=== PATIENT | male | born 1975 | race Asian ===

== ENCOUNTER 2020-09-02 18:24 | Inpatient (IN) | payer BC ==
[~2020-09-02] VITALS: Ht 170.2 cm; Wt 65.8 kg
--- NOTE | 2020-09-02 21:30 | NUR ---
GENERAL SCIENCE TEACHER NOTES PATIENT ARRIVED IN THE UNIT AT 2109 FROM [facility] VIA GURNEY. PATIENT ALERT AND ORIENTED X 4. NOTED WITH SOB WITH O2SAT AT 77 % ON 5 L, INCREASED IT TO 15L VIA HF NC FROM [facility], HUMIDIFIER APPLIED. O2 SAT WENT UP TP 91 % PATIENT REFUSED NON REBREATHER MASK. STATES "I WILL BE FINE, LET ME SETTLE DOWN" PT REFUSES ANXIETY, DENIES ANY PAIN. RIGHT HAND SALINE LOCK G20, FLUSHED ASEPTICALLY. NO SIGNS OF INFECTION. SKIN ASSESSMENT DONE. SKIN INTACT, NO SKIN BREAKDOWN NOTED. KEPT HOB ELEVATED. ON TELE SR HR79. VS STABLE. NO FEVER, NO COUGHING. WAITING FOR MD TO GIVE ADMITTING ORDERS. SIDE RAILS UP X 2. CALL LIGHT WITHIN REACH. BED LOCKED IN LOWEST POSITION. WILL CONTINUE TO MONITOR CLOSELY.
--- NOTE | 2020-09-02 22:00 | NUR ---
MUTTON PUNCHER DOCTOR JUAN INFORMED REGARDING NEED OF ADMITTING ORDERS. MRSA SWAB SPECIMEN COLLECTED AND SEND TO LAB.
[2020-09-02] MEDS ORDERED: VALS1TAB6 PO (23:11)
[2020-09-02] MEDS ORDERED: THIA100T88 PO (23:11)
[2020-09-02] MEDS ORDERED: ENOX40DI SQ (23:11)
[2020-09-02] MEDS ORDERED: ZINC220T4 PO (23:11)
[2020-09-02] MEDS ORDERED: MELA3TAB41 PO (23:11)
[2020-09-02] MEDS ORDERED: REMD100V IV (23:11)
[2020-09-02] MEDS ORDERED: DEXA4TAB PO (23:11)
[2020-09-02] MEDS ORDERED: CHOL200026 PO (23:11)
[2020-09-02] MEDS ORDERED: ASCO100058 PO (23:11)
[2020-09-02] MEDS ORDERED: HYDROCODONE/APAP 5/325MG TABLET PO PRN (23:30)
[2020-09-02] MEDS ORDERED: MAG HYDROX/AL HYDROX/SIMETH 30 ML UDC PO PRN (23:30)
[2020-09-02] MEDS ORDERED: Z GUARD REMEDY 2 OZ OINT TP PRN (23:30)
[2020-09-02] MEDS ORDERED: ZOLPIDEM TARTRATE 5 MG TABLET PO PRN (23:30)
[2020-09-02] MEDS ORDERED: MAGNESIUM HYDROXIDE 30 ML UDC PO PRN (23:30)
[2020-09-02] MEDS ORDERED: ONDANSETRON HCL/PF 4 MG/2 ML VIAL IVP PRN (23:30)
--- NOTE | 2020-09-02 23:45 | NUR ---
FRAUD MANAGER NOTES PER PT, NASAL CANNULA CAME OFF ACCIDENTALLY. O2 SAT DROP DOWN TO 70S. NO RESP DISTRESS NOTED. RE APPLIED HF NC AT 15L. O2SAT WENT UP TO 90-91 %
[2020-09-03] VITALS (16 sets, daily range): BP systolic 96–129; BP diastolic 61–93
[2020-09-03 00:01] LABS: C-REACTIVE PROTEIN 5.9 mg/dL (0.0-0.9)
--- NOTE | 2020-09-03 00:51 | NUR ---
INSPECTION MACHINE TENDER NOTE PATIENT O2 SAT AT 94-95 % ON HFNC 15L.
--- NOTE | 2020-09-03 02:21 | NUR ---
ICEBOX MAN NOTE PT BECOMES ANXIOUS, DR MARTINEZ INFORMED, RECEIVED NEW ORDERED. ORDER NOTED AND CARRIED OUT. ATIVAN 0.5 MG PO GIVEN.
[2020-09-03] MEDS ORDERED: LORAZEPAM 0.5 MG TABLET PO PRN (02:30)
--- NOTE | 2020-09-03 03:21 | NUR ---
SECURITY STRATEGIST NOTE PT FALL ASLEEP, ANXIETY SUBSIDED. CONTINUE TO MONITOR HIM.
[2020-09-03] MEDS ORDERED: ALBUTEROL SULFATE INH 18 GM HFA.AER.AD IH PRN ×2 (03:30)
[2020-09-03] MEDS ORDERED: ALBUTEROL SULFATE 8 GM HFA.AER.AD ONE (05:10)
[2020-09-03 06:47] LABS: BASOPHILS % (AUTO) 0.1 % (0.0-2.0); HEMATOCRIT 49 % (39-51); HEMOGLOBIN 16.2 g/dL (13.5-17.5); LYMPHOCYTES % (AUTO) 7.1 % (20.0-44.0); MEAN CORPUSCULAR HGB CONC 33 g/dl (31.0-36.0); MEAN CORPUSCULAR VOLUME 93 fL (80-96); MONOCYTES # (AUTO) 1.1 /CMM (0.1-1.30); MONOCYTES % (AUTO) 8.2 % (2.0-12.0); NEUTROPHILS # (AUTO) 11.3 /CMM (1.8-8.9); NEUTROPHILS % (AUTO) 84.6 % (43.0-81.0); PLATELET COUNT (AUTO) 260 /CMM (150-450); RED BLOOD CELL COUNT(AUTO) 5.24 MIL/uL (4.5-6.0); WHITE BLOOD COUNT (AUTO) 13.4 K/uL (4.3-11.0)
--- NOTE | 2020-09-03 06:50 | NUR ---
PATIENT TRANSPORT OFFICER CLOSING NOTE PATIENT SATURATING IN 82-84% ON HFNC 15LPM. PT AGREED TO HAVE NON REBREATHER, APPLIED AT 15LPM. SATING AT 90 % AT THIS TIME. PT HAVING ANXIETY ON AND OFF, REASSURED PT. LEFT MSG TO DR MARTINEZ. WAITING FOR CALL BACK. KEPT IN A CALM AND COMFORTABLE ENVIRONMENT. ON FREQUENT VISUAL CHECK, ATTENDED TO NEEDS.
[2020-09-03 07:08] LABS: CALCIUM, SERUM 9.1 mg/dL (8.5-10.1); CARBON DIOXIDE 30 mmol/L (21-32); CHLORIDE 101 mmol/L (98-107); GLUCOSE 123 mg/dL (74-106); MAGNESIUM 2.8 mg/dL (1.8-2.4); PHOSPHORUS 3.2 mg/dL (2.5-4.9); POTASSIUM 3.4 mmol/L (3.5-5.1); SODIUM SERUM 142 mmol/L (136-145); UREA NITROGEN, BLOOD 15 mg/dL (7-18)
[2020-09-03 07:20] LABS: D-DIMER > 35.20 mg/L(FEU (0.17-0.50)
[2020-09-03] MEDS: LORAZEPAM INJ 2 MG/ML VIAL IV PRN ×2 (07:26→17:56)
--- NOTE | 2020-09-03 07:26 | NUR ---
CERTIFIED PEDIATRIC NURSE PRACTITIONER NOTE PATIENT REMOVED THE NONREBREATHER, PER PT ITS UNCOMFORTABLE. WAS PUT ON HFNC AGAIN ON 15LPM. EXPLAINED THAT NONREBREATHER WILL HELP HIS O2 TO GO UP. PT STILL INSIST WITH THE NC. O2 SAT AT 85 %. KEPT HOB ELEVATED. PT IS HAVING SEVERE ANXIETY. MD MADE AWARE, ORDERED ATIVAN 1MG IVP Q6H PRN NOTED AND CARRIED OUT. WILL ENDORSE TO NEXT SHIFT NURSE FOR COMFORT. ALL SAFETY MEASURES IMPLEMENTED PER PROTOCOL. CALL LIGHT WITHIN REACH BED LOCKED, IN LOWEST POSITION. WILL ENDORSE TO NEXT SHIFT NURSE FOR COMFORT.
--- NOTE | 2020-09-03 07:35 | NUR ---
ms rn received patient on bed, awake,alert,oriented x4,on nasal cannula 15 liters saturating 81-83%, refused non rebreather mask per night baker, will continue to monitor patient.
[2020-09-03 08:21] LABS: ALANINE AMINOTRANSFERASE 213 U/L (12-78); ALBUMIN 2.7 g/dL (3.4-5.0); ALKALINE PHOSPHATASE 140 U/L (46-116); ASPARTATE AMINOTRANSFERASE 95 U/L (15-37); BILIRUBIN,DIRECT 0.2 mg/dL (0.0-0.2); BILIRUBIN,TOTAL 0.6 mg/dL (0.2-1.0); TOTAL PROTEIN, SERUM 7.4 g/dL (6.4-8.2)
--- NOTE | 2020-09-03 08:30 | NUR ---
ms rn refused breakfast, patient took all his morning meds, all needs attended.
[2020-09-03] MEDS ORDERED: ENOXAPARIN SODIUM 40 MG/0.4 ML DISP.SYRIN SQ SCH (09:00)
[2020-09-03] MEDS ORDERED: REMDESIVIR (CHARGED) 200 MG, *LOADING DOSE 1 EA in IV NS 0.9% 210 ML IV ONE (09:00)
[2020-09-03] MEDS: DEXAMETHASONE SOD PHOSPHATE 10 MG/ML VIAL IV SCH (09:16)
[2020-09-03] MEDS: CHOLECALCIFEROL 1,000 UNIT TABLET (VIT D3) PO SCH (09:16)
[2020-09-03] MEDS: ZINC SULFATE 220 MG CAPSULE PO SCH (09:17)
[2020-09-03] MEDS: ASCORBIC ACID 500 MG TABLET PO SCH (09:17)
[2020-09-03] MEDS: THIAMINE HCL 100 MG TABLET PO SCH (09:17)
--- NOTE | 2020-09-03 09:30 | NUR ---
ms rn patient is anxious, saturation going down to 60%, hard time breathing, repositioned to right side, w/ saturation of 88%, waiting to be transferred to icu.
[2020-09-03] MEDS ORDERED: POTASSIUM CHLORIDE 20 MEQ TAB.PRT.SR PO ONE (10:00)
--- NOTE | 2020-09-03 10:05 | NUR ---
rn patient transferred to icu, report given to Cipriano saunders.
--- NOTE | 2020-09-03 10:10 | NUR ---
ICU/RN: RECEIVED PT FROM DOMI. PT ANXIOUS, DESATURATING, INCREASED WORK OF BREATHING NOTED. PLACED ON HI-FLOW 40LITERS AND 100% FIO2. PT ALERT, AWAKE, FOLLOWS COMMANDS. SINUS TACH ON TELE. URINAL AT BEDSIDE, SKIN INTACT. ALL NEEDS WILL BE ATTENDED TO, SAFETY MEASURES TAKEN, BED IN LOW POSITION, SIDE RAILS UP, CALL LIGHT WITHIN REACH. WILL CONTINUE CARE.
[2020-09-03 10:13] LABS: CHOLESTEROL 145 mg/dL (<200); CREATINE KINASE, TOTAL 292 U/L (39-308); FERRITIN 4785 ng/mL (8-388); HDL CHOLESTEROL 29 mg/dL (40-60); LDL 89 mg/dL (0-99); THYROID STIMULATING HORMONE 0.173 uIU/mL (0.358-3.74); TRIGLYCERIDES 169 mg/dL (30-150)
--- NOTE | 2020-09-03 12:00 | NUR ---
ICU/RN: RIGHT UPPER ARM PICC PLACED. PLACEMENT VERIFIED. NO S/S OF BLEEDING OR INFECTION NOTED. WILL CONTINUE TO MONITOR AND ASSESS.
[2020-09-03] MEDS: REMDESIVIR (CHARGED) 100 MG in IV NS 0.9% 230 ML IV SCH (12:35)
[2020-09-03 13:07] LABS: ABG BASE EXCESS 2.5 mmol/L; ABG OXYGEN SATURATION 96.4 % (92.0-98.5); ABG PCO2 30.7 mmHg (35.0-45.0); ABG PH 7.521 (7.350-7.450); AaDO2 604.3 mmHg; COHb 0.5 % (0.5-1.5); MetHb 0.3 % (0.0-1.5); O2Hb 95.6 % (94.0-97.0); SITE, ABG Right Radial
--- NOTE | 2020-09-03 16:30 | NUR ---
ICU/RN: CALLED BLOOD BANK TO INQUIRE ABOUT CONVALESCENT PLASMA. PER BLOOD BANK THEY ARE STILL WAITING FOR THE DELIVERY FROM BLOOD BANK. WILL FOLLOW UP. BLOOD TRANSFUSION CONSENT IN CHART.
--- NOTE | 2020-09-03 19:27 | NUR ---
ICU/RN ENDING NOTES,AM REPORT ENDORSED TO NIGHT NURSE FOR COMFORT. PT CONTINUES ON HI-FLOW AND 15LITERS NBR MASK, TOLERATING OK. SOB AND INCREASED WORK OF BREATHING NOTED. SINUS TACH ON TELE. PT NOTED TO PULL OFF MASK AT TIMES, REMINDED HIM THE IMPORTANCE OF KEEPING THE MASK ON. CONVALESCENT PLASMA PENDING, CALLED BLOOD BANK, NOT READY YET. ALL NEEDS ATTENDED TO, SAFETY MEASURES TAKEN, BED IN LOW POSITION, SIDE RAILS UP, CALL LIGHT WITHIN REACH. WILL CONTINUE CARE.
--- NOTE | 2020-09-03 21:10 | NUR ---
icu/communications department chair pt got out of bed, urinated on flood, large volume. was confused when tried to reorientation. this pt.
--- NOTE | 2020-09-03 21:45 | NUR ---
icu/dish up person pt took off all his oxygen sats fell to 70's with good wave form. replaced everything sats came back up to mid 80's. will monitor this pt.
[2020-09-03] MEDS: ENOXAPARIN SODIUM 40 MG/0.4 ML DISP.SYRIN SQ SCH (21:52)
[2020-09-03] MEDS ORDERED: CEFTRIAXONE 1 G VIAL IV SCH (22:30)
--- NOTE | 2020-09-03 23:00 | NUR ---
icu/central office installer Pt took of oxygen, sats fell rapidly to low 60's with a good wave form. replaced everything, sats slowly came back to only 80's. continue to monitor this pt.
[2020-09-03] MEDS ORDERED: AZITHROMYCIN 500 MG VIAL ONE (23:46)
[2020-09-04] VITALS (25 sets, daily range): BP systolic 84–142; BP diastolic 43–90
--- NOTE | 2020-09-04 | NUR ---
ICU/MAGNETIC TAPE TYPEWRITER OPERATOR PT WAS GIVEN ROCEPHIN 1GM IVP FOR ELEVATED WBC. THIS WAS ADMINISTERED BY CHARGE NURSE RN. THIS WAS ORDERED BY DMITRY BREWER
[2020-09-04] MEDS: AZITHROMYCIN 500 MG in IV D5W 250 ML IV SCH ×2 (00:23→21:48)
--- NOTE | 2020-09-04 00:30 | NUR ---
ICU/CRATE OPENER PT WAS GIVEN ZITHROMAX 500MG IVP FOR ELEVATED WBC. THIS WAS ADMINISTERED BY CHARGE NURSE RN. THIS WAS ORDERED BY DMITRY BREWER
[2020-09-04] MEDS: LORAZEPAM INJ 2 MG/ML VIAL IV PRN ×3 (00:55→22:05)
--- NOTE | 2020-09-04 02:00 | NUR ---
ICU/SCANNER OPERATOR 0045- PT COMPLAINED OF HAVING A PANIC ATTACK, NOTIFIED CHARGE NURSE WHO THEN GAVE ATIVAN I MG IVP. WILL CONTINUE TO MONITOR THIS PT'S ANXIETY. PT TOOK OFF HIS MASK AND HIGH FLOW, SATS FELL TO THE LOW 60'S, THIS WAS PLACED BACK ON, THEN PT WAS REPOSTIONED TO THE RIGHT SIDE. SATS ARE VERY SLOWLY COMING BACK UP TO HIGH 80'S.
[2020-09-04 04:36] LABS: BASOPHILS % (AUTO) 0.1 % (0.0-2.0); EOSINOPHILS % (AUTO) 0.1 % (0.0-6.0); HEMATOCRIT 40 % (39-51); HEMOGLOBIN 13.2 g/dL (13.5-17.5); LYMPHOCYTES # (AUTO) 1.1 /CMM (0.8-4.8); LYMPHOCYTES % (AUTO) 10.2 % (20.0-44.0); MEAN CORPUSCULAR HGB CONC 33 g/dl (31.0-36.0); MEAN CORPUSCULAR VOLUME 92 fL (80-96); MONOCYTES # (AUTO) 0.9 /CMM (0.1-1.30); MONOCYTES % (AUTO) 8.3 % (2.0-12.0); NEUTROPHILS # (AUTO) 9.1 /CMM (1.8-8.9); NEUTROPHILS % (AUTO) 81.3 % (43.0-81.0); PLATELET COUNT (AUTO) 210 /CMM (150-450); RED BLOOD CELL COUNT(AUTO) 4.33 MIL/uL (4.5-6.0); WHITE BLOOD COUNT (AUTO) 11.2 K/uL (4.3-11.0)
[2020-09-04 04:43] LABS: ALBUMIN 2.2 g/dL (3.4-5.0); BILIRUBIN,DIRECT 0.4 mg/dL (0.0-0.2); BILIRUBIN,TOTAL 0.8 mg/dL (0.2-1.0); CALCIUM, SERUM 7.8 mg/dL (8.5-10.1); MAGNESIUM 2.3 mg/dL (1.8-2.4); PHOSPHORUS 3.6 mg/dL (2.5-4.9); POTASSIUM 3.3 mmol/L (3.5-5.1)
--- NOTE | 2020-09-04 06:30 | NUR ---
ICU/VICE PRESIDENT [facility] 0500-PT STARTED TO HAVE A COUGHING FIT, NON-STOP, PT WAS VERY RED AND FLUSH. PT HAS TEMP 103.1 AX, COOLING MEASURES IN PLACE WITH ICE BAGS. ALSO GOT ORDER FOR BLOOD CULTURE X2 15 MINUTES APART, ALONG WITH PROCAL AND LACTIC. TYLENOL 650MG GIVEN WITH SIP OF WATER.
[2020-09-04] MEDS: ACETAMINOPHEN 325 MG TABLET PO PRN ×2 (06:49→21:11)
--- NOTE | 2020-09-04 07:38 | NUR ---
ICU/PUBLIC HEALTH WORKER PT REMAINS SLIGHTLY CONFUSED, PULLING OFF MASK WITH SATURATION FALLS RAPIDLY. DAY NURSE MADE AWARE.
[2020-09-04] MEDS: ASCORBIC ACID 500 MG TABLET PO SCH (08:10)
[2020-09-04] MEDS: THIAMINE HCL 100 MG TABLET PO SCH (08:10)
[2020-09-04] MEDS: CHOLECALCIFEROL 1,000 UNIT TABLET (VIT D3) PO SCH (08:10)
[2020-09-04] MEDS: ZINC SULFATE 220 MG CAPSULE PO SCH (08:11)
[2020-09-04] MEDS: DEXAMETHASONE SOD PHOSPHATE 10 MG/ML VIAL IV SCH (08:12)
[2020-09-04] MEDS: ENOXAPARIN SODIUM 40 MG/0.4 ML DISP.SYRIN SQ SCH ×2 (08:12→20:36)
[2020-09-04] MEDS: POTASSIUM CL. PREMIX PERIPHER. 50 ML IV SCH ×2 (11:13→12:28)
[2020-09-04 12:16] LABS: ABG BASE EXCESS 2.3 mmol/L; ABG OXYGEN SATURATION 91.2 % (92.0-98.5); ABG PCO2 32.6 mmHg (35.0-45.0); AaDO2 620.4 mmHg; COHb 0.8 % (0.5-1.5); MetHb 0.3 % (0.0-1.5); O2Hb 90.2 % (94.0-97.0); SITE, ABG Right Radial; VENT MODE, BG HFNC 40L 100% +NRB
[2020-09-04] MEDS: REMDESIVIR (CHARGED) 100 MG in IV NS 0.9% 230 ML IV SCH (12:28)
[2020-09-04 13:22] LABS: FERRITIN 2022 ng/mL (8-388)
--- NOTE | 2020-09-04 15:20 | NUR ---
THROUGHOUT DAY, PATIENT REMAINS CONFUSED AND CONTINUES TO REMOVE MASK. 1:1 SITTER FOR CONSTANT MONITORING. PATIENT TRIES TO GET OUT OF BED. ON HIGH-FLOW AND NON-REBREATHER SATING IN THE 90S NOW, BUT QUICK DESATURATION IF HE REMOVES HIS MASK. DR FRIEDMAN DISCUSSED POSSIBLE ELECTIVE INTUBATION TO TRANSFER PATIENT TO [facility]. AWAITING CLINICAL DECISION. PER DR FRIEDMAN, PATIENT TO REMAIN NPO, BUT OK TO TAKE SMALL SIPS OF WATER IF PATIENT GETS THIRSTY. WILL CONTINUE TO MONITOR PATIENT.
--- NOTE | 2020-09-04 16:20 | NUR ---
SPOKE WITH LAB, CONVALESCENT PLASMA HAS BEEN ORDERED FROM [facility], TIME OF ARRIVAL UNKNOWN D/T A HIGH DEMAND IN SUPPLY.
--- NOTE | 2020-09-04 16:39 | NUR ---
PER DR FRIEDMAN, ELECTIVE INTUBATION WOULD NOT BE IN THE PATIENT'S BEST INTEREST D/T PATIENT'S SATURATION IN THE HIGH 80S AND LOW 90S AT THIS TIME. WILL INFORM PATIENT AND CONTINUE TO MONITOR.
--- NOTE | 2020-09-04 17:42 | NUR ---
PATIENT REFUSING TO WEAR DVT PUMPS
--- NOTE | 2020-09-04 18:54 | NUR ---
PATIENT CONTINUES TO BE CONFUSED AND ATTEMPTING TO REMOVE OXYGEN. STILL ON NON-REBREATHER AND HI-FLOW, SATING IN THE HIGH 80S, LOW 90S. SINUS TACHY IN THE 110S NOTED ON BEDSIDE MONITOR. SAFETY MEASURES IMPLEMENTED, BED IN LOWEST POSITION, LOCKED, SIDE RAILS UP, CALL LIGHT WITHIN REACH. WILL ENDORSE TO ONCOMING SHIFT RN FOR CONTINUITY OF CARE.
[2020-09-04] MEDS ORDERED: CEFTRIAXONE 1 G in IV D5W 50 ML IV SCH (22:00)
--- NOTE | 2020-09-04 22:00 | NUR ---
SEEN BY DMITRY ACEVEDO BAG MAKER ONCALL, PT COMPLAINT OF NOT SLEEPING, DMITRY GREER TO GIVE THE ATIVAN PRN, WILL CONT TO MONITOR THE PT
[2020-09-05] VITALS (57 sets, daily range): BP systolic 59–167; BP diastolic 42–106
--- NOTE | 2020-09-05 00:52 | NUR ---
PT STILL LITTLE CONFUSED THERES STILL EPISODE OF REMOVING HIS NRM SITTER ON BED SIDE SPO2 90% BUT UPON REMOVING THE NRM IT GOES TO LOW 80'S WILL KEEP ON MONITORING THE PT
[2020-09-05] MEDS ORDERED: LORAZEPAM INJ 2 MG/ML VIAL IV ONE (03:00)
--- NOTE | 2020-09-05 03:00 | NUR ---
pt is very anxious and asking for ativan, but his ativan is due on 404, informed DMITRY ACEVEDO NP personal banking advisor with order to give 1mg ativan iv x1 now noted and carried out Addendum: 09/05/20 at 0431 by FUAD RIVAS RN HIS SPO2 IS GETTING DOWN TO 78 DUE TO HE KEEP REMOVING THE NRM, KEEP REMINDING THE PT TO NOT REMOVED SITTER AT BED SIDE WILL CONT TO MONITOR
[2020-09-05] MEDS: ACETAMINOPHEN 325 MG TABLET PO PRN (03:33)
--- NOTE | 2020-09-05 03:45 | NUR ---
PT IS COUGHING AT THIS MOMENT ASK MARY ACEVEDO CLIENT SOLUTIONS MANAGER INFORMED WITH ORDERS MADE AND CARRIED OUT WILL CONT TO MONITOR THE PT
[2020-09-05] MEDS ORDERED: GUAIFENESIN/CODEINE 10 ML UDC ONE (03:48)
[2020-09-05] MEDS: GUAIFENESIN/CODEINE 10 ML UDC PO PRN (03:50)
--- NOTE | 2020-09-05 04:26 | NUR ---
CONVALESCENT PLASMA WAS READY BUT PT TEMP @ 0345 IS 102.4 TYLENOL WAS GIVEN AND HIS TEMP AT THIS MOMENT IS 99.5, ASK ADVISE FROM MARY ACEVEDO NP AND SHE SAYS JUST WAIT TO LOWER DOWN THE TEMP FIRST, LAB MADE AWARE TO HOLD THE PLASMA FOR A WHILE UNTIL TEMP OF THE PT GOES DOWN, WILL CONT TO MONITOR THE PT
[2020-09-05 04:46] LABS: BASOPHILS % (AUTO) 0.2 % (0.0-2.0); EOSINOPHILS % (AUTO) 0.2 % (0.0-6.0); HEMATOCRIT 39 % (39-51); HEMOGLOBIN 12.9 g/dL (13.5-17.5); LYMPHOCYTES # (AUTO) 1.3 /CMM (0.8-4.8); LYMPHOCYTES % (AUTO) 7.8 % (20.0-44.0); MEAN CORPUSCULAR HGB CONC 33 g/dl (31.0-36.0); MEAN CORPUSCULAR VOLUME 94 fL (80-96); MONOCYTES # (AUTO) 1.1 /CMM (0.1-1.30); MONOCYTES % (AUTO) 6.7 % (2.0-12.0); NEUTROPHILS % (AUTO) 85.1 % (43.0-81.0); PLATELET COUNT (AUTO) 198 /CMM (150-450); RED BLOOD CELL COUNT(AUTO) 4.21 MIL/uL (4.5-6.0); WHITE BLOOD COUNT (AUTO) 16.4 K/uL (4.3-11.0)
[2020-09-05 04:54] LABS: BILIRUBIN,DIRECT 0.5 mg/dL (0.0-0.2); BILIRUBIN,TOTAL 0.9 mg/dL (0.2-1.0); CALCIUM, SERUM 7.4 mg/dL (8.5-10.1); MAGNESIUM 2.2 mg/dL (1.8-2.4); PHOSPHORUS 3.3 mg/dL (2.5-4.9); POTASSIUM 3.3 mmol/L (3.5-5.1); TOTAL PROTEIN, SERUM 5.9 g/dL (6.4-8.2)
[2020-09-05 05:35] LABS: C-REACTIVE PROTEIN 20.8 mg/dL (0.0-0.9)
--- NOTE | 2020-09-05 06:19 | NUR ---
PT LATEST TEMP IS 99.5 PER DMITRY ACEVEDO DAYLIGHT DRILLER ONCALL WAIT UNTIL HIS TEMPERATURE NORMALIZED BEFORE TO TRANSFUSED THE CONVALESCENT PLASMA, COOLING MEASURE ADMINISTERED TO THE PT WILL CONT TO MONITOR
--- NOTE | 2020-09-05 06:56 | NUR ---
PT IS ASKING FOR TYLENOL, I TOLD HIM THAT THE NEXT DOSE IS @ 0930 AND IF HE WANTS I CAN GIVE HIM THE NORCO, BUT PT IS STILL INSISTING FOR TYLENOL, INFORMED SEARCH ENGINE OPTIMIZATION STRATEGIST DMITRY ACEVEDO WITH ORDER TO GIVE 1 TIME DOSE OF TYLENOL 650 MG PO NOTED AND CARRIED OUT
[2020-09-05] MEDS ORDERED: ACETAMINOPHEN 325 MG TABLET PO ONE ×2 (07:00→20:00)
--- NOTE | 2020-09-05 07:15 | NUR ---
PT LATEST TEMP IS 99.2 SPO2 86% VIA NON REABREATHER AND HIGH FLOW STILL PT IS CONFUSED AND KEEP REMOVING HIS NRM WHICH MAKE HIS SPO2 DROP TO LOW 80'S KEEP ORIENTING AND REMINDING PT TO NOT REMOVED THE NRM, SITTER AT BED SIDE WILL CONT TO MONITOR
[2020-09-05] MEDS: ENOXAPARIN SODIUM 40 MG/0.4 ML DISP.SYRIN SQ SCH ×2 (08:15→21:13)
[2020-09-05] MEDS: THIAMINE HCL 100 MG TABLET PO SCH (08:16)
[2020-09-05] MEDS: ASCORBIC ACID 500 MG TABLET PO SCH (08:16)
[2020-09-05] MEDS: DEXAMETHASONE SOD PHOSPHATE 10 MG/ML VIAL IV SCH (08:16)
[2020-09-05] MEDS: CHOLECALCIFEROL 1,000 UNIT TABLET (VIT D3) PO SCH (08:16)
[2020-09-05] MEDS: ZINC SULFATE 220 MG CAPSULE PO SCH (08:16)
--- NOTE | 2020-09-05 10:01 | NUR ---
PATIENT IN BED, STILL CONFUSED AND FORGETFUL. CONVALESCENT PLASMA TRANSFUSING AT THIS TIME. PATIENT HAS NO COMPLAINTS, NO SIGNS OF REACTION NOTED. WILL CONTINUE TO MONITOR PATIENT.
[2020-09-05] MEDS: LORAZEPAM INJ 2 MG/ML VIAL IV PRN (10:32)
[2020-09-05] MEDS: POTASSIUM CL. PREMIX PERIPHER. 50 ML IV SCH ×2 (10:34→11:38)
[2020-09-05 10:51] LABS: ABG BASE EXCESS 3.5 mmol/L; ABG OXYGEN SATURATION 85.6 % (92.0-98.5); ABG PCO2 33.8 mmHg (35.0-45.0); ABG PH 7.508 (7.350-7.450); ABG PO2 47.8 mmHg (75.0-100.0); AaDO2 631.4 mmHg; COHb 0.7 % (0.5-1.5); MetHb 0.3 % (0.0-1.5); O2Hb 84.7 % (94.0-97.0); VENT MODE, BG HFNC 40 L+NRB
--- NOTE | 2020-09-05 11:21 | NUR ---
CONVALESCENT PLASMA TRANSFUSED, NO SIGNS OF TRANSFUSIONS REACTIONS NOTED AT THIS TIME.
[2020-09-05] MEDS: PROPOFOL 100 ML IV PRN ×6 (12:45→23:01)
[2020-09-05] MEDS ORDERED: MORPHINE SULFATE INJ 10 MG/ML DISP.SYRIN IV STA (13:04)
[2020-09-05] MEDS: NOREPINEPHRINE 8 MG in IV NS 0.9% 242 ML IV PRN (13:59)
[2020-09-05] MEDS: REMDESIVIR (CHARGED) 100 MG in IV NS 0.9% 230 ML IV SCH (14:09)
[2020-09-05] MEDS: FENTANYL CITRAT IV 2,500 MCG in IV NS 0.9% 200 ML IV PRN (14:33)
[2020-09-05 15:27] LABS: ABG BASE EXCESS -1.6 mmol/L; ABG OXYGEN SATURATION 80.1 % (92.0-98.5); ABG PCO2 42.1 mmHg (35.0-45.0); ABG PH 7.368 (7.350-7.450); ABG PO2 46.8 mmHg (75.0-100.0); AaDO2 624.1 mmHg; COHb 0.8 % (0.5-1.5); MetHb 0.2 % (0.0-1.5); O2Hb 79.3 % (94.0-97.0); PEEP,BG 12 cm H2O; SITE, ABG Right Radial; VT, ABG 450 mL
--- NOTE | 2020-09-05 15:45 | NUR ---
PATIENT IS CURRENTLY INTUBATED, RT FREQUENTLY ROUNDING ON PATIENT AND ADJUSTING SETTINGS. PATIENT IS CURRENTLY SATING AT 98% WITH FIO2 100% AND PEEP OF 16. PATIENT IS CURRENTLY ON LEVOPHED, FENTANYL AND DIPRIVAN. PER DR FRIEDMAN, WILL INSERT ARREGUIN. WILL CONTINUE TO MONITOR PATIENT.
--- NOTE | 2020-09-05 16:11 | NUR ---
PT ORALLY INTUBATED WITH 7.5 ET-TUBE SECURED AT 23CM. SMALL PALE BLOOD TINGED. B/S EQUAL. ALARMS SET AND AUDIBLE AMBUBAG AT HEAD OF BED. SETTINGS ORDERED TOLERATING. ZERO DISTRESS NOTED AT THIS TIME. Addendum: 09/05/20 at 1617 by GEOVANNI MARLOW RT Amended: Links added.
--- NOTE | 2020-09-05 16:54 | NUR ---
PER DORINA ESCALERA (PERSON TO NOTIFY), #1 CONTACT IS IRVING MOLINA (COUSIN) [phone]
--- NOTE | 2020-09-05 18:15 | NUR ---
INFORMED LAB TO USE AM BLOOD FOR TRIGLYCERIDES
--- NOTE | 2020-09-05 18:16 | NUR ---
STOOL COLLECTED AND PICKED UP FROM LAB
[2020-09-05 18:40] LABS: OCCULT BLOOD STOOL POSITIVE (NEGATIVE)
--- NOTE | 2020-09-05 18:52 | NUR ---
RECEIVED A CALL FROM WILLIE FRYE FROM [employer]. STATED IF AUTHORIZATION IS NEEDED FOR THE PROCEDURE AT [facility], TO CONTACT HER DIRECT NUMBER FOR IMMEDIATE AUTHORIZATION . FORWARDED MESSAGE TO DR MINOR AND DR FRIEDMAN, WILL ENDORSE TO ONCOMING SHIFT RN TO INFORM CASE MANAGEMENT/ ELECTRICAL MACHINE BUILDER IN THE MORNING.
--- NOTE | 2020-09-05 18:57 | NUR ---
DR MINOR ALSO AWARE OF GRAM POSITIVE COCCI IN BLOOD
--- NOTE | 2020-09-05 18:59 | NUR ---
FENTANYL BROUGHT IN BY PHARMACY AND PLACED IN LOCK BOX, WILL ENDORSE TO ONCOMING SHIFT RN TO USE THAT BAG FIRST.
[2020-09-05] MEDS ORDERED: TOCILIZUMAB 400 MG in IV NS 0.9% 80 ML IV ONE (20:00)
[2020-09-05] MEDS ORDERED: diphenhydrAMINE HCL 50 MG/ML VIAL IV ONE (20:00)
--- NOTE | 2020-09-05 20:00 | NUR ---
Received report from outgoing RN.Patient assessment done see flow sheet.Dx: COVID Pneumonia. Patient orally intubated on full vent support sand sedated on Diprivan gtt max at 100 mcg,Fentanyl gtt at 2 mcg and Levophed gtt for BP support and will titrate accordingly to keep SPB > 90.VSS. SR per tele monitoring.FC to gravity drainage.All IV's infusing via SERINA PICC LINE and site intact. Turned and repositioned.No acute distress noted.
--- NOTE | 2020-09-05 21:49 | NUR ---
RT NOTE PATIENT ORALLY INTUBATED WITH SIZE 7.5CM ETT 23CM AT THE LIP. ETT IS PATENT AND SECURED. NO SIGNS OF RESPIRATORY DISTRESS AT THIS TIME. PT SUCTIONED FOR SMALL, PALE, BLOOD TINGED SECRETIONS. PATIENT IS TOLERATING CURRENT MECHANICAL VENT SETTINGS. ALARMS ARE SET AND AUDIBLE. AMBU BAG IS AT PATIENT BEDSIDE. MECHANICAL VENT IS PLUGGED INTO RED OUTLET. WILL CONTINUE TO MONITOR. Addendum: 09/06/20 at 0521 by ADAM BARNES RT Amended: Links added.
[2020-09-05] MEDS: AZITHROMYCIN 500 MG in IV D5W 250 ML IV SCH (22:23)
[2020-09-05] MEDS: VANCOMYCIN 1 GM VIAL ONE ×2 (22:23→23:35)
[2020-09-05] MEDS ORDERED: VANCOMYCIN 1.5 GM in IV D5W 500ml IV ONE (23:00)
[2020-09-05] MEDS ORDERED: CEFEPIME 1 GM VIAL ONE ×3 (23:30→23:50)
--- NOTE | 2020-09-05 23:30 | NUR ---
Patient started on Norcuron gtt and will titrate per protocol of TOF.
[2020-09-05] MEDS: VECURONIUM 50 MG in IV NS 0.9% 50 ML IV PRN (23:33)
[2020-09-05] MEDS: CEFEPIME 2 GM in IV D5W 100 ML IV SCH (23:41)
[2020-09-06] VITALS (97 sets, daily range): BP systolic 71–151; BP diastolic 36–99
[2020-09-06] MEDS: PROPOFOL 100 ML IV PRN ×6 (01:15→22:40)
--- NOTE | 2020-09-06 01:20 | NUR ---
Received orders from regarding Norcuron GTT and carried out.Patient closely monitored Q 30 min checking TOF and titration of Diprivan gtt and Levophed gtt.No acute distress noted.
--- NOTE | 2020-09-06 01:35 | NUR ---
Received call from patient Aunt Luiza ,Spokesperson.Updated of patient status. And will come in AM to fern picker patient belongings.
[2020-09-06] MEDS ORDERED: diphenhydrAMINE HCL 50 MG/ML VIAL ONE (02:03)
[2020-09-06] MEDS: ACETAMINOPHEN 325 MG TABLET PO PRN ×2 (02:04→02:07)
--- NOTE | 2020-09-06 02:30 | NUR ---
VerIfied with regarding Actemra.Per pharmacy not to administer until the result of cryptococcus and TB Gold Plus and others are in which is still pending.Per to give now dont wait for result..Premedications given as ordered.
--- NOTE | 2020-09-06 02:33 | NUR ---
Received call from regarding adjustment of TOF leads and carried out.
--- NOTE | 2020-09-06 04:00 | NUR ---
Continue to monitor patient.Bed bath rendered and complete linens changed.Turned and repositioned.
[2020-09-06] MEDS: CEFEPIME 2 GM in IV D5W 100 ML IV SCH ×3 (05:21→21:00)
[2020-09-06 05:40] LABS: BASOPHILS % (AUTO) 0.1 % (0.0-2.0); EOSINOPHILS % (AUTO) 0.1 % (0.0-6.0); HEMATOCRIT 36 % (39-51); HEMOGLOBIN 11.5 g/dL (13.5-17.5); LYMPHOCYTES # (AUTO) 0.7 /CMM (0.8-4.8); LYMPHOCYTES % (AUTO) 4.1 % (20.0-44.0); MEAN CORPUSCULAR HGB CONC 32 g/dl (31.0-36.0); MEAN CORPUSCULAR VOLUME 95 fL (80-96); MONOCYTES # (AUTO) 1.1 /CMM (0.1-1.30); MONOCYTES % (AUTO) 6.5 % (2.0-12.0); NEUTROPHILS # (AUTO) 15.2 /CMM (1.8-8.9); NEUTROPHILS % (AUTO) 89.2 % (43.0-81.0); PLATELET COUNT (AUTO) 194 /CMM (150-450); RED BLOOD CELL COUNT(AUTO) 3.74 MIL/uL (4.5-6.0)
[2020-09-06 05:52] LABS: ABG BASE EXCESS 2.2 mmol/L; ABG OXYGEN SATURATION 99.6 % (92.0-98.5); ABG PH 7.431 (7.350-7.450); ABG PO2 289.8 mmHg (75.0-100.0); AaDO2 382.2 mmHg; COHb 0.3 % (0.5-1.5); MetHb 0.1 % (0.0-1.5); O2Hb 99.2 % (94.0-97.0); SITE, ABG Right Radial; VENT MODE, BG AC 28 450 100% +16
[2020-09-06 05:53] LABS: CALCIUM, SERUM 7.3 mg/dL (8.5-10.1); CREATININE 1.2 mg/dL (0.6-1.3); MAGNESIUM 2.9 mg/dL (1.8-2.4); POTASSIUM 3.6 mmol/L (3.5-5.1)
--- NOTE | 2020-09-06 06:00 | NUR ---
ABG'S resulted.pH=7.4,pCO2 41.0,HCO3 26.7 Vent setting FIO2 titrated down by RT Corazon at 60%. Will continue to monitor.Remains on critical condition.Awaiting transfer to [facility] for ECMO.All IV'S infusing well.All needs met.Will endorse to day shift RN for continuity of care.
[2020-09-06] MEDS: FENTANYL CITRAT IV 2,500 MCG in IV NS 0.9% 200 ML IV PRN ×2 (06:07→12:45)
[2020-09-06 06:51] LABS: C-REACTIVE PROTEIN 58.5 mg/dL (0.0-0.9)
[2020-09-06] MEDS: VECURONIUM 50 MG in IV NS 0.9% 50 ML IV PRN (07:13)
--- NOTE | 2020-09-06 07:15 | NUR ---
EP TECH NOTES RECEIVED PATIENT SEDATED , PARALYZED , NO ACUTE DISTRESS AT THIS TIME , SPO2 OF 97% VIA MECHANICAL VENT WITH SETTINGS OF AC 28 TV 450 FIO2 60% AND PEEP OF 16 , ETT 7.5/ , SR 75 ON BEDSIDE MONITOR , OGT IN PLACE CLAMPED , FC DRAINING VIA GRAVITY WITH CLEAR YELLOW URINE , SERINA PICC LINE WITH NS @ TKO , LEVOPHED 0.01MCG/KG/MIN , DIPRIVAN @ 45MCG/KG/MIN , FENTANYL @ 2MCG/KG/MIN , NORCURON @ 0.8MCG/KG/MIN INFUSING WELL , ALL NEEDS ATTENDED , WILL CONTINUE TO MONITOR ,.
--- NOTE | 2020-09-06 08:30 | NUR ---
CO FOUNDER AND CTO NOTES SEEN AND EVALUATED BY DR FRIEDMAN , DISCUSSED LABS , CHEST XRAY , AND CURRENT VENT SETTINGS WITH SPO2 OF 97% , AFEBRILE , ON LEVOPHED @ 0.02MCG/KG/MIN , FENTANYL @2MCG/KG/MIN , DIPRIVAN @ 45MCG/KG/MIN , NORCURON @0.9MCG/KG/MIN , MD AWARE , ORDERED TO TITRATE THE PEEP EVERY TWO HOURS TO KEEP SPO2 ABOVE 90% TARGET PEEP OF 10 , TITRATE FIO2 TO 50% , ORDER CARRIED OUT
[2020-09-06] MEDS ORDERED: VANCOMYCIN 1 GM in IV D5W 250 ML IV SCH (09:00)
[2020-09-06] MEDS: CHOLECALCIFEROL 1,000 UNIT TABLET (VIT D3) PO SCH (09:13)
[2020-09-06] MEDS: THIAMINE HCL 100 MG TABLET PO SCH (09:13)
[2020-09-06] MEDS: ASCORBIC ACID 500 MG TABLET PO SCH (09:13)
[2020-09-06] MEDS: DEXAMETHASONE SOD PHOSPHATE 10 MG/ML VIAL IV SCH (09:13)
[2020-09-06] MEDS: ZINC SULFATE 220 MG CAPSULE PO SCH (09:13)
[2020-09-06] MEDS: ENOXAPARIN SODIUM 40 MG/0.4 ML DISP.SYRIN SQ SCH ×2 (09:13→21:01)
[2020-09-06] MEDS: VANCOMYCIN 1 GM in IV D5W 250 ML IV SCH ×2 (09:14→17:24)
--- NOTE | 2020-09-06 11:09 | NUR ---
APPLICATION DEVELOPMENT DIRECTOR NOTES ETT ADJUSTED ORDERED , VENT CHANGES TO PEEP OF 12 AND FIO2 OF 50% , PUSH IN 2CM , , ETT OF 7.5/25 , SPO2 92-94% , WILL CONTINUE TO MONITOR .
[2020-09-06] MEDS: NOREPINEPHRINE 8 MG in IV NS 0.9% 242 ML IV PRN (12:53)
[2020-09-06] MEDS ORDERED: VECURONIUM 10 MG VIAL IV ONE (16:10)
[2020-09-06] MEDS ORDERED: PROPOFOL 200 MG/20 ML VIAL IV ONE (16:10)
[2020-09-06] MEDS ORDERED: SUCCINYLCHOLINE CHLORIDE 20 MG/ML VIAL IV ONE (16:10)
--- NOTE | 2020-09-06 17:31 | NUR ---
SCHOOL TRAFFIC GUARD NOTES SEEN AND EVALUATED BY DR MARTHA MINOR , DISCUSSED CURRENT VENT SETTINGS WITH SPO2 OF 95% ,SEDATED WITH FENTANYL @2MCG/KG/MIN , DIPRIVAN @ 25MCG/KG/MIN , ON LEVOPHED @ 0.03MCG/KG/MIN . PT HAD AN EPISODE OF BRADYCARDIA LOWEST IS 40-50BMP UPON REPOSITIONING , NORCURON OFF @ 1000AM , AFEBRILE , WITH GOOD URINE OUTPUT , MD AWARE . ORDERED STAT ABG , RT NOTIFIED
--- NOTE | 2020-09-06 17:33 | NUR ---
SPORTS LAWYER NOTES ALL BELONGINGS CHECK AND SENT HOME WITH IRVING (AUNT) , ACCOUNTED , NEXT OF KIN SIGNED AND TOOK HOME THE BELONGINGS
--- NOTE | 2020-09-06 18:40 | NUR ---
EVP STRATEGY NOTES VERIFIED WITH DR THOMAS IF DIET OF NPO CAN BE CHANGE TO NPO EXCEPT MEDS , PER MD START NGT FEEDING OF JEVITY @30ML/HR TITRATE TOLERATED MAX OF 50ML.HR . ORDER CARRIED OUT
--- NOTE | 2020-09-06 19:02 | NUR ---
COMPUTER PROGRAMMING PROFESSOR NOTES PATIENT STABLE AT THIS TIME SEDATED , NO ACUTE DISTRESS AT THIS TIME , SPO2 OF 96% VIA MECHANICAL VENT WITH SETTINGS OF AC 28 TV 450 FIO2 50% AND PEEP OF 12 , ETT 7.5/25 , SR 65 ON BEDSIDE MONITOR , OGT IN PLACE CLAMPED , FC DRAINING VIA GRAVITY WITH CLEAR YELLOW URINE , SERINA PICC LINE WITH NS @ TKO , LEVOPHED 0.01MCG/KG/MIN , DIPRIVAN @ 25MCG/KG/MIN , FENTANYL @ 2MCG/KG/MIN , INFUSING WELL , ALL NEEDS ATTENDED , REPORT GIVEN TO BRENDAN FOR CONTINUITY OF CARE
--- NOTE | 2020-09-06 19:59 | NUR ---
RT NOTES PT RECEIVED ORALLY INTUBATED WITH 7.5 ETT SECURED 25CM AT THE LIP LINE ON [facility] VENT ON SETTINGS AC MODE, RATE 28, VT 450, FIO2 50%, PEEP +12. NO RESP DISTRESS NOTED AT THIS TIME. WILL TITRATE PEEP TO +10 PER MD ORDERS. ABG TO BE DONE IN AN HOUR. FRAMING CONSULTANT DONE. PT SUCTIONED. ALARMS SET AND AUDIBLE. AMBUBAG AT BEDSIDE. VENT PLUGGED INTO RED OUTLET. WILL CONT TO MONITOR CLOSELY. Addendum: 09/06/20 at 2039 by RUFUS MCBRIDE RT Amended: Links added.
--- NOTE | 2020-09-06 20:00 | NUR ---
Received patient non verbal orally intubated on full vent support.Sedated on Diprivan gtt, Fentanyl gtt.VSS.SR with Levophed gtt infusing for BP support and will titrate accordingly to keep SBP>90.All IV's infusing via R upper arm PICC LINE and site intact.OGT clamped and placement verified.Will start Tube feeding awaiting feeding pump.Maintain HOB elevated. FC to gravity drainage.Turned and repositioned.No acute distress noted.
[2020-09-06 21:04] LABS: ABG BASE EXCESS 3.7 mmol/L; ABG OXYGEN SATURATION 94.6 % (92.0-98.5); ABG PCO2 36.3 mmHg (35.0-45.0); ABG PO2 67.9 mmHg (75.0-100.0); AaDO2 247.8 mmHg; COHb 0.4 % (0.5-1.5); MetHb 0.3 % (0.0-1.5); O2Hb 93.9 % (94.0-97.0); SITE, ABG Left Brachial
[2020-09-06] MEDS: JEVITY 1.2 CAL 1,000 ML BOTTLE GT PRN (21:08)
--- NOTE | 2020-09-06 21:30 | NUR ---
Patient ABG's resulted pH=7.4,pCO2=36.3,pO2=67.9,hco3v 27.0 called to with orders and carried out. RT increased FIO2 60%, lower down RR TO 26.Vent settings well tolerated.
--- NOTE | 2020-09-06 21:36 | NUR ---
settings change per Dr. Omer: rate 26 FIO2 60% Addendum: 09/06/20 at 2344 by RUFUS MCBRIDE RT Amended: Links added.
[2020-09-06] MEDS: AZITHROMYCIN 500 MG in IV D5W 250 ML IV SCH (22:36)
[2020-09-07] VITALS (85 sets, daily range): BP systolic 83–134; BP diastolic 25–99
--- NOTE | 2020-09-07 | NUR ---
Patient responding to voice open eyes when name called.Turned and repositioned.Oral care done. No distress noted.Tolerating OGT feeding.HOB remains elevated.Continue to monitor.
[2020-09-07] MEDS: VANCOMYCIN 1 GM in IV D5W 250 ML IV SCH ×3 (01:01→22:11)
--- NOTE | 2020-09-07 02:00 | NUR ---
Bed bath rendered for comfort.More responsive to voice and tactile stimuli.Explained procedure to be done.Follows simple commands when asked to open mouth for mouth care.Asked if he feels comfortable after bath and he nods his head.Turned and repositioned.Continue monitoring.
[2020-09-07] MEDS: FENTANYL CITRAT IV 2,500 MCG in IV NS 0.9% 200 ML IV PRN ×3 (03:09→19:12)
[2020-09-07 04:37] LABS: BASOPHILS % (AUTO) 0.1 % (0.0-2.0); HEMATOCRIT 33 % (39-51); HEMOGLOBIN 10.9 g/dL (13.5-17.5); LYMPHOCYTES # (AUTO) 0.6 /CMM (0.8-4.8); MEAN CORPUSCULAR HGB CONC 33 g/dl (31.0-36.0); MEAN CORPUSCULAR VOLUME 92 fL (80-96); MONOCYTES # (AUTO) 0.9 /CMM (0.1-1.30); MONOCYTES % (AUTO) 7.5 % (2.0-12.0); NEUTROPHILS % (AUTO) 87.4 % (43.0-81.0); PLATELET COUNT (AUTO) 256 /CMM (150-450); RED BLOOD CELL COUNT(AUTO) 3.54 MIL/uL (4.5-6.0); WHITE BLOOD COUNT (AUTO) 12.6 K/uL (4.3-11.0)
[2020-09-07] MEDS: CEFEPIME 2 GM in IV D5W 100 ML IV SCH ×3 (04:38→20:57)
[2020-09-07 05:03] LABS: CALCIUM, SERUM 7.2 mg/dL (8.5-10.1); CREATININE 1.3 mg/dL (0.6-1.3); MAGNESIUM 2.8 mg/dL (1.8-2.4); POTASSIUM 3.4 mmol/L (3.5-5.1)
[2020-09-07 05:13] LABS: C-REACTIVE PROTEIN 12.6 mg/dL (0.0-0.9)
[2020-09-07 05:14] LABS: ABG BASE EXCESS 2.2 mmol/L; ABG OXYGEN SATURATION 95.7 % (92.0-98.5); ABG PCO2 35.9 mmHg (35.0-45.0); ABG PH 7.472 (7.350-7.450); ABG PO2 76.8 mmHg (75.0-100.0); AaDO2 311.5 mmHg; COHb 0.1 % (0.5-1.5); MetHb 0.3 % (0.0-1.5); O2Hb 95.3 % (94.0-97.0); SITE, ABG Left Radial
[2020-09-07] MEDS: PROPOFOL 100 ML IV PRN (05:34)
--- NOTE | 2020-09-07 06:16 | NUR ---
Patient resting in no acute distress.All due medications administered.Cont Levophed gtt Fentanyl gtt and Diprivan gtt.Turned and repositioned.All needs met.Kept comfortable. Will endorse to day shift for COMFORT.
--- NOTE | 2020-09-07 07:15 | NUR ---
BUTTON DECORATING MACHINE OPERATOR NOTES PATIENT STABLE AT THIS TIME SEDATED , NO ACUTE DISTRESS AT THIS TIME , SPO2 OF 96-97% VIA MECHANICAL VENT WITH SETTINGS OF AC 26 TV 450 FIO2 60% AND PEEP OF 10 , ETT 7.5/25 , SB55 ON BEDSIDE MONITOR , OGT WITH JEVITY @ 30ML/HR TOLERATING WELL WITH NO RESIDUALS INCREASE RATE TO 4OML MAX DOSE IS 50ML TOLERATED , FC DRAINING VIA GRAVITY WITH CLEAR YELLOW URINE , SERINA PICC LINE WITH NS @ TKO , LEVOPHED 0.01MCG/KG/MIN , DIPRIVAN @ 35MCG/KG/MIN , FENTANYL @ 2MCG/KG/MIN , INFUSING WELL , ALL NEEDS ATTENDED , WILL CONTINUE TO MONITOR
--- NOTE | 2020-09-07 09:00 | NUR ---
LABORER CUTTING TOOL NOTES SEEN AND EVALUATED BY DR FRIEDMAN, DISCUSSED LABS , CHEST XRAY AND ABG , TOLERATING CURRENT VENT SETTINGS WITH SPO2 OF 95-97% WITH NO SIGNS OF DISTRESS , SEDATED WITH DIPRIVAN @35MCG/KG/MIN , ON LEVOPHED @ 0.01 - 0.02MCG/KG/MIN , PT WAS AWAKE LAST NIGHT ABLE TO FOLLOW COMMANDS PER NIGHT NURSE , AFEBRILE , MD AWARE .
[2020-09-07] MEDS: ZINC SULFATE 220 MG CAPSULE PO SCH (09:52)
[2020-09-07] MEDS: DEXAMETHASONE SOD PHOSPHATE 10 MG/ML VIAL IV SCH (09:52)
[2020-09-07] MEDS: THIAMINE HCL 100 MG TABLET PO SCH (09:52)
[2020-09-07] MEDS: ASCORBIC ACID 500 MG TABLET PO SCH (09:52)
[2020-09-07] MEDS: CHOLECALCIFEROL 1,000 UNIT TABLET (VIT D3) PO SCH (09:52)
[2020-09-07] MEDS: NOREPINEPHRINE 8 MG in IV NS 0.9% 242 ML IV PRN (09:53)
[2020-09-07] MEDS ORDERED: POTASSIUM CL. PREMIX PERIPHER. 50 ML IV SCH (10:30)
[2020-09-07] MEDS ORDERED: POTASSIUM CHLORIDE 20 MEQ POWDER PACKET NG ONE (10:30)
[2020-09-07] MEDS: ENOXAPARIN SODIUM 40 MG/0.4 ML DISP.SYRIN SQ SCH ×2 (10:49→20:58)
[2020-09-07] MEDS ORDERED: LORAZEPAM INJ 2 MG/ML VIAL IV ONE (11:00)
--- NOTE | 2020-09-07 11:40 | NUR ---
YARD SPOTTER NOTES NOTIFIED DR FRIEDMAN REGARDING PT TRIGLYCERIDES , PER MD ERI BURGER , PUT FENTANYL TO MAX DOSE , START VERSED @7MG/HR , ASKED IF WE CAN GIVE ATIVAN PRIOR TO TRANSITION , PER MD GIVEN ATIVAN 2MG X1 IVP , ORDERS CARRIED OUT
[2020-09-07] MEDS: MIDAZOLAM HCL 100 MG in IV NS 0.9% 80 ML IV PRN ×2 (11:59→23:10)
--- NOTE | 2020-09-07 19:29 | NUR ---
VISUAL BASIC PROGRAMMER NOTES PATIENT STABLE AT THIS TIME SEDATED , NO ACUTE DISTRESS AT THIS TIME , SPO2 OF 96-97% VIA MECHANICAL VENT WITH SETTINGS OF AC 26 TV 450 FIO2 50% AND PEEP OF 10 , ETT 7.5/25 , SR 65 ON BEDSIDE MONITOR , OGT WITH JEVITY @ 50ML/HR TOLERATING WELL WITH NO RESIDUALS , FC DRAINING VIA GRAVITY WITH CLEAR YELLOW URINE , SERINA PICC LINE WITH NS @ TKO , FENTANYL @ 3MCG/KG/MIN , VERSED @75MG/HR , INFUSING WELL , ALL NEEDS ATTENDED , REPORT GIVEN TO BAKARI FOR CONTINUITY OF CARE
--- NOTE | 2020-09-07 22:17 | NUR ---
ICU/TENSION WORKER VANCO TROUGH WAS 12, VANCO IVP GIVEN BY CHARGE NURSE.
[2020-09-07] MEDS: AZITHROMYCIN 500 MG in IV D5W 250 ML IV SCH (23:17)
[2020-09-08] VITALS (80 sets, daily range): BP systolic 83–126; BP diastolic 37–86
[2020-09-08] MEDS: CEFEPIME 2 GM in IV D5W 100 ML IV SCH ×3 (04:20→20:12)
[2020-09-08 05:09] LABS: BASOPHILS % (AUTO) 0.2 % (0.0-2.0); EOSINOPHILS % (AUTO) 0.1 % (0.0-6.0); HEMATOCRIT 34 % (39-51); LYMPHOCYTES # (AUTO) 0.8 /CMM (0.8-4.8); LYMPHOCYTES % (AUTO) 8.1 % (20.0-44.0); MEAN CORPUSCULAR HGB CONC 33 g/dl (31.0-36.0); MEAN CORPUSCULAR VOLUME 94 fL (80-96); MONOCYTES # (AUTO) 1.2 /CMM (0.1-1.30); MONOCYTES % (AUTO) 11.3 % (2.0-12.0); NEUTROPHILS # (AUTO) 8.4 /CMM (1.8-8.9); NEUTROPHILS % (AUTO) 80.3 % (43.0-81.0); PLATELET COUNT (AUTO) 233 /CMM (150-450); RED BLOOD CELL COUNT(AUTO) 3.59 MIL/uL (4.5-6.0); WHITE BLOOD COUNT (AUTO) 10.4 K/uL (4.3-11.0)
[2020-09-08 05:27] LABS: CALCIUM, SERUM 7.4 mg/dL (8.5-10.1); CREATININE 1.1 mg/dL (0.6-1.3); PHOSPHORUS 3.5 mg/dL (2.5-4.9); POTASSIUM 4.1 mmol/L (3.5-5.1)
[2020-09-08] MEDS: FENTANYL CITRAT IV 2,500 MCG in IV NS 0.9% 200 ML IV PRN ×2 (06:37→17:06)
[2020-09-08] MEDS: LORAZEPAM INJ 2 MG/ML VIAL IVP PRN ×3 (07:36→14:10)
--- NOTE | 2020-09-08 07:36 | NUR ---
rn notes patient awake trying to remove tubing, administered ativan 1 mg/ml iv push. p-121, bp 99/58. will monitoring.
--- NOTE | 2020-09-08 08:53 | NUR ---
agricultural engineering technician notes administered ativan 1 mg /ml iv push for anxiety, trying to remove tubing. v/s wnl
[2020-09-08] MEDS: ASCORBIC ACID 500 MG TABLET PO SCH (09:07)
[2020-09-08] MEDS: THIAMINE HCL 100 MG TABLET PO SCH (09:07)
[2020-09-08] MEDS: DEXAMETHASONE SOD PHOSPHATE 10 MG/ML VIAL IV SCH (09:07)
[2020-09-08] MEDS: CHOLECALCIFEROL 1,000 UNIT TABLET (VIT D3) PO SCH (09:07)
[2020-09-08] MEDS: ZINC SULFATE 220 MG CAPSULE PO SCH (09:07)
[2020-09-08] MEDS: ENOXAPARIN SODIUM 40 MG/0.4 ML DISP.SYRIN SQ SCH ×2 (09:10→20:14)
[2020-09-08] MEDS: MIDAZOLAM HCL 100 MG in IV NS 0.9% 80 ML IV PRN ×2 (09:39→23:43)
[2020-09-08] MEDS: JEVITY 1.2 CAL 1,000 ML BOTTLE GT PRN (14:09)
--- NOTE | 2020-09-08 14:09 | NUR ---
rn notes administered ativan for agitation 1 mg/ml iv push prn .
[2020-09-08] MEDS: PROPOFOL 100 ML IV PRN ×2 (15:47→18:03)
[2020-09-08] MEDS: VANCOMYCIN 1 GM in IV D5W 250 ML IV SCH (16:23)
--- NOTE | 2020-09-08 18:30 | NUR ---
rn notes patient stable sedated, pm care dome, infusing Diprivan 65 mcg, , fentanyl 3 mcg, versed 7 mcg at this time, patient has no acute respiratory distress, griggs draining yellow output, assist turn and reposition q 2hr, OGT intact running feeding on 50 cc/hr intact, keep hob elevated for aspiration precaution. endorsed oncoming nurse follow plan of care.
[2020-09-09] VITALS (94 sets, daily range): BP systolic 62–121; BP diastolic 39–86
[2020-09-09] MEDS: PROPOFOL 100 ML IV PRN (00:34)
--- NOTE | 2020-09-09 03:30 | NUR ---
FORM GRADER OPERATOR NOTES PATIENT VERY SEDATED, DIPRIVAN DRIP TITRATED OFF PER PROTOCOL.
[2020-09-09 04:58] LABS: CALCIUM, SERUM 7.5 mg/dL (8.5-10.1); CREATININE 0.9 mg/dL (0.6-1.3); POTASSIUM 4.5 mmol/L (3.5-5.1)
[2020-09-09] MEDS ORDERED: NOREPINEPHRINE 4 MG/4 ML AMPUL IV ONE (05:03)
[2020-09-09] MEDS: CEFEPIME 2 GM in IV D5W 100 ML IV SCH ×3 (05:03→20:30)
[2020-09-09] MEDS: NOREPINEPHRINE 8 MG in IV NS 0.9% 242 ML IV PRN ×2 (05:18→15:04)
--- NOTE | 2020-09-09 05:18 | NUR ---
UNDERWEAR CUTTER NOTES LEVOPHED DRIP RESTARTED @ 0518 FOR PERSISTENT HYPOTENSION
[2020-09-09 06:03] LABS: ABG BASE EXCESS 0.6 mmol/L; ABG OXYGEN SATURATION 82.1 % (92.0-98.5); ABG PCO2 38.2 mmHg (35.0-45.0); ABG PO2 46.2 mmHg (75.0-100.0); AaDO2 231.2 mmHg; COHb 0.6 % (0.5-1.5); MetHb 0.3 % (0.0-1.5); O2Hb 81.4 % (94.0-97.0); PEEP,BG 5 cm H2O; SITE, ABG Right Radial; VENT MODE, BG AC 26 450 45% +5; VT, ABG 450 mL
[2020-09-09] MEDS: FENTANYL CITRAT IV 2,500 MCG in IV NS 0.9% 200 ML IV PRN ×2 (06:17→11:03)
--- NOTE | 2020-09-09 07:10 | NUR ---
RN INITIAL NOTES RECEIVED PT INTUBATED, ON VENT. HOB ELEVATED. OG TUBE IN PLACE. TOLERATING TUBE FEEDING WELL. SERINA PICC IN PLACE. PT ON LEVOPHED, FENTANYL AND VERSED DRIP. WILL TITRATE ACCORDINGLY. ARREGUIN IN PLACE. NO HEMATURIA NOTED. BLE ELEVATED. WILL CLOSELY MONITOR
--- NOTE | 2020-09-09 07:53 | NUR ---
PT. RECEIVED ON VENT SUPPORT VIA ET TUBE WITH PARAMETERS BELOW: AC 26 VT 450ML FIO2 45% PEEP +5 RN AWARE ON ABOVE SETTINGS. Addendum: 09/09/20 at 0755 by LALO CASTILLO RT Amended: Links added.
[2020-09-09 08:41] LABS: ABG OXYGEN SATURATION 89.2 % (92.0-98.5); ABG PCO2 37.1 mmHg (35.0-45.0); ABG PH 7.446 (7.350-7.450); ABG PO2 55.1 mmHg (75.0-100.0); AaDO2 223.6 mmHg; COHb 0.5 % (0.5-1.5); MetHb 0.3 % (0.0-1.5); O2Hb 88.5 % (94.0-97.0); PEEP,BG 5 cm H2O; SITE, ABG Right Radial; VT, ABG 450 mL
--- NOTE | 2020-09-09 08:48 | NUR ---
vent changes below per dr. paredes: peep +8 Addendum: 09/09/20 at 0849 by LALO CASTILLO RT Amended: Links added.
[2020-09-09] MEDS: CHOLECALCIFEROL 1,000 UNIT TABLET (VIT D3) PO SCH (09:03)
[2020-09-09] MEDS: DEXAMETHASONE SOD PHOSPHATE 10 MG/ML VIAL IV SCH (09:03)
[2020-09-09] MEDS: ASCORBIC ACID 500 MG TABLET PO SCH (09:03)
[2020-09-09] MEDS: ZINC SULFATE 220 MG CAPSULE PO SCH (09:03)
[2020-09-09] MEDS: THIAMINE HCL 100 MG TABLET PO SCH (09:03)
[2020-09-09] MEDS: ENOXAPARIN SODIUM 40 MG/0.4 ML DISP.SYRIN SQ SCH ×2 (09:35→20:31)
[2020-09-09] MEDS: MIDAZOLAM HCL 100 MG in IV NS 0.9% 80 ML IV PRN (11:02)
[2020-09-09] MEDS: JEVITY 1.2 CAL 1,000 ML BOTTLE GT PRN (11:56)
--- NOTE | 2020-09-09 18:34 | NUR ---
RN CLOSING NOTES NO SIGNIFICANT CHANGE NOTED. VENT SETTINGS ADJUSTED. REMAINS ON LEVOPHED, VERSED AND FENTANYL DRIP. TITRATED ACCORDINGLY. TOLERATING TUBE FEEDING WELL. KEPT CLEAN AND DRY. REPOSITIONING WHEN ABLE DUE TO ISOLATION. WILL ENDORSE FOR CONTINUITY OF CARE.
[2020-09-09] MEDS: LORAZEPAM INJ 2 MG/ML VIAL IVP PRN (18:59)
[2020-09-09] MEDS: ACETAMINOPHEN 325 MG TABLET PO PRN (19:17)
--- NOTE | 2020-09-09 19:17 | NUR ---
FURNACE BUILDER NOTES PATIENT CURRENTLY ON LEVOPHED DRIP FOR BP SUPPORT, HR UP TO 140s-150s. MARTHA MINOR NOTIFIED, WITH ORDER TO CHANGE PRESSOR SUPPORT TO NEOSYNEPHRINE DRIP. ATIVAN IV ADMINISTERED BY DAY NURSE, WILL TITRATE PRESSOR ACCORDINGLY AND SWITCH TO NEOSYNEPHRINE WHEN MED DELIVERED FROM PHARMACY
[2020-09-09] MEDS: PHENYLEPHRINE 50 MG in IV NS 0.9% 245 ML IV PRN ×2 (19:46→23:49)
--- NOTE | 2020-09-09 20:00 | NUR ---
NON DESTRUCTIVE TESTING SCIENTIST NOTES TEMP 101.3. TYLENOL ADMINISTERED
--- NOTE | 2020-09-09 20:11 | NUR ---
RT NOTE PT INTUBATED WITH 7.5 @ 25 CM LEFT LIP LINE. MOVED ET TUBE TO MID LIP. CUFF INFLATED. AMBU BAG @ HOB. VENT PLUGGED TO RED OUTLET. ALARMS ON AND AUDIBLE. SX DONE, SMALL THICK HEARD SECRETIONS NOTED. PT RECEIVING ADEQUATE VOLUMES. NO DISTRESS NOTED AT THIS TIME. PT NOTED WITH HIGH HR, RN WIN AWARE. WILL CONTINUE TO MONITOR CLOSELY. Addendum: 09/09/20 at 2013 by HILARY MCCULLOUGH RT Amended: Links added.
--- NOTE | 2020-09-09 21:40 | NUR ---
LINSEED OIL PRESS TENDER NOTES PATIENT NOTED WITH LARGE BM, BLACK, TARRY, FOUL SMELLING. NESOSYNEPHRINE DRIP TITRATED TO MAX RATE, SBP STILL IN THE 70s. DR MARTHA MINOR NOTIFIED, WITH NEW ORDERS: GIVE 1 LITER BOLUS; STAT CXR; STAT CBC; SEND STOOL OB. ORDERS READ BACK FOR CLARIFICATION, WILL CARRY OUT NEW ORDERS AND MONITOR CLOSELY
[2020-09-09] MEDS ORDERED: IV NS 0.9% 1,000 ML IV ONE ×2 (22:00→23:00)
[2020-09-09 22:30] LABS: BASOPHILS # (AUTO) 0.2 /CMM (0.0-0.2); BASOPHILS % (AUTO) 0.4 % (0.0-2.0); EOSINOPHILS % (AUTO) 1.1 % (0.0-6.0); HEMATOCRIT 22 % (39-51); LYMPHOCYTES # (AUTO) 7.1 /CMM (0.8-4.8); LYMPHOCYTES % (AUTO) 18.8 % (20.0-44.0); MEAN CORPUSCULAR HGB CONC 31 g/dl (31.0-36.0); MEAN CORPUSCULAR VOLUME 97 fL (80-96); MONOCYTES # (AUTO) 4.5 /CMM (0.1-1.30); MONOCYTES % (AUTO) 11.8 % (2.0-12.0); NEUTROPHILS # (AUTO) 25.7 /CMM (1.8-8.9); NEUTROPHILS % (AUTO) 67.9 % (43.0-81.0); PLATELET COUNT (AUTO) 343 /CMM (150-450); RED BLOOD CELL COUNT(AUTO) 2.22 MIL/uL (4.5-6.0)
[2020-09-09 22:36] LABS: HEMOGLOBIN 6.7 g/dL (13.5-17.5); WHITE BLOOD COUNT (AUTO) 37.9 K/uL (4.3-11.0)
--- NOTE | 2020-09-09 22:50 | NUR ---
SHEETER HELPER NOTES RECEIVED CALL FROM LAB REGARDING CRITICAL RESULTS, H/H 6.7/, WBC 37.9. DR MARTHA MINOR NOTIFIED REGARDING LAB RESULTS, WITH NEW ORDER TO TRANSFUSE 4 UNITS PRBC, AND 2 UNITS FFP. ADDITIONAL ORDER OBTAINED FOR PEPCID IV 20MG BID, FIRST DOSE NOW. ALL ORDERS READ BACK FOR CLARIFICATION. WILL CARRY OUT NEW ORDERS
[2020-09-09 23:12] LABS: BAND % (MANUAL) 20 % (0.0-5.0); LYMPHOCYTES % (MANUAL) 8 % (16-48); MONOCYTES % (MANUAL) 15 % (0-11.0); NEUTROPHILS % (MANUAL) 57 (42-76)
[2020-09-09] MEDS: FAMOTIDINE/PF INJ 20 MG/2 ML VIAL IV SCH (23:17)
[2020-09-09 23:22] LABS: OCCULT BLOOD STOOL POSITIVE (NEGATIVE)
[2020-09-10] VITALS (122 sets, daily range): BP systolic 53–180; BP diastolic 29–112
[2020-09-10] MEDS: MIDAZOLAM HCL 100 MG in IV NS 0.9% 80 ML IV PRN ×3 (00:27→23:41)
[2020-09-10] MEDS: FENTANYL CITRAT IV 2,500 MCG in IV NS 0.9% 200 ML IV PRN ×3 (00:28→23:42)
[2020-09-10] MEDS: PHENYLEPHRINE 50 MG in IV NS 0.9% 245 ML IV PRN ×4 (03:33→22:58)
[2020-09-10] MEDS: ACETAMINOPHEN 325 MG TABLET PO PRN ×2 (04:11→20:30)
[2020-09-10] MEDS: CEFEPIME 2 GM in IV D5W 100 ML IV SCH ×3 (05:26→20:01)
[2020-09-10 05:34] LABS: ABG BASE EXCESS -0.1 mmol/L; ABG OXYGEN SATURATION 85.3 % (92.0-98.5); ABG PCO2 45.7 mmHg (35.0-45.0); ABG PH 7.363 (7.350-7.450); ABG PO2 51.5 mmHg (75.0-100.0); AaDO2 217.4 mmHg; MetHb 0.1 % (0.0-1.5); O2Hb 84.4 % (94.0-97.0); PEEP,BG 8 cm H2O; SITE, ABG Right Radial; VENT MODE, BG AC 26 450 45% +8; VT, ABG 450 mL
--- NOTE | 2020-09-10 08:00 | NUR ---
RN NOTES RECEIVED PATIENT GETTING SECOND BLOOD TRANSFUSION AT THIS TIME BECAUSE OF H/H LOW , CURRENTLY ON NORSYNEPHRINE AT 1.4MCG DRIP FOR BP SUPPORT, HR UP TO 99, VERSED 7 MCG, AND FENTANYL 2MG, WILL TITRATE PRESSOR ACCORDINGLY PROTOCOL, STOP OGT FEEDING BECAUSE OF GI BLEEDING, RECTAL TUBE SHOWS DARK STOOL, ARREGUIN DRAINING YELLOW OUTPUT, KEEP HOB ELEVATED, ASSIST TURN AND REPOSITION Q2 HR. WILL FOLLOW UP.
--- NOTE | 2020-09-10 08:49 | NUR ---
vent changes below per dr. paredes: fio2 50% peep +10 rn notified on vent changes Addendum: 09/10/20 at 0850 by LALO CASTILLO RT Amended: Links added.
--- NOTE | 2020-09-10 08:53 | NUR ---
rn notes second blood transfusion finished at this time. patient stable no acute respiratory distress, v/s taken bp 139/93, r-26, p-70, t-88.2. per md recheck h/h in one hr. order taken and carried out.
[2020-09-10] MEDS: FAMOTIDINE/PF INJ 20 MG/2 ML VIAL IV SCH (09:41)
[2020-09-10] MEDS: DEXAMETHASONE SOD PHOSPHATE 10 MG/ML VIAL IV SCH (09:41)
[2020-09-10] MEDS: ZINC SULFATE 220 MG CAPSULE PO SCH (09:41)
[2020-09-10] MEDS: CHOLECALCIFEROL 1,000 UNIT TABLET (VIT D3) PO SCH (09:41)
[2020-09-10] MEDS: THIAMINE HCL 100 MG TABLET PO SCH (09:42)
[2020-09-10] MEDS: ASCORBIC ACID 500 MG TABLET PO SCH (09:42)
[2020-09-10 10:51] LABS: HEMOGLOBIN 8.8 g/dL (13.5-17.5)
--- NOTE | 2020-09-10 11:28 | NUR ---
RN NOTES CALLED COUSIN NAME MALIHA PHONE # [phone] AND GET TO VERBAL CONSENT FOR EGD, CO SIGN WITH CO-WORKER CHRISTIANO.
[2020-09-10 11:51] LABS: CALCIUM, SERUM 7.5 mg/dL (8.5-10.1); CREATININE 1.4 mg/dL (0.6-1.3); POTASSIUM 4.6 mmol/L (3.5-5.1)
--- NOTE | 2020-09-10 12:00 | NUR ---
RN NOTES NOTIFIED H/H RESULT .05/[address] FRIEDMAN AND GET TO ORDER NO TRANSFUSION AT THIS TIME, REPIT H/H AFTER 4 HR. ORDER TAKEN AND CARRIED OUT.
--- NOTE | 2020-09-10 13:12 | NUR ---
RN NOTES PATIENT GETTING EGD AT BEDSIDE PER Dr JUNG AT THIS TIME.
[2020-09-10] MEDS ORDERED: EPINEPHRINE (1:10,000) SYRINGE 1 MG/10 ML DISP.SYRIN ONE (13:29)
--- NOTE | 2020-09-10 13:36 | NUR ---
RN NOTES PER GI DR GR EDG [id number] HAS 3laege deep ulcers with stigmata or recent bleeding that is old. hold anticoagulant therapy for 24 to 36 hr and then restart heparin drip the hypercoagulable state associated with covid, and Protonix 80 mg daily.
[2020-09-10] MEDS ORDERED: VANCOMYCIN 1 GM in IV D5W 250ml IV SCH (14:00)
[2020-09-10] MEDS: PANTOPRAZOLE 40 MG VIAL IV SCH ×2 (14:27→20:01)
[2020-09-10 16:25] LABS: HEMOGLOBIN 8.1 g/dL (13.5-17.5)
--- NOTE | 2020-09-10 17:21 | NUR ---
rn notes patient very sensitive with norsynephrine BP jumping up, and down, rate is now 1.3 mcg. will monitoring.
--- NOTE | 2020-09-10 18:41 | NUR ---
RN NOTES PM CARE DONE,SUCTION, DAILY CARE DONE, OGT INTACT, PATIENT TOLERATING EET SEATING WELL, PATIENT ON NORSYNEPHRINE 1.3 MCG, FENTANYL 2 MCG, AND VERSED 7 MG RIGHT PICC LINE, GET TO ORDER FROM Dr FRIEDMAN AFTER INFORMING H/H 8.10/07. PATIENT NEED ONE MORE UNIT OF RBC TRANSFUSION. WILL ENDORSED ONCOMING NURSE FOLLOW PLAN OF CARE.
--- NOTE | 2020-09-10 19:30 | NUR ---
VEHICLE OPERATOR TECHNICIAN NOTES RECEIVED PATIENT IN BED, SEDATED ON FENTANYL AND VERSED DRIP, ORALLY INTUBATED ON MECHANICAL VENTILATION. TELE MONITOR READS SINUS RHYTHM HR 80s. RECTAL TUBE DRAINING DARK LIQUID STOOL/BLOOD, PENDING 1 UNIT OF PRBC TRANSFUSION, WILL COORDINATE WITH LAB ONCE BLOOD IS READY. SERINA PICC PATENT AND INTACT, RUNNING FENTANYL DRIP @ 2MCG/KG/HR OR 15.9 ML/HR AND VERSED DRIP @ 7MG/HR. ARREGUIN CATHETER DRAINING CLOUDY YELLOW URINE VIA GRAVITY. WILL MONITOR CLOSELY AND OBSERVE ISOLATION PRECAUTIONS FOR COVID-19
--- NOTE | 2020-09-10 20:55 | NUR ---
RT pt received on mechanical vent with current settings. orally intubated, ett size 7.5, 25@lip. ett secure. vent plugged in to red outlet. ambu bag at [facility]. small, thick secretions suctioned via ett. alarms on and audible. no sob, no resp distress. will continue to monitor.
[2020-09-11] VITALS (68 sets, daily range): BP systolic 94–143; BP diastolic 57–102
--- NOTE | 2020-09-11 00:03 | NUR ---
WOOD MECHANIST NOTES BLOOD TRANSFUSION PRBC X1 COMPLETED, NO SIGN AND SYMPTOM OF BLOOD TRANSFUSION REACTION NOTED, NOW ABLE TO TITRATE DOWN NEOSYNEPHRINE DRIP
[2020-09-11 04:59] LABS: BASOPHILS # (AUTO) 0.1 /CMM (0.0-0.2); BASOPHILS % (AUTO) 0.3 % (0.0-2.0); EOSINOPHILS % (AUTO) 0.3 % (0.0-6.0); HEMATOCRIT 30 % (39-51); HEMOGLOBIN 9.8 g/dL (13.5-17.5); LYMPHOCYTES # (AUTO) 2.5 /CMM (0.8-4.8); LYMPHOCYTES % (AUTO) 10.2 % (20.0-44.0); MEAN CORPUSCULAR HGB CONC 33 g/dl (31.0-36.0); MEAN CORPUSCULAR VOLUME 91 fL (80-96); MONOCYTES # (AUTO) 2.6 /CMM (0.1-1.30); MONOCYTES % (AUTO) 10.7 % (2.0-12.0); NEUTROPHILS # (AUTO) 19.3 /CMM (1.8-8.9); NEUTROPHILS % (AUTO) 78.5 % (43.0-81.0); PLATELET COUNT (AUTO) 201 /CMM (150-450); RED BLOOD CELL COUNT(AUTO) 3.28 MIL/uL (4.5-6.0); WHITE BLOOD COUNT (AUTO) 24.5 K/uL (4.3-11.0)
[2020-09-11 05:06] LABS: ABG BASE EXCESS 0.2 mmol/L; ABG OXYGEN SATURATION 95.9 % (92.0-98.5); ABG PH 7.451 (7.350-7.450); ABG PO2 79.3 mmHg (75.0-100.0); AaDO2 237.8 mmHg; COHb 0.6 % (0.5-1.5); MetHb 0.1 % (0.0-1.5); O2Hb 95.2 % (94.0-97.0); SITE, ABG Right Radial; VENT MODE, BG AC 26 450 50% +10
[2020-09-11 05:15] LABS: CALCIUM, SERUM 7.7 mg/dL (8.5-10.1); CREATININE 1.3 mg/dL (0.6-1.3); MAGNESIUM 2.6 mg/dL (1.8-2.4); PHOSPHORUS 2.9 mg/dL (2.5-4.9); POTASSIUM 4.9 mmol/L (3.5-5.1)
[2020-09-11] MEDS: CEFEPIME 2 GM in IV D5W 100 ML IV SCH ×3 (05:40→21:40)
--- NOTE | 2020-09-11 06:00 | NUR ---
SUPERVISOR WRAPPING ROOM CLOSING NOTES PATIENT TOLERATED BLOOD TRANSFUSION PRBC X1 WELL. NO ADVERSE TRANSFUSION REACTION NOTED. AFTER PRBC TRANSFUSION, NEOSYNEPHRINE DRIP TITRATED DOWN TO 0.5MCG/KG/MIN. WILL ENDORSE THE PATIENT TO THE AM SHIFT NURSE FOR COMFORT
--- NOTE | 2020-09-11 07:15 | NUR ---
RN INITIAL NOTES RECEIVED PT INTUBATED, ON VENT. HOB ELEVATED. OG TUBE IN PLACE, CLAMPED. SERINA PICC IN PLACE. PT ON SILKE, FENTANYL AND VERSED DRIP. WILL TITRATE ACCORDINGLY. ARREGUIN AND FLEXISEAL IN PLACE. BLE ELEVATED. WILL CLOSELY MONITOR
[2020-09-11] MEDS: ASCORBIC ACID 500 MG TABLET PO SCH (08:22)
[2020-09-11] MEDS: THIAMINE HCL 100 MG TABLET PO SCH (08:22)
[2020-09-11] MEDS: PANTOPRAZOLE 40 MG VIAL IV SCH ×2 (08:22→21:41)
[2020-09-11] MEDS: DEXAMETHASONE SOD PHOSPHATE 10 MG/ML VIAL IV SCH (08:22)
[2020-09-11] MEDS: ZINC SULFATE 220 MG CAPSULE PO SCH (08:23)
[2020-09-11] MEDS: CHOLECALCIFEROL 1,000 UNIT TABLET (VIT D3) PO SCH (08:23)
[2020-09-11] MEDS: MIDAZOLAM HCL 100 MG in IV NS 0.9% 80 ML IV PRN ×2 (09:26→23:52)
[2020-09-11] MEDS: FENTANYL CITRAT IV 2,500 MCG in IV NS 0.9% 200 ML IV PRN ×2 (09:26→21:09)
[2020-09-11] MEDS: HEPARIN INFUSION/D5W 500 ML IV PRN (18:32)
--- NOTE | 2020-09-11 18:43 | NUR ---
RN CLOSING NOTES NO SIGNIIFICANT CHANGE NOTED. PT REMAINS INTUBATED, ON VENT. NO RESPIRATORY DISTRESS NOTED. KEPT COMFORTABLE. PT REMAINS ON FENTANYL AND VERSED DRIP. SILKE OFF AT 0900. STARTED ON HEPARIN DRIP PER GILBERT MINOR. PROTOCOL FOLLOWED. ARREGUIN IN PLACE. KEPT CLEAN AND DRY. REPOSITIONING WHEN ABLE DUE TO ISOLATION. WILL ENDORSE FOR CONTINUITY OF CARE
--- NOTE | 2020-09-11 20:25 | NUR ---
PT REC'D ORALLY INTUBATED VIA ETT 7.5 SECURED @ 25 CM [facility] WITH THE SETTINGS OF AC 26, 450,50%,PEEP 8. NO RESPIRATORY DISTRESS NOTED AT THIS TIME. ALARMS ARE SET AND AUDIBLE. VENT PLUGGED INTO RED OUTLET. AMBU BAG@ BEDSIDE. WILL CONTINUE TO MONITOR T/O THE SHIFT.
--- NOTE | 2020-09-11 22:00 | NUR ---
SYSTEM ARCHITECT.. RECEIVED THE PT REST ON THE BED. ORALLY INTUBATED. SEDATED WITH FENTANYL AND VERSED. ETT 7.5,LIP 25,AC 26,TV 450,FIO2 50%,PEEP 8. SAT 97%. NO ACUTE DISTRESS NOTED. REGIONAL AIRLINE PILOT SHOWING NSR.IV RT UPPER ARM PICC LINE FENTANYL 2MCG/KG/MIN,VERSED. 7MG,HEPARIN 1450U/H. FC PATENT. OGT CLAMPED. HOB ELEVATED. ORESTES SOFT WRIST RESTRAINT CHECKED AND RELEASED. NO INJURY OR REDNESS NOTED, ORESTES UPPER AND LOWER EXTREMITY SWELLING +2. AFEBRILE. RECTAL TUBE INTACT, WILL CONTINUE TO MONITOR VITALS.
[2020-09-12] VITALS (39 sets, daily range): BP systolic 95–120; BP diastolic 55–83
[2020-09-12 05:29] LABS: BASOPHILS % (AUTO) 0.3 % (0.0-2.0); EOSINOPHILS % (AUTO) 0.1 % (0.0-6.0); HEMATOCRIT 27 % (39-51); HEMOGLOBIN 8.9 g/dL (13.5-17.5); LYMPHOCYTES % (AUTO) 12.8 % (20.0-44.0); MEAN CORPUSCULAR HGB CONC 34 g/dl (31.0-36.0); MEAN CORPUSCULAR VOLUME 91 fL (80-96); MONOCYTES # (AUTO) 1.5 /CMM (0.1-1.30); MONOCYTES % (AUTO) 9.2 % (2.0-12.0); NEUTROPHILS # (AUTO) 12.3 /CMM (1.8-8.9); NEUTROPHILS % (AUTO) 77.6 % (43.0-81.0); PLATELET COUNT (AUTO) 149 /CMM (150-450); RED BLOOD CELL COUNT(AUTO) 2.92 MIL/uL (4.5-6.0); WHITE BLOOD COUNT (AUTO) 15.8 K/uL (4.3-11.0)
[2020-09-12 05:43] LABS: CALCIUM, SERUM 7.5 mg/dL (8.5-10.1); CREATININE 1.1 mg/dL (0.6-1.3); MAGNESIUM 2.5 mg/dL (1.8-2.4); PHOSPHORUS 3.2 mg/dL (2.5-4.9); POTASSIUM 4.5 mmol/L (3.5-5.1)
--- NOTE | 2020-09-12 05:44 | NUR ---
TERMITE CONTROL TECHNICIAN, AM CARE GIVEN. REMAINING SAME VENT SETTING TOLERATED WELL. SAT 98%. NO ACUTE DISTRESS NOTED. AFEBRILE. ORESTES SOFT WRIST RESTRAINT CHECKED AND RELEASED. NO INJURY OR REDNESS NOTED. FC PATENT. URINE DRAINING. OGT CLAMPED. TURN AND REPOSITION Q2H. WILL CONTINUE TO MONITOR VITALS.
[2020-09-12 05:51] LABS: ABG BASE EXCESS 0.5 mmol/L; ABG OXYGEN SATURATION 96.9 % (92.0-98.5); ABG PCO2 29.2 mmHg (35.0-45.0); ABG PH 7.513 (7.350-7.450); ABG PO2 89.8 mmHg (75.0-100.0); AaDO2 233.9 mmHg; COHb 0.5 % (0.5-1.5); MetHb 0.3 % (0.0-1.5); O2Hb 96.1 % (94.0-97.0); PEEP,BG 8 cm H2O; SITE, ABG Right Radial; VT, ABG 450 mL
[2020-09-12] MEDS: CEFEPIME 2 GM in IV D5W 100 ML IV SCH ×3 (05:57→22:35)
[2020-09-12] MEDS: THIAMINE HCL 100 MG TABLET PO SCH (08:09)
[2020-09-12] MEDS: ASCORBIC ACID 500 MG TABLET PO SCH (08:09)
[2020-09-12] MEDS: ZINC SULFATE 220 MG CAPSULE PO SCH (08:10)
[2020-09-12] MEDS: CHOLECALCIFEROL 1,000 UNIT TABLET (VIT D3) PO SCH (08:10)
[2020-09-12] MEDS: PANTOPRAZOLE 40 MG VIAL IV SCH ×2 (09:16→22:36)
[2020-09-12] MEDS: DEXAMETHASONE SOD PHOSPHATE 10 MG/ML VIAL IV SCH (09:17)
[2020-09-12] MEDS: HEPARIN INFUSION/D5W 500 ML IV PRN (09:32)
[2020-09-12] MEDS: MIDAZOLAM HCL 100 MG in IV NS 0.9% 80 ML IV PRN ×2 (10:03→22:43)
[2020-09-12] MEDS: FENTANYL CITRAT IV 2,500 MCG in IV NS 0.9% 200 ML IV PRN ×2 (10:04→22:40)
[2020-09-12] MEDS: JEVITY 1.2 CAL 1,000 ML BOTTLE GT PRN (16:35)
--- NOTE | 2020-09-12 18:48 | NUR ---
RN CLOSING NOTES NO SIGNIIFICANT CHANGE NOTED. PT REMAINS INTUBATED, ON VENT. NO RESPIRATORY DISTRESS NOTED. KEPT COMFORTABLE. PT REMAINS ON FENTANYL AND VERSED DRIP. REMAINS ON HEPARIN DRIP. NO ACTIVE SIGNS OF BLEEDING NOTED. ARREGUIN IN PLACE. KEPT CLEAN AND DRY. REPOSITIONING WHEN ABLE DUE TO ISOLATION. WILL ENDORSE FOR CONTINUITY OF CARE
--- NOTE | 2020-09-12 20:00 | NUR ---
PROGRAMMER. INITIAL ASSESSMENT. RECEIVED THE PT REST ON THE BED. ORALLY INTUBATED. SEDATED WITH VERSED.AND FENTANYL, HEPARIN DRIP RUNNING PER PROTOCOL.FC PATENT. ORESTES SOFT WRIST RESTRAINT CHECKED AND RELEASED, NO INJURY OR REDNESS NOTED. WILL CONTINUE TO MONITOR.
--- NOTE | 2020-09-12 21:26 | NUR ---
RT NOTE PT RECEIVED INTUBATED ON MECHANICAL VENTILATION. CUFF INFLATED. SX DONE, MODERATE THICK BLOODY RED SECRETIONS NOTED. RN DAMARIS AWARE. VENT PLUGGED TO RED OUTLET. ALARMS ON AND AUDIBLE. NO RESPIRATORY DISTRESS NOTED. WILL CONTINUE TO MONITOR CLOSELY. Addendum: 09/12/20 at 2132 by HILARY MCCULLOUGH RT Amended: Links added.
[2020-09-13] VITALS (68 sets, daily range): BP systolic 79–135; BP diastolic 28–96
[2020-09-13] MEDS: HEPARIN INFUSION/D5W 500 ML IV PRN (00:03)
[2020-09-13] MEDS: CEFEPIME 2 GM in IV D5W 100 ML IV SCH ×2 (04:35→12:15)
[2020-09-13 04:37] LABS: BASOPHILS % (AUTO) 0.2 % (0.0-2.0); EOSINOPHILS % (AUTO) 0.2 % (0.0-6.0); HEMATOCRIT 27 % (39-51); MEAN CORPUSCULAR HGB CONC 33 g/dl (31.0-36.0); MEAN CORPUSCULAR VOLUME 93 fL (80-96); MONOCYTES # (AUTO) 1.4 /CMM (0.1-1.30); MONOCYTES % (AUTO) 9.9 % (2.0-12.0); NEUTROPHILS # (AUTO) 10.8 /CMM (1.8-8.9); NEUTROPHILS % (AUTO) 75.7 % (43.0-81.0); PLATELET COUNT (AUTO) 174 /CMM (150-450); RED BLOOD CELL COUNT(AUTO) 2.93 MIL/uL (4.5-6.0); WHITE BLOOD COUNT (AUTO) 14.2 K/uL (4.3-11.0)
[2020-09-13 04:48] LABS: CALCIUM, SERUM 7.4 mg/dL (8.5-10.1); CREATININE 1.1 mg/dL (0.6-1.3); MAGNESIUM 2.4 mg/dL (1.8-2.4); POTASSIUM 4.1 mmol/L (3.5-5.1)
--- NOTE | 2020-09-13 04:59 | NUR ---
director of agriculture. am care, oral care, bed will c bath given. linen changed, remaining same vents setting tolerated well. yamil soft wrist restraint checked and released. no injury or redness noted. ogt feeding tolerated well. fc patent. urine draining. flexa seal intact. will continue to monitor vitals
--- NOTE | 2020-09-13 06:45 | NUR ---
aviculturist. ptt 113.3, heparin drip hold for 1 hour. following protocol
[2020-09-13] MEDS: THIAMINE HCL 100 MG TABLET PO SCH (09:14)
[2020-09-13] MEDS: ZINC SULFATE 220 MG CAPSULE PO SCH (09:14)
[2020-09-13] MEDS: ASCORBIC ACID 500 MG TABLET PO SCH (09:14)
[2020-09-13] MEDS: PANTOPRAZOLE 40 MG VIAL IV SCH ×2 (09:14→21:03)
[2020-09-13] MEDS: CHOLECALCIFEROL 1,000 UNIT TABLET (VIT D3) PO SCH (09:14)
[2020-09-13] MEDS: PROPOFOL 100 ML IV PRN (09:27)
[2020-09-13] MEDS: FENTANYL CITRAT IV 2,500 MCG in IV NS 0.9% 200 ML IV PRN ×2 (10:36→21:07)
[2020-09-13] MEDS: MIDAZOLAM HCL 100 MG in IV NS 0.9% 80 ML IV PRN ×2 (10:41→21:05)
[2020-09-13] MEDS: JEVITY 1.2 CAL 1,000 ML BOTTLE GT PRN (17:42)
[2020-09-13] MEDS ORDERED: AMOXICILLIN TRIHYDRATE 500 MG CAPSULE NG SCH (21:00)
[2020-09-13] MEDS: CLARITHROMYCIN 500 MG TABLET GT SCH (22:15)
[2020-09-13] MEDS ORDERED: AMOX /CLAV 250 MG/5 ML BOTTLE ONE (22:15)
[2020-09-13] MEDS: METRONIDAZOLE 500 MG TABLET GT SCH (22:15)
--- NOTE | 2020-09-13 22:41 | NUR ---
MAIL FORWARDING SYSTEM MARKUP CLERK BIAXIN AND AMOXICILLIN NON ADMIN AT THIS TIME THEY ARE NOR AVAILABLE PER Kishan ALLAN OKELYSIA TO START IN AM.
[2020-09-14] VITALS (67 sets, daily range): BP systolic 80–152; BP diastolic 45–99
[2020-09-14] MEDS: PROPOFOL 100 ML IV PRN (02:07)
[2020-09-14] MEDS: HEPARIN INFUSION/D5W 500 ML IV PRN ×2 (02:21→22:32)
--- NOTE | 2020-09-14 04:00 | NUR ---
ADMINISTRATIVE CLERK FIO2 INCREASED TO 50% PT WAS DESTURATING POST SUCTIONING; REMOVED BLOODY MUCUS PLUG. PT NOTED BREATHING FAST. INCREASED PROPOFOL TPP 10 MCG/KG/MIN. CONTINUE TO MONITOR.
[2020-09-14 05:33] LABS: BASOPHILS # (AUTO) 0.1 /CMM (0.0-0.2); BASOPHILS % (AUTO) 0.4 % (0.0-2.0); EOSINOPHILS % (AUTO) 1.4 % (0.0-6.0); HEMATOCRIT 32 % (39-51); HEMOGLOBIN 10.6 g/dL (13.5-17.5); LYMPHOCYTES # (AUTO) 3.5 /CMM (0.8-4.8); LYMPHOCYTES % (AUTO) 23.5 % (20.0-44.0); MEAN CORPUSCULAR HGB CONC 33 g/dl (31.0-36.0); MEAN CORPUSCULAR VOLUME 95 fL (80-96); MONOCYTES # (AUTO) 1.4 /CMM (0.1-1.30); MONOCYTES % (AUTO) 9.6 % (2.0-12.0); NEUTROPHILS # (AUTO) 9.8 /CMM (1.8-8.9); NEUTROPHILS % (AUTO) 65.1 % (43.0-81.0); PLATELET COUNT (AUTO) 193 /CMM (150-450)
[2020-09-14 05:49] LABS: CALCIUM, SERUM 7.8 mg/dL (8.5-10.1); CREATININE 1.2 mg/dL (0.6-1.3); MAGNESIUM 2.3 mg/dL (1.8-2.4); PHOSPHORUS 4.4 mg/dL (2.5-4.9); POTASSIUM 4.5 mmol/L (3.5-5.1)
--- NOTE | 2020-09-14 06:00 | NUR ---
PARAMEDIC INSTRUCTOR PT NOTED TO BE VERY SEDATED W/ LOW BP PROPOFOL TIRATED DOWN PER PROTOCOL. CONTINUE TO MONITOR.
--- NOTE | 2020-09-14 06:30 | NUR ---
HOUSEKEEPING AID PT NOTED TO BE VERY SEDATED W/ LOW BP PROPOFOL TIRATED OFF PER PROTOCOL. CONTINUE TO MONITOR.
--- NOTE | 2020-09-14 07:00 | NUR ---
RN NOTES RECEIVED PT ON BED, INTUBATED, SEDATED , CURRENT VENT SETTING WELL, ON TELE ST HR IN 100'S , ET TUBE CARE AND SUCTIONING DONE, PT IS ON FENTANYL AND VERSED AND DIPRIVAN FOR SEDATION AT THIS TIME, ARREGUIN DRAINING TO GRAVITY, R UPPER ARM PICC LINE SITE CLEAN ,DRY AND INTACT, SR UP x3, CALL LIGHT WITHIN EASY REACH , CONTINUE TO MONITOR .
[2020-09-14] MEDS: FENTANYL CITRAT IV 2,500 MCG in IV NS 0.9% 200 ML IV PRN ×2 (08:33→18:53)
[2020-09-14] MEDS: AMOXICILLIN TRIHYDRATE 250 MG CAPSULE NG SCH ×2 (08:38→21:09)
[2020-09-14] MEDS: ASCORBIC ACID 500 MG TABLET PO SCH (08:38)
[2020-09-14] MEDS: THIAMINE HCL 100 MG TABLET PO SCH (08:39)
[2020-09-14] MEDS: CLARITHROMYCIN 500 MG TABLET GT SCH ×2 (08:39→21:09)
[2020-09-14] MEDS: CHOLECALCIFEROL 1,000 UNIT TABLET (VIT D3) PO SCH (08:39)
[2020-09-14] MEDS: METRONIDAZOLE 500 MG TABLET GT SCH ×2 (08:39→21:09)
[2020-09-14] MEDS: ZINC SULFATE 220 MG CAPSULE PO SCH (08:39)
[2020-09-14] MEDS: PANTOPRAZOLE 40 MG VIAL IV SCH ×2 (08:39→21:08)
[2020-09-14] MEDS: MIDAZOLAM HCL 100 MG in IV NS 0.9% 80 ML IV PRN (12:12)
[2020-09-14] MEDS: NOREPINEPHRINE 8 MG in IV NS 0.9% 242 ML IV PRN (14:28)
[2020-09-14] MEDS: JEVITY 1.2 CAL 1,000 ML BOTTLE GT PRN (16:06)
--- NOTE | 2020-09-14 20:00 | NUR ---
Received patient intubated to mechanical vent on full vent support.Vent settings well tolerated.Sedated on Diprivan gtt at 10 mcg,Fentanyl gtt at 3 mcg and Versed gtt at 6 mg/hr.Patient also on Heparin gtt at 1150 units/hr.VSS.SR. Patient on Levophed gtt for BP support and will titrate accordingly to keep SBP >90.All iv's infusing via SERINA PICC LINE. Site intact.OGT feeding in progress.Placement verified by auscultation and aspiration patent and no residual noted. Maintained HOB elevated.FC to gravity drainage.Turned and repositioned.Patient open eyes to verbal and tactile stimuli.No acute distress noted.Continue monitoring.
[2020-09-15] VITALS (78 sets, daily range): BP systolic 83–157; BP diastolic 43–110
--- NOTE | 2020-09-15 02:00 | NUR ---
Patient VS remains stable.SR/ST low 100's.Bed bath rendered.Kept dry and body lotion applied. Turned and repositioned.Patient responding to verbal and tactile stimuli and follows simple commands.Nods head when asked if he is comfortable.Continue to monitor.
[2020-09-15] MEDS: PROPOFOL 100 ML IV PRN (03:57)
[2020-09-15] MEDS: MIDAZOLAM HCL 100 MG in IV NS 0.9% 80 ML IV PRN (04:06)
[2020-09-15 04:55] LABS: BASOPHILS # (AUTO) 0.1 /CMM (0.0-0.2); BASOPHILS % (AUTO) 0.6 % (0.0-2.0); EOSINOPHILS % (AUTO) 2.3 % (0.0-6.0); HEMATOCRIT 29 % (39-51); HEMOGLOBIN 9.5 g/dL (13.5-17.5); LYMPHOCYTES # (AUTO) 2.5 /CMM (0.8-4.8); LYMPHOCYTES % (AUTO) 20.6 % (20.0-44.0); MEAN CORPUSCULAR HGB CONC 33 g/dl (31.0-36.0); MEAN CORPUSCULAR VOLUME 95 fL (80-96); MONOCYTES # (AUTO) 1.1 /CMM (0.1-1.30); MONOCYTES % (AUTO) 9.4 % (2.0-12.0); NEUTROPHILS % (AUTO) 67.1 % (43.0-81.0); PLATELET COUNT (AUTO) 176 /CMM (150-450); RED BLOOD CELL COUNT(AUTO) 3.04 MIL/uL (4.5-6.0); WHITE BLOOD COUNT (AUTO) 11.9 K/uL (4.3-11.0)
[2020-09-15] MEDS: FENTANYL CITRAT IV 2,500 MCG in IV NS 0.9% 200 ML IV PRN (05:07)
[2020-09-15 05:16] LABS: CALCIUM, SERUM 7.5 mg/dL (8.5-10.1); CREATININE 1.1 mg/dL (0.6-1.3); MAGNESIUM 2.2 mg/dL (1.8-2.4); PHOSPHORUS 4.6 mg/dL (2.5-4.9)
--- NOTE | 2020-09-15 07:22 | NUR ---
Patient resting all iv's infusing well.Tolerating vent settings.Tolerating OGT feeding.VSS.SR. Moderate urine output.No BM noted but passing out gas.Turned and repositioned.Report given to day shift RN for COMFORT.No distress noted.
--- NOTE | 2020-09-15 07:45 | NUR ---
CONTACTED LAB TO DRAW STAT APTT LEVELS, NO ONE RESPONDING X3 PHONE CALLS. WILL TRY AGAIN SHORTLY.
[2020-09-15] MEDS: AMOXICILLIN TRIHYDRATE 250 MG CAPSULE NG SCH ×2 (08:00→21:00)
[2020-09-15] MEDS: ZINC SULFATE 220 MG CAPSULE PO SCH (08:00)
[2020-09-15] MEDS: CLARITHROMYCIN 500 MG TABLET GT SCH ×2 (08:00→21:00)
[2020-09-15] MEDS: PANTOPRAZOLE 40 MG VIAL IV SCH ×2 (08:00→21:39)
[2020-09-15] MEDS: CHOLECALCIFEROL 1,000 UNIT TABLET (VIT D3) PO SCH (08:00)
[2020-09-15] MEDS: THIAMINE HCL 100 MG TABLET PO SCH (08:01)
[2020-09-15] MEDS: ASCORBIC ACID 500 MG TABLET PO SCH (08:01)
[2020-09-15] MEDS: METRONIDAZOLE 500 MG TABLET GT SCH ×2 (08:01→21:00)
[2020-09-15] MEDS: ACETAMINOPHEN 325 MG TABLET PO PRN (08:11)
--- NOTE | 2020-09-15 08:42 | NUR ---
on weaning trial per dr. paredes: simv 4 ps 15 45% fio2 peep +5 Addendum: 09/15/20 at 0849 by LALO CASTILLO RT Amended: Links added.
[2020-09-15] MEDS ORDERED: DC PROPOFOL WHEN EXTUBATED XX PRN (09:00)
--- NOTE | 2020-09-15 09:55 | NUR ---
PTT 47.7, NO CHANGE IN HEPARIN DRIP DOSING PER PROTOCOL
--- NOTE | 2020-09-15 09:56 | NUR ---
CURRENTLY ON SIMV MODE, SATING AT 98%, WILL CONTINUE TO MONITOR PATIENT.
[2020-09-15 10:24] LABS: ABG BASE EXCESS 2.3 mmol/L; ABG PCO2 45.8 mmHg (35.0-45.0); ABG PH 7.397 (7.350-7.450); ABG PO2 84.1 mmHg (75.0-100.0); AaDO2 184.7 mmHg; COHb 0.5 % (0.5-1.5); MetHb 0.2 % (0.0-1.5); O2Hb 95.3 % (94.0-97.0); PEEP,BG 5 cm H2O; SITE, ABG Right Radial; VT, ABG 450 mL
[2020-09-15] MEDS: LORAZEPAM INJ 2 MG/ML VIAL IV PRN ×2 (11:37→18:45)
--- NOTE | 2020-09-15 12:45 | NUR ---
pt is awake and follow commands @ 1245 pt extubated as order and placed into high flow nasal cannula @ 100% fio2 and 40 liter flow. spo2 98% Addendum: 09/15/20 at 1302 by LALO CASTILLO RT Amended: Links added.
[2020-09-15] MEDS: MORPHINE SULFATE INJ 2 MG/ML DISP.SYRIN IV PRN (15:06)
[2020-09-15] MEDS ORDERED: ACETAMINOPHEN 650 MG/SUPP.RECT RC PRN (17:00)
[2020-09-15] MEDS: HEPARIN INFUSION/D5W 500 ML IV PRN (19:37)
--- NOTE | 2020-09-15 19:55 | NUR ---
GAVE REPORT TO RN FOR CONTINUITY OF CARE AND TO CONTACT PM GEOPHYSICAL COMPUTER MD TO RELAY EKG AND POSSIBLE MED REC FOR HIS HEART RATE
[2020-09-15] MEDS: LEVOFLOXACIN 500 MG /D5W 100ML 500 MG in PREMIX 1 EA IV SCH (20:44)
--- NOTE | 2020-09-15 21:40 | NUR ---
NO NGT ACCESS TO ADMIN NGT ORDERED MEDICATIONS. WILL MAKE MD OR BUTTONHOLE MARKER AWARE.
--- NOTE | 2020-09-15 23:03 | NUR ---
ENDORSED TO WIN RN FOR CONTINUATION OF CARE.
--- NOTE | 2020-09-15 23:05 | NUR ---
RADIO STATION ENGINEER NOTES RESUMED CARE. REPOSITIONED FOR COMFORT. PATIENT ALERT X1 TO SELF, BUT REMAINS CONFUSED. ATTEMPTED TO REORIENT PATIENT TO REALITY, EFFORTS INEFFECTIVE. DNP EMILIANA AWARE THAT PATIENT IS UNABLE TO TAKE ANY MEDS PO DUE TO ALTERED MENTAL STATUS, HIGH ASPIRATION RISK
[2020-09-16] VITALS (33 sets, daily range): BP systolic 85–153; BP diastolic 20–113
[2020-09-16] MEDS: LORAZEPAM INJ 2 MG/ML VIAL IVP PRN ×2 (03:00→05:37)
--- NOTE | 2020-09-16 03:00 | NUR ---
PUMP SERVICER NOTES REORIENTATION EFFORTS UNSUCCESSFUL, PATIENT REMAINS CONFUSED AND BECOMING AGITATED. ATIVAN 1 MG IV PUSH ADMINISTERED ORDERED
[2020-09-16] MEDS: MORPHINE SULFATE INJ 2 MG/ML DISP.SYRIN IV PRN ×2 (04:07→19:43)
[2020-09-16 05:00] LABS: BASOPHILS % (AUTO) 0.3 % (0.0-2.0); EOSINOPHILS % (AUTO) 3.2 % (0.0-6.0); HEMATOCRIT 28 % (39-51); HEMOGLOBIN 9.2 g/dL (13.5-17.5); LYMPHOCYTES # (AUTO) 1.8 /CMM (0.8-4.8); LYMPHOCYTES % (AUTO) 19.3 % (20.0-44.0); MEAN CORPUSCULAR HGB CONC 33 g/dl (31.0-36.0); MEAN CORPUSCULAR VOLUME 94 fL (80-96); MONOCYTES % (AUTO) 10.4 % (2.0-12.0); NEUTROPHILS # (AUTO) 6.3 /CMM (1.8-8.9); NEUTROPHILS % (AUTO) 66.8 % (43.0-81.0); PLATELET COUNT (AUTO) 178 /CMM (150-450); RED BLOOD CELL COUNT(AUTO) 2.93 MIL/uL (4.5-6.0); WHITE BLOOD COUNT (AUTO) 9.4 K/uL (4.3-11.0)
[2020-09-16 05:36] LABS: CALCIUM, SERUM 8.2 mg/dL (8.5-10.1); PHOSPHORUS 4.1 mg/dL (2.5-4.9)
--- NOTE | 2020-09-16 05:40 | NUR ---
EMPLOYEE BENEFITS INSURANCE AGENT NOTES PATIENT STILL RESTLESS/AGITATED. ATIVAN 1MG IV PUSH ADMINISTERED ORDERED
--- NOTE | 2020-09-16 06:30 | NUR ---
EQUIPMENT ASSOCIATE NOTES PATIENT CALM AT THIS TIME, LAYING IN BED WATCHING TV. WILL ENDORSE THE PATIENT TO THE AM SHIFT NURSE FOR COMFORT
[2020-09-16 08:11] LABS: ABG BASE EXCESS 4.2 mmol/L; ABG OXYGEN SATURATION 97.8 % (92.0-98.5); ABG PCO2 33.8 mmHg (35.0-45.0); ABG PH 7.522 (7.350-7.450); ABG PO2 100.9 mmHg (75.0-100.0); AaDO2 361.9 mmHg; COHb 0.2 % (0.5-1.5); MetHb 0.1 % (0.0-1.5); O2Hb 97.5 % (94.0-97.0); SITE, ABG Right Radial; VENT MODE, BG HFNC 60L 70%
[2020-09-16] MEDS: METRONIDAZOLE 500 MG TABLET GT SCH (09:04)
[2020-09-16] MEDS: CLARITHROMYCIN 500 MG TABLET GT SCH (09:04)
[2020-09-16] MEDS: CHOLECALCIFEROL 1,000 UNIT TABLET (VIT D3) PO SCH (09:04)
[2020-09-16] MEDS: AMOXICILLIN TRIHYDRATE 250 MG CAPSULE NG SCH (09:04)
[2020-09-16] MEDS: THIAMINE HCL 100 MG TABLET PO SCH (09:04)
[2020-09-16] MEDS: PANTOPRAZOLE 40 MG VIAL IV SCH ×2 (09:05→21:36)
[2020-09-16] MEDS: ZINC SULFATE 220 MG CAPSULE PO SCH (09:05)
[2020-09-16] MEDS: ASCORBIC ACID 500 MG TABLET PO SCH (09:05)
--- NOTE | 2020-09-16 09:20 | NUR ---
RT FIO2 TITRATED TO 50% Addendum: 09/16/20 at 1518 by TANA MATTA RT Amended: Links added.
--- NOTE | 2020-09-16 09:29 | NUR ---
PATIENT CURRENTLY ON HIGH FLOW, REMAINS CONFUSED. SPEECH THERAPIST WITH PATIENT AT THIS TIME FOR EVAL OF R/F ASPIRATION POST INTUBATION.
[2020-09-16] MEDS ORDERED: OLANZAPINE 10 MG VIAL IM ONE (10:30)
--- NOTE | 2020-09-16 13:41 | NUR ---
PATIENT WAS VERY CONFUSED AND RESTLESS ALL DAY. DESPITE THE RESTRAINTS, PATIENT WAS ABLE TO REMOVE TUBING AND MEDICAL EQUIPMENT. PER DR FRIEDMAN, ATIVAN WAS DC. ORDERS WERE PLACED FOR ZYPREXA X1, AND PSYCH CONSULT ORDERED. DR MAHARAJ VIRTUALLY VISITED PATIENT AND WILL BE PLACING NEW ORDERS AND A FOLLOW UP TOMORROW. WILL CONTINUE TO MONITOR PATIENT.
--- NOTE | 2020-09-16 16:19 | NUR ---
PTT >170, PER LAB, BLOOD DRAWN FOR LAB VIA PICC LINE WHERE HEPARIN IS BEING INFUSED. PLACED NEW STAT ORDER FOR PTT TO BE DRAWN FROM OTHER ARM FOR MORE ACCURATE RESULTS. Addendum: 09/16/20 at 1938 by OPHELIA BURKETT RN NEW PTT 44.0, HEPARIN DRIP INCREASED BY 150 UNITS/HR AND BOLUS OF 3300UNITS
[2020-09-16] MEDS: DIVALPROEX SODIUM 125 MG CAP.SPRINK PO SCH (16:25)
[2020-09-16] MEDS: HEPARIN INFUSION/D5W 500 ML IV PRN (18:53)
[2020-09-16] MEDS ORDERED: HEPARIN SODIUM, PORCINE 5000 UNITS/1 ML VIAL IV ONE (19:00)
[2020-09-16] MEDS: LEVOFLOXACIN 500 MG /D5W 100ML 500 MG in PREMIX 1 EA IV SCH (19:38)
--- NOTE | 2020-09-16 19:38 | NUR ---
PATIENT CONTINUES TO BE CONFUSED, PULLING TUBINGS, REMOVING HIGH FLOW, ATTEMPTING TO PULL OUT PICC LINE. PATIENT ALSO REMAINS TACHYCARDIC PER BEDSIDE MONITOR.
--- NOTE | 2020-09-16 20:00 | NUR ---
RIGHT OF WAY MANAGER INITIAL SHIFT NOTES RECEIVED PATIENT IN BED, AWAKE, ALERT X1 TO SELF, CONFUSED, AGITATED. PATIENT WITH BILATERAL SOFT WRIST RESTRAINTS AND 1:1 SITTER TO MAINTAIN SAFETY, PATIENT CONSTANTLY PULLING AT LINES/TUBES. REORIENTATION EFFORTS INEFFECTIVE. ON HFNC @ 40LPM, 50% FIO2, TOELRATING WELL, NO RESPIRATORY DISTRESS NOTED. ARREGUIN CATHETER PATENT AND INTACT, ST ON BEDSIDE TELEMONITOR. WILL MONITOR CLOSELY
[2020-09-16] MEDS ORDERED: OLANZAPINE 5 MG TABLET ONE (21:32)
[2020-09-16] MEDS: OLANZAPINE ZYDIS 5 MG TAB.RAPDIS PO SCH (21:35)
[2020-09-16] MEDS: CLARITHROMYCIN 500 MG TABLET PO SCH (21:36)
[2020-09-16] MEDS: METRONIDAZOLE 500 MG TABLET PO SCH (21:37)
[2020-09-16] MEDS: AMOXICILLIN TRIHYDRATE 250 MG CAPSULE PO SCH (21:37)
[2020-09-16] MEDS: ACETAMINOPHEN 325 MG TABLET PO PRN (21:45)
[2020-09-17] VITALS (35 sets, daily range): BP systolic 102–167; BP diastolic 50–106
[2020-09-17] MEDS: MORPHINE SULFATE INJ 2 MG/ML DISP.SYRIN IV PRN ×3 (01:04→17:09)
--- NOTE | 2020-09-17 03:00 | NUR ---
GAUGE MAKER NOTES REPEATED PTT RESULT 161.3 SECONDS. RESULT RELAYED TO EMILIANA MITCHELL DNP, WITH NEW ORDER TO HOLD HEPARIN DRIP FOR 2 HOURS, THEN DECREASE DRIP BY 250 UNITS/HR. NEW RATE @ 0500 = 1200 UNITS/HR. WILL CARRY OUT NEW ORDERS AND MONITOR CLOSELY
[2020-09-17 04:45] LABS: BASOPHILS % (AUTO) 0.2 % (0.0-2.0); EOSINOPHILS % (AUTO) 3.5 % (0.0-6.0); HEMATOCRIT 26 % (39-51); HEMOGLOBIN 8.4 g/dL (13.5-17.5); LYMPHOCYTES # (AUTO) 1.3 /CMM (0.8-4.8); LYMPHOCYTES % (AUTO) 18.5 % (20.0-44.0); MEAN CORPUSCULAR HGB CONC 33 g/dl (31.0-36.0); MEAN CORPUSCULAR VOLUME 94 fL (80-96); MONOCYTES # (AUTO) 0.9 /CMM (0.1-1.30); MONOCYTES % (AUTO) 12.5 % (2.0-12.0); NEUTROPHILS # (AUTO) 4.5 /CMM (1.8-8.9); NEUTROPHILS % (AUTO) 65.3 % (43.0-81.0); PLATELET COUNT (AUTO) 174 /CMM (150-450); RED BLOOD CELL COUNT(AUTO) 2.75 MIL/uL (4.5-6.0); WHITE BLOOD COUNT (AUTO) 6.9 K/uL (4.3-11.0)
[2020-09-17 05:05] LABS: CALCIUM, SERUM 8.7 mg/dL (8.5-10.1); CREATININE 1.1 mg/dL (0.6-1.3); MAGNESIUM 1.7 mg/dL (1.8-2.4); PHOSPHORUS 4.8 mg/dL (2.5-4.9); POTASSIUM 3.7 mmol/L (3.5-5.1)
[2020-09-17 05:49] LABS: ABG BASE EXCESS 1.7 mmol/L; ABG OXYGEN SATURATION 98.4 % (92.0-98.5); ABG PCO2 33.6 mmHg (35.0-45.0); ABG PH 7.488 (7.350-7.450); ABG PO2 109.4 mmHg (75.0-100.0); AaDO2 209.3 mmHg; COHb 1.3 % (0.5-1.5); MetHb 0.3 % (0.0-1.5); O2Hb 96.8 % (94.0-97.0); SITE, ABG Right Radial; VENT MODE, BG HFNC 40L 50%
--- NOTE | 2020-09-17 07:15 | NUR ---
RN INITIAL NOTES RECEIVED PT AWAKE, A/OX1 WITH PERIODS OF CONFUSION. ON HIGH FLOW 02. HOB ELEVATED. NO SOB NOTED. PT ON HEPARIN DRIP. PTT AT 0900. ARREGUIN IN PLACE. NO HEMATURIA NOTED. NO SIGNS OF ACTIVE BLEEDING NOTED. 1:1 SITTER. WILL CLOSELY MONITOR
[2020-09-17] MEDS: PANTOPRAZOLE 40 MG VIAL IV SCH ×2 (08:18→21:13)
[2020-09-17] MEDS: DIVALPROEX SODIUM 125 MG CAP.SPRINK PO SCH ×3 (08:19→16:45)
[2020-09-17] MEDS: ASCORBIC ACID 500 MG TABLET PO SCH (08:19)
[2020-09-17] MEDS: AMOXICILLIN TRIHYDRATE 250 MG CAPSULE PO SCH ×2 (08:19→21:14)
[2020-09-17] MEDS: METRONIDAZOLE 500 MG TABLET PO SCH (08:19)
[2020-09-17] MEDS: CLARITHROMYCIN 500 MG TABLET PO SCH ×2 (08:19→21:14)
[2020-09-17] MEDS: CHOLECALCIFEROL 1,000 UNIT TABLET (VIT D3) PO SCH (08:19)
[2020-09-17] MEDS: ZINC SULFATE 220 MG CAPSULE PO SCH (08:19)
[2020-09-17] MEDS: THIAMINE HCL 100 MG TABLET PO SCH (08:19)
[2020-09-17] MEDS: OLANZAPINE ZYDIS 5 MG TAB.RAPDIS PO SCH ×3 (08:20→21:15)
[2020-09-17] MEDS: ACETAMINOPHEN 325 MG TABLET PO PRN (09:07)
[2020-09-17] MEDS ORDERED: HEPARIN SODIUM, PORCINE 5000 UNITS/1 ML VIAL IV ONE (11:30)
[2020-09-17] MEDS: Magnesium 1GM/D5W 100ML PREMIX 100 ML IV SCH ×2 (12:02→13:04)
[2020-09-17] MEDS: HEPARIN INFUSION/D5W 500 ML IV PRN (13:05)
--- NOTE | 2020-09-17 18:27 | NUR ---
RN CLOSING NOTES NO SIGNIFICANT CHANGE NOTED. REMAINS ON HIGH FLOW 02. HOB ELEVATED. HEPARIN DRIP ADJUSTED. NO SIGNS OF ACTIVE BLEEDING NOTED. KEPT COMFORTABLE. WILL ENDORSE FOR CONTINUITY OF CARE.
[2020-09-17] MEDS: LEVOFLOXACIN 500 MG /D5W 100ML 500 MG in PREMIX 1 EA IV SCH (19:08)
--- NOTE | 2020-09-17 21:02 | NUR ---
LPN RN NOTES PTT 76.3 SECONDS. PER SCALE, DECREASE DRIP BY 2 UNITS///KG/HR (150UNITS). DRIP DECREASED ORDERED TO 1200 UNITS/HR. NEXT PTT SCHEDULED FOR 0300. WILL MONITOR
[2020-09-18] VITALS (25 sets, daily range): BP systolic 100–161; BP diastolic 58–113
[2020-09-18] MEDS: MORPHINE SULFATE INJ 2 MG/ML DISP.SYRIN IV PRN (01:20)
[2020-09-18] MEDS ORDERED: OLANZAPINE 10 MG VIAL IM ONE (02:00)
--- NOTE | 2020-09-18 02:00 | NUR ---
DIRECTOR PUBLIC POLICY NOTES PATIENT WIDE WAKE, RESTLESS, AGITATED, CONFUSED. REDIRECTION INEFFECTIVE, REPOSITONING FOR COMFORT INEFFECTIVE. PATIENT'S HR REMAINS ELEVATED IN THE 140s. PATIENT EVALUATED BY ALFRED BO AERIAL PHOTOGRAPHER, WITH NEW ORDER FOR ZYPREXA 5MG IM. WILL CARRY OUT NEW ORDER
[2020-09-18 03:25] LABS: BASOPHILS % (AUTO) 0.3 % (0.0-2.0); EOSINOPHILS % (AUTO) 2.6 % (0.0-6.0); HEMATOCRIT 27 % (39-51); HEMOGLOBIN 8.8 g/dL (13.5-17.5); LYMPHOCYTES % (AUTO) 12.9 % (20.0-44.0); MEAN CORPUSCULAR HGB CONC 33 g/dl (31.0-36.0); MEAN CORPUSCULAR VOLUME 94 fL (80-96); MONOCYTES % (AUTO) 13.4 % (2.0-12.0); NEUTROPHILS # (AUTO) 5.2 /CMM (1.8-8.9); NEUTROPHILS % (AUTO) 70.8 % (43.0-81.0); PLATELET COUNT (AUTO) 201 /CMM (150-450); RED BLOOD CELL COUNT(AUTO) 2.88 MIL/uL (4.5-6.0); WHITE BLOOD COUNT (AUTO) 7.4 K/uL (4.3-11.0)
[2020-09-18 03:38] LABS: CALCIUM, SERUM 8.7 mg/dL (8.5-10.1); CREATININE 1.3 mg/dL (0.6-1.3); MAGNESIUM 1.9 mg/dL (1.8-2.4); PHOSPHORUS 5.3 mg/dL (2.5-4.9); POTASSIUM 3.6 mmol/L (3.5-5.1)
--- NOTE | 2020-09-18 04:00 | NUR ---
FOOD TRUCK CATERER NOTES PATIENT REMAINS WIDE AWAKE S/P ZYPREXA IM, BUT HR NOTED TO DROP TO 130s (FROM 150s). PATIENT MORE CALM, BUT STILL DELUSIONAL WITH PERIODS OF AGITATION. Addendum: 09/18/20 at 0751 by SREEKANTH ATKINSON RN ALFRED BO DNP NOTIFIED THAT PATIENT REMAINS WITH PERIODS OF AGITATION. PER ALFRED, CONTINUE MONITORING. 1:1 SITTER AT BEDSIDE. SAFETY MAINTAINED
[2020-09-18 06:35] LABS: ABG BASE EXCESS 0.2 mmol/L; ABG OXYGEN SATURATION 97.8 % (92.0-98.5); ABG PCO2 27.3 mmHg (35.0-45.0); ABG PO2 99.3 mmHg (75.0-100.0); AaDO2 154.5 mmHg; COHb 0.5 % (0.5-1.5); MetHb 0.3 % (0.0-1.5); SITE, ABG Right Radial; VENT MODE, BG HFNC 30LPM 40%
--- NOTE | 2020-09-18 07:19 | NUR ---
pt flow increased to 40 due to equipment adjustment Addendum: 09/18/20 at 0719 by JASMIN HINOJOSA RT Amended: Links added.
--- NOTE | 2020-09-18 08:07 | NUR ---
pt is awakw and follow commands placed into nasal cannula with spo2 97- 99% RN NOTIFIED Addendum: 09/18/20 at 0807 by LALO CASTILLO RT Amended: Links added.
[2020-09-18] MEDS: HEPARIN INFUSION/D5W 500 ML IV PRN (08:27)
[2020-09-18] MEDS ORDERED: FENTANYL TD PATCH (12 MCG/HR) 12 MCG/HR PATCH.TD72 TD SCH (09:30)
[2020-09-18] MEDS ORDERED: NALOXONE HCL 0.4 MG/ML AMPUL IV PRN (09:30)
[2020-09-18] MEDS: DIVALPROEX SODIUM 125 MG CAP.SPRINK PO SCH ×3 (09:44→18:32)
[2020-09-18] MEDS: ZINC SULFATE 220 MG CAPSULE PO SCH (09:44)
[2020-09-18] MEDS: AMOXICILLIN TRIHYDRATE 250 MG CAPSULE PO SCH ×2 (09:45→21:14)
[2020-09-18] MEDS: ASCORBIC ACID 500 MG TABLET PO SCH (09:46)
[2020-09-18] MEDS: PANTOPRAZOLE 40 MG VIAL IV SCH ×2 (09:46→21:13)
[2020-09-18] MEDS: THIAMINE HCL 100 MG TABLET PO SCH (09:46)
[2020-09-18] MEDS: CHOLECALCIFEROL 1,000 UNIT TABLET (VIT D3) PO SCH (09:46)
[2020-09-18] MEDS: OLANZAPINE ZYDIS 5 MG TAB.RAPDIS PO SCH ×2 (09:47→21:15)
[2020-09-18] MEDS ORDERED: CLONIDINE HCL 0.1MG/24H PTWK 1 EA PATCH TD SCH (12:00)
[2020-09-18] MEDS: CLARITHROMYCIN 500 MG TABLET PO SCH ×2 (13:13→21:13)
[2020-09-18] MEDS: LORAZEPAM INJ 2 MG/ML VIAL IV PRN ×2 (14:36→23:18)
[2020-09-18] MEDS ORDERED: HEPARIN INFUSION/D5W 500 ML IV PRN (17:00)
--- NOTE | 2020-09-18 20:00 | NUR ---
rn picu. received the pt rest on the bed. awake, alert, confused. oxygen 4l via nasal cannula. sat 94%, laboratory monitor showing s tach 160. iv rt upper arm picc line heparin 1200u/h. yamil soft wrist restraint checked and released no injury or redness noted. will continue to monitor vitals.
[2020-09-18] MEDS ORDERED: chlorproMAZINE HCL 25 MG TABLET PO STA (20:15)
--- NOTE | 2020-09-18 22:00 | NUR ---
supervisor agricultural education, black tarry stool x1. will continue to monitor
[2020-09-19] VITALS (76 sets, daily range): BP systolic 73–135; BP diastolic 48–106
[2020-09-19] MEDS: ACETAMINOPHEN 325 MG TABLET PO PRN (02:56)
--- NOTE | 2020-09-19 03:35 | NUR ---
COUNSELLORS. HEART RATE WENT UP 177. CALLED ALFRED AT BED SIDE. EKG DONE, MG, CBC,PHOS DONE STAT. H&H 5.9/18. 2 UNITS PRBC ORDERED.
[2020-09-19 03:39] LABS: ABG OXYGEN SATURATION 99.5 % (92.0-98.5); ABG PCO2 23.9 mmHg (35.0-45.0); ABG PH 7.544 (7.350-7.450); ABG PO2 246.7 mmHg (75.0-100.0); AaDO2 442.4 mmHg; COHb 1.1 % (0.5-1.5); MetHb 0.3 % (0.0-1.5); O2Hb 98.1 % (94.0-97.0); SITE, ABG Left Radial; VENT MODE, BG 15LPM NRB
[2020-09-19 03:47] LABS: BASOPHILS # (AUTO) 0.1 /CMM (0.0-0.2); BASOPHILS % (AUTO) 0.8 % (0.0-2.0); EOSINOPHILS % (AUTO) 0.1 % (0.0-6.0); LYMPHOCYTES # (AUTO) 1.5 /CMM (0.8-4.8); LYMPHOCYTES % (AUTO) 11.7 % (20.0-44.0); MEAN CORPUSCULAR HGB CONC 32 g/dl (31.0-36.0); MEAN CORPUSCULAR VOLUME 97 fL (80-96); MONOCYTES # (AUTO) 1.1 /CMM (0.1-1.30); MONOCYTES % (AUTO) 8.8 % (2.0-12.0); NEUTROPHILS # (AUTO) 10.2 /CMM (1.8-8.9); NEUTROPHILS % (AUTO) 78.6 % (43.0-81.0); PLATELET COUNT (AUTO) 261 /CMM (150-450); WHITE BLOOD COUNT (AUTO) 12.9 K/uL (4.3-11.0)
[2020-09-19 03:54] LABS: RED BLOOD CELL COUNT(AUTO) 1.88 MIL/uL (4.5-6.0)
[2020-09-19 03:56] LABS: CALCIUM, SERUM 8.4 mg/dL (8.5-10.1); CREATININE 1.8 mg/dL (0.6-1.3); PHOSPHORUS 5.9 mg/dL (2.5-4.9); POTASSIUM 4.7 mmol/L (3.5-5.1)
[2020-09-19 03:59] LABS: HEMATOCRIT 18 % (39-51); HEMOGLOBIN 5.9 g/dL (13.5-17.5)
--- NOTE | 2020-09-19 03:59 | NUR ---
HARP REPAIRER. HEART RATE 177. VERY LETHARGIC, AGONAL BREATHING. BLOOD PRESSURE 85/45. NS 500ML BOLUS GIVEN, LOPRESSOR 2.5 MG IV ONCE GIVEN. HEART RATE WENT DOWN 130. WILL CONTINUE TO MONITOR.
[2020-09-19] MEDS ORDERED: METOPROLOL TARTRATE INJ 5 MG/5 ML AMPUL IVP ONE (04:00)
[2020-09-19] MEDS ORDERED: IV NS 0.9% 500 ML IV ONE (04:00)
[2020-09-19] MEDS: PHENYLEPHRINE 50 MG in IV NS 0.9% 245 ML IV PRN ×2 (05:25→05:30)
--- NOTE | 2020-09-19 06:00 | NUR ---
VULCANIZING PRESS OPERATOR. AM CARE GIVEN. OXYGEN NON REBREATHER ON SAT 98%. STEAMFITTER APPRENTICE SHOWING S TACH 140. ONE UNIT PRBC GIVEN. PT IS STILL VERY LETHARGIC.
[2020-09-19 06:42] LABS: LYMPHOCYTES % (MANUAL) 10 % (16-48); METAMYELOCYTES % 3 % (0-0); MONOCYTES % (MANUAL) 3 % (0-11.0); MYELOCYTES % 1 % (0-0); NEUTROPHILS % (MANUAL) 82 (42-76); REACTIVE LYMPHOCYTES 1 % (0-0)
[2020-09-19] MEDS: OLANZAPINE ZYDIS 5 MG TAB.RAPDIS PO SCH (08:58)
[2020-09-19] MEDS: CHOLECALCIFEROL 1,000 UNIT TABLET (VIT D3) PO SCH (08:58)
[2020-09-19] MEDS: ASCORBIC ACID 500 MG TABLET PO SCH (08:58)
[2020-09-19] MEDS: PANTOPRAZOLE 40 MG VIAL IV SCH (08:58)
[2020-09-19] MEDS: THIAMINE HCL 100 MG TABLET PO SCH (08:58)
[2020-09-19] MEDS: DIVALPROEX SODIUM 125 MG CAP.SPRINK PO SCH (08:58)
[2020-09-19] MEDS: ZINC SULFATE 220 MG CAPSULE PO SCH (08:58)
[2020-09-19] MEDS ORDERED: MISOPROSTOL 100 MCG TABLET PO SCH (09:00)
[2020-09-19] MEDS: CLARITHROMYCIN 500 MG TABLET PO SCH ×2 (09:09→22:15)
[2020-09-19] MEDS: AMOXICILLIN TRIHYDRATE 250 MG CAPSULE PO SCH (09:10)
[2020-09-19] MEDS ORDERED: CLARITHROMYCIN 500 MG TABLET GT SCH (09:47)
[2020-09-19] MEDS ORDERED: THIAMINE HCL 100 MG TABLET GT SCH (09:48)
[2020-09-19] MEDS ORDERED: MAG HYDROX/AL HYDROX/SIMETH 30 ML UDC GT PRN (10:06)
[2020-09-19] MEDS ORDERED: DIVALPROEX SODIUM 125 MG CAP.SPRINK GT SCH (10:07)
[2020-09-19] MEDS ORDERED: MISOPROSTOL 100 MCG TABLET GT SCH (10:07)
[2020-09-19] MEDS ORDERED: AMOXICILLIN TRIHYDRATE 250 MG CAPSULE GT SCH (10:07)
[2020-09-19] MEDS ORDERED: MAGNESIUM HYDROXIDE 30 ML UDC GT PRN (10:10)
[2020-09-19] MEDS ORDERED: DIVALPROEX SODIUM 125 MG CAP.SPRINK PO SCH (10:29)
[2020-09-19] MEDS ORDERED: ACETAMINOPHEN 650 MG/20.3 ML UDC GT PRN (10:30)
[2020-09-19] MEDS ORDERED: MAGNESIUM HYDROXIDE 30 ML UDC PO PRN (10:30)
[2020-09-19] MEDS ORDERED: MAG HYDROX/AL HYDROX/SIMETH 30 ML UDC PO PRN (10:30)
[2020-09-19 12:21] LABS: BASOPHILS % (AUTO) 0.2 % (0.0-2.0); EOSINOPHILS % (AUTO) 0.2 % (0.0-6.0); HEMATOCRIT 30 % (39-51); LYMPHOCYTES # (AUTO) 1.8 /CMM (0.8-4.8); LYMPHOCYTES % (AUTO) 11.4 % (20.0-44.0); MEAN CORPUSCULAR HGB CONC 33 g/dl (31.0-36.0); MEAN CORPUSCULAR VOLUME 93 fL (80-96); MONOCYTES # (AUTO) 2.4 /CMM (0.1-1.30); MONOCYTES % (AUTO) 14.9 % (2.0-12.0); NEUTROPHILS # (AUTO) 11.8 /CMM (1.8-8.9); NEUTROPHILS % (AUTO) 73.3 % (43.0-81.0); PLATELET COUNT (AUTO) 252 /CMM (150-450); RED BLOOD CELL COUNT(AUTO) 3.26 MIL/uL (4.5-6.0); WHITE BLOOD COUNT (AUTO) 16.1 K/uL (4.3-11.0)
[2020-09-19] MEDS: PANTOPRAZOLE 40 MG in IV NS 0.9% 100 ML IV SCH ×3 (12:35→21:23)
[2020-09-19] MEDS: MISOPROSTOL 100 MCG TABLET PO SCH ×3 (13:00→22:15)
[2020-09-19] MEDS ORDERED: IV NS 0.9% 1,000 ML IV ONE (13:00)
--- NOTE | 2020-09-19 13:00 | NUR ---
RN NOTES DR DOMINGUEZ NOTIFED REGARDING HR 160'S , NEW ORDER RECEIVED , CONTINUE TO MONITOR .
[2020-09-19 13:55] LABS: IRON, SERUM 200 ug/dl (50-175); TOTAL IRON BINDING CAPACITY 210 ug/dl (250-450)
[2020-09-19] MEDS: VALPROATE 125 MG in IV D5W 100 ML IV SCH ×2 (15:20→21:22)
[2020-09-19] MEDS: AMPICILLIN SODIUM INJ 1 GM in IV NS 50 ML IV SCH ×2 (17:02→23:21)
[2020-09-19] MEDS: IV NS 0.9% 1,000 ML IV PRN (18:06)
[2020-09-19 18:11] LABS: HEMOGLOBIN 8.9 g/dL (13.5-17.5)
--- NOTE | 2020-09-19 18:17 | NUR ---
RN NOTES PT IS MORE ALERT , ORIENTED, AND TALKATIVE, O 3L O2 N/C , O2 SAT HIGH 90'S , NS AT 100CC/HR , PROTONIX GTT AT 20CC/HR RUNNING , SR UP x3, CALL LIGHT WITHIN EASY REACH, WILL ENDOSE TO CREPE BOX TENDER NURSE FOR CONTINUITY OF CARE.
--- NOTE | 2020-09-19 20:14 | NUR ---
neonatal icu coordinator. initial assessment. received the pt rest on the bed. awake, alert. confused. oxygen 4l via nasal cannula. sat 97%, no acute distress noted mailing clerk showing s tach. rate is 140. afebrile. iv rt upper arm picc line. cvp connected to picc line. protonix 20 ml/h, ivf ns 100 ml/h. hob elevated, will continue to monitor vitals.
[2020-09-19] MEDS: OLANZAPINE ZYDIS 5 MG TAB.RAPDIS SL SCH (22:15)
[2020-09-20] VITALS (43 sets, daily range): BP systolic 86–137; BP diastolic 23–100
[2020-09-20 00:09] LABS: HEMOGLOBIN 7.9 g/dL (13.5-17.5)
[2020-09-20] MEDS: PANTOPRAZOLE 40 MG in IV NS 0.9% 100 ML IV SCH ×4 (03:25→18:41)
--- NOTE | 2020-09-20 04:57 | NUR ---
3:30 WAS INFORMED BY NURSE CERVANTES AND DAMARIS RN IN ICU THAT PATIENT WAS TO UNSTABLE TO PERFORM CX XRAY AT THIS TIME, WE WILL BE CALLED WHEN PATIENT IS STABLE AND READY FOR EXAM....END OF NOTE GREG ELENA RT R CT ELIANA HOPKINS RT R
--- NOTE | 2020-09-20 05:40 | NUR ---
agriculture instructor. am care, given. linen changed. remaining same oxygen tolerated well. sat 99%. no acute distress noted. equipment monitor phototypesetting showing s tach. gt clamped, afebrile. pt slept well after 0100. protonox 20ml/h. ivf ns 100ml/h. hob elevated. turn and reposition q2h. will continue to monitor vitals.
--- NOTE | 2020-09-20 05:43 | NUR ---
sustainable agriculture faculty. pt is npo. for egd today. .will continue to monitor vitals.
[2020-09-20] MEDS: AMPICILLIN SODIUM INJ 1 GM in IV NS 50 ML IV SCH ×3 (06:15→17:59)
[2020-09-20] MEDS: VALPROATE 125 MG in IV D5W 100 ML IV SCH ×3 (06:19→21:05)
[2020-09-20 08:31] LABS: BASOPHILS % (AUTO) 0.3 % (0.0-2.0); EOSINOPHILS % (AUTO) 0.5 % (0.0-6.0); HEMATOCRIT 23 % (39-51); HEMOGLOBIN 7.4 g/dL (13.5-17.5); LYMPHOCYTES % (AUTO) 13.9 % (20.0-44.0); MEAN CORPUSCULAR HGB CONC 33 g/dl (31.0-36.0); MEAN CORPUSCULAR VOLUME 93 fL (80-96); MONOCYTES # (AUTO) 1.9 /CMM (0.1-1.30); MONOCYTES % (AUTO) 13.3 % (2.0-12.0); NEUTROPHILS # (AUTO) 10.4 /CMM (1.8-8.9); PLATELET COUNT (AUTO) 228 /CMM (150-450); RED BLOOD CELL COUNT(AUTO) 2.41 MIL/uL (4.5-6.0); WHITE BLOOD COUNT (AUTO) 14.4 K/uL (4.3-11.0)
[2020-09-20 08:59] LABS: ALANINE AMINOTRANSFERASE 43 U/L (12-78); ALKALINE PHOSPHATASE 43 U/L (46-116); ASPARTATE AMINOTRANSFERASE 45 U/L (15-37); BILIRUBIN,TOTAL 0.4 mg/dL (0.2-1.0); CALCIUM, SERUM 7.5 mg/dL (8.5-10.1); CARBON DIOXIDE 26 mmol/L (21-32); CHLORIDE 111 mmol/L (98-107); CREATININE 1.2 mg/dL (0.6-1.3); GLUCOSE 139 mg/dL (74-106); MAGNESIUM 2.3 mg/dL (1.8-2.4); PHOSPHORUS 3.1 mg/dL (2.5-4.9); POTASSIUM 3.9 mmol/L (3.5-5.1); SODIUM SERUM 146 mmol/L (136-145); TOTAL PROTEIN, SERUM 5.1 g/dL (6.4-8.2); UREA NITROGEN, BLOOD 32 mg/dL (7-18)
[2020-09-20] MEDS: OLANZAPINE ZYDIS 5 MG TAB.RAPDIS SL SCH ×3 (09:00→22:25)
[2020-09-20] MEDS: MISOPROSTOL 100 MCG TABLET PO SCH ×4 (09:00→20:43)
[2020-09-20] MEDS: CLARITHROMYCIN 500 MG TABLET PO SCH ×2 (09:00→20:43)
[2020-09-20] MEDS: ASCORBIC ACID 500 MG TABLET PO SCH (09:00)
[2020-09-20] MEDS: ZINC SULFATE 220 MG CAPSULE PO SCH (09:00)
[2020-09-20] MEDS: CHOLECALCIFEROL 1,000 UNIT TABLET (VIT D3) PO SCH (09:00)
[2020-09-20] MEDS: THIAMINE HCL 100 MG TABLET PO SCH (09:00)
--- NOTE | 2020-09-20 09:49 | NUR ---
PT PO AND SL MEDS NON-ADMIN, PT NPO for EGD at 12. EGD AND ANESTHESIA CONSENTS SIGNED VIA TELEPHONE CONSENT OF PT FRIEND, LILY.
[2020-09-20 13:41] LABS: BAND % (MANUAL) 2 % (0.0-5.0); LYMPHOCYTES % (MANUAL) 18 % (16-48); MONOCYTES % (MANUAL) 6 % (0-11.0); MYELOCYTES % 1 % (0-0); NEUTROPHILS % (MANUAL) 73 (42-76)
[2020-09-20 17:53] LABS: HEMOGLOBIN 6.8 g/dL (13.5-17.5)
[2020-09-20] MEDS: ACETAMINOPHEN 325 MG TABLET PO PRN (18:04)
--- NOTE | 2020-09-20 20:00 | NUR ---
ICU/OUTSIDE SALESPERSON THE BLOOD BANK CALLED, SAID THAT THE PT'S BLOOD TYPE IS O POSITIVE. THERE IS A SHORTAGE OF BLOOD FOR THIS TYPE, WHICH IS COMING FROM THE [place]. THE BLOOD BANK ORDERED ANY WAY DUE TO LOW H/H OF 6.8/20. WAIT FOR THIS TO COME IN . MADE PT AWARE OF THIS.
--- NOTE | 2020-09-20 20:27 | NUR ---
ICU/CITY PLANNING ENGINEER ORDER OBTAINED FOR PAIN MEDICATION, PT SAID PAIN IS 8/10. ALFRED PALMER WAS NOTIFED WHO GAVE ORDER FOR 1 NORCO Q 4 HRS PRN FOR PAIN.
[2020-09-20] MEDS ORDERED: HYDROCODONE/APAP 7.5/325MG 1 EACH TABLET PO PRN (20:30)
[2020-09-20] MEDS ORDERED: HYDROCODONE/APAP 10/325MG TABLET PO PRN (20:30)
--- NOTE | 2020-09-20 22:53 | NUR ---
ICU/PARTS DESIGNER PT REFUSED THE ZYPREXA, PT APPREAS TO BE ALERT AND ORTX4. WILL CONTINUE TO CLOSELY MONITOR THIS PT.
[2020-09-21] VITALS (49 sets, daily range): BP systolic 48–141; BP diastolic 21–89
[2020-09-21] MEDS: PANTOPRAZOLE 40 MG in IV NS 0.9% 100 ML IV SCH ×5 (00:30→19:05)
[2020-09-21] MEDS: AMPICILLIN SODIUM INJ 1 GM in IV NS 50 ML IV SCH ×2 (00:31→06:06)
--- NOTE | 2020-09-21 00:32 | NUR ---
ICU/TOXICOLOGIST FIRST OF TWO UNITS OF BLOOD STARTED AND GIVEN. ALSO AT THIS TIME TYLENOL GIVEN AT THIS TIME.
[2020-09-21] MEDS: ACETAMINOPHEN 325 MG TABLET PO PRN ×3 (00:34→23:43)
[2020-09-21] MEDS: GUAIFENESIN/CODEINE 10 ML UDC PO PRN ×5 (00:51→21:06)
--- NOTE | 2020-09-21 01:10 | NUR ---
ICU/ASPHALT PAVING SUPERVISOR CALLED DEMURRAGE MAN SPENCER SIMON FOR LASIX DUE TO BLOOD TRANSFUSION PT IS CURRENTLY GETTING. HOWEVER ALFRED BOILERMAKER PIPE FITTER SAID NO BECAUSE PT'S HEART RATE AND BLOOD PRESSURE IS GOOD, BODY IS HOLDING ON TO FLUID.
[2020-09-21] MEDS ORDERED: GUAIFENESIN/CODEINE 10 ML UDC PO ONE (04:00)
--- NOTE | 2020-09-21 04:27 | NUR ---
ICU/DRAPERY INSPECTOR PT BEGAN TO COUGH, SATURATION CAME DOWN TO THE 80'S, PT REQUESTED COUGH SYRUP. OBTAINED A ONE TIME ORDER FOR THIS. THEN THIS WAS GIVEN. WILL CONTINUE TO CLOSELY MONITOR THIS PT.
--- NOTE | 2020-09-21 04:38 | NUR ---
04:00 HRS WAS INFORMED BY RN BAKARI OF ICU DEPT. THAT PATIENT WAS NEEDING TO SLEEP AND THAT XRAY IS TO BE PERFORMED AT 07:00 HRS...END OF REPORT GREG ALBRIGHT
--- NOTE | 2020-09-21 04:45 | NUR ---
ICU/SENIOR WINDOWS SYSTEMS ENGINEER SECOND UNIT OF BLOOD IS HUNG UP AND INFUSING. PT APPEARS TO BE TOLERATING THIS WELL.
[2020-09-21] MEDS: VALPROATE 125 MG in IV D5W 100 ML IV SCH ×3 (04:57→22:39)
[2020-09-21] MEDS: LORAZEPAM INJ 2 MG/ML VIAL IV PRN ×3 (06:06→21:06)
[2020-09-21] MEDS: IV NS 0.9% 1,000 ML IV PRN (06:40)
--- NOTE | 2020-09-21 06:48 | NUR ---
ICU/NAUTICAL INSTRUMENT MECHANIC PT APPEARS TO BE HAVING A PANIC ATTACK, ATIVAN WAS GIVEN BY CHARGE NURSE. WILL CONTINUE TO MONITOR THIS PT AND HIS SATURATION. INCREASED THE OXYGEN TO 4 LITERS FROM 2, TO SUPPORT PT DURING HIS PANIC ATTACK.
--- NOTE | 2020-09-21 08:00 | NUR ---
RN NOTES RECEIVED PATIENT IN THE BED A/O X2/3 WITH CONFUSION, ANXIOUS, GET IRRITABLE EASILY WAS REMOVED ALL SETTING, SELECTIVE WITH MEDICATION, EDUCATED, AND EXPLAINED IMPORTANT OF MEDICATION INTAKE. INFUSING PROTONIX 20 ML/HR, AND NS AT 100 ML/HR INTACT ON RIGHT UA PICC LINE INTACT. ARREGUIN DRAINING GRAVITY. PATIENT TURN AND REPOSTION SELF IN THE BED, DVT PUMP ON, T-99.3R REFUSED MEDICATION, AND COOLING NMEASURE. CALL LIGHT WITHIN TO REACH. WILL MONITORING.
[2020-09-21] MEDS: THIAMINE HCL 100 MG TABLET PO SCH (08:55)
[2020-09-21] MEDS: ASCORBIC ACID 500 MG TABLET PO SCH (08:55)
[2020-09-21] MEDS: ZINC SULFATE 220 MG CAPSULE PO SCH (08:55)
[2020-09-21] MEDS: CHOLECALCIFEROL 1,000 UNIT TABLET (VIT D3) PO SCH (08:55)
[2020-09-21] MEDS: OLANZAPINE ZYDIS 5 MG TAB.RAPDIS SL SCH ×2 (08:58→22:37)
[2020-09-21] MEDS: CLARITHROMYCIN 500 MG TABLET PO SCH ×2 (08:58→22:37)
[2020-09-21] MEDS: MISOPROSTOL 100 MCG TABLET PO SCH ×4 (08:58→22:37)
--- NOTE | 2020-09-21 12:17 | NUR ---
RN NOTES ADMINISTERED ATIVAN 0.5 MG/ML IV PUSH FOR ANXIETY , AND ROBITUSSIN 10ML PO PRN FOR COUGH. WILL MONITORING.
[2020-09-21] MEDS: PIPERACILLIN /TAZOBACTAM 4.5 G in IV D5W 50 ML IV SCH ×2 (12:19→17:43)
[2020-09-21 14:02] LABS: BASOPHILS # (AUTO) 0.1 /CMM (0.0-0.2); BASOPHILS % (AUTO) 0.8 % (0.0-2.0); EOSINOPHILS % (AUTO) 3.3 % (0.0-6.0); HEMATOCRIT 28 % (39-51); HEMOGLOBIN 9.2 g/dL (13.5-17.5); LYMPHOCYTES # (AUTO) 1.6 /CMM (0.8-4.8); LYMPHOCYTES % (AUTO) 15.1 % (20.0-44.0); MEAN CORPUSCULAR HGB CONC 33 g/dl (31.0-36.0); MEAN CORPUSCULAR VOLUME 94 fL (80-96); MONOCYTES # (AUTO) 1.2 /CMM (0.1-1.30); MONOCYTES % (AUTO) 11.6 % (2.0-12.0); NEUTROPHILS # (AUTO) 7.4 /CMM (1.8-8.9); NEUTROPHILS % (AUTO) 69.2 % (43.0-81.0); PLATELET COUNT (AUTO) 183 /CMM (150-450); RED BLOOD CELL COUNT(AUTO) 2.97 MIL/uL (4.5-6.0); WHITE BLOOD COUNT (AUTO) 10.7 K/uL (4.3-11.0)
[2020-09-21 14:38] LABS: CALCIUM, SERUM 7.1 mg/dL (8.5-10.1); MAGNESIUM 2.1 mg/dL (1.8-2.4)
[2020-09-21] MEDS: POTASSIUM CHLORIDE 20 MEQ TAB.PRT.SR PO SCH ×3 (15:48→16:21)
--- NOTE | 2020-09-21 16:21 | NUR ---
rn notes administered Robitussin 10 ml po prn for cough per patient request.
[2020-09-21 17:02] LABS: BAND % (MANUAL) 1 % (0.0-5.0); EOSINOPHILS % (MANUAL) 2 % (0-4); LYMPHOCYTES % (MANUAL) 15 % (16-48); MONOCYTES % (MANUAL) 10 % (0-11.0); NEUTROPHILS % (MANUAL) 72 (42-76)
--- NOTE | 2020-09-21 17:49 | NUR ---
RN NOTES ADMINISTERED TYLENOL 650 MG PO PRN FOR FEVER 100.1 F, AND COOLING MACHINE.
--- NOTE | 2020-09-21 18:30 | NUR ---
rn notes patient resting at this time. infusing Protonix iv on right picc line intact. patient refused bp to be taken, removed all telemonitor settings. rechecked t-99.2 at this time, refused dinner. MRI consent for check list done.Per MRI teach refused to take patient at this time because patient will unable to lye still. [place] catheter output was 850ml. call light within to reach, PM care done, mediation administered. endorsed oncoming nurse follow plan of care.
--- NOTE | 2020-09-21 20:00 | NUR ---
ICU/VP OXYGEN WAS LOWERED DOWN TO 2 LITERS FROM 5 LITERS, SATURATION IS 95%. WILL MONITOR THIS PT AND HIS SATURATION.
--- NOTE | 2020-09-21 20:30 | NUR ---
ICU/VOCATIONAL ADVISER BROUGHT UP CHAIR FROM [facility] FOR PT TO SIT IN CHAIR TO HELP WITH CIRCULATION AND OXYGENATION. WILL MONITOR THIS PT.
--- NOTE | 2020-09-21 21:30 | NUR ---
ICU/TRIM ATTACHER PT HAS A BOUT OF COUGHING UNCONTROLLED, GAVE ROBITUSSIN FOR THE COUGH. WILL CONTINUE TO MONITOR THE PT AND HIS COUGHING ALONG WITH SATURATION.
--- NOTE | 2020-09-21 22:00 | NUR ---
ICU/INSOLE DOUBLER WHEN PT HAS BOUTS OF COUGHING , PT HAS PANIC ATTACK, NOTIFIED CHARGE NURSE WHO THEN GAVE PRN ATIVAN. WILL CONTINUE TO MONITOR THIS PT.
[2020-09-21 22:01] LABS: BASOPHILS # (AUTO) 0.1 /CMM (0.0-0.2); BASOPHILS % (AUTO) 1.1 % (0.0-2.0); EOSINOPHILS % (AUTO) 4.3 % (0.0-6.0); HEMATOCRIT 28 % (39-51); HEMOGLOBIN 9.2 g/dL (13.5-17.5); LYMPHOCYTES # (AUTO) 0.9 /CMM (0.8-4.8); LYMPHOCYTES % (AUTO) 8.6 % (20.0-44.0); MEAN CORPUSCULAR HGB CONC 33 g/dl (31.0-36.0); MEAN CORPUSCULAR VOLUME 94 fL (80-96); MONOCYTES # (AUTO) 1.5 /CMM (0.1-1.30); MONOCYTES % (AUTO) 14.6 % (2.0-12.0); NEUTROPHILS # (AUTO) 7.2 /CMM (1.8-8.9); NEUTROPHILS % (AUTO) 71.4 % (43.0-81.0); PLATELET COUNT (AUTO) 192 /CMM (150-450); RED BLOOD CELL COUNT(AUTO) 2.96 MIL/uL (4.5-6.0); WHITE BLOOD COUNT (AUTO) 10.1 K/uL (4.3-11.0)
[2020-09-21 22:52] LABS: EOSINOPHILS % (MANUAL) 2 % (0-4); LYMPHOCYTES % (MANUAL) 14 % (16-48); MONOCYTES % (MANUAL) 13 % (0-11.0); NEUTROPHILS % (MANUAL) 71 (42-76)
--- NOTE | 2020-09-21 23:00 | NUR ---
ICU/PROGRAM DEVELOPMENT MANAGER H/H Q 6 HRS WAS ONE AT 2200, IT IS 9.2. NEXT TIME FOR THIS LAB IS IN AM.
[2020-09-22] VITALS (27 sets, daily range): BP systolic 106–193; BP diastolic 42–111
--- NOTE | 2020-09-22 | NUR ---
ICU/SENIOR ORACLE SOA DEVELOPER GAVE PT TYLENOL FOR PAIN, PT SAID PAIN IS AT A 6/10. WILL MONITOR THIS PT AND HIS PAIN.
[2020-09-22] MEDS: PANTOPRAZOLE 40 MG in IV NS 0.9% 100 ML IV SCH ×5 (00:07→20:04)
[2020-09-22] MEDS: PIPERACILLIN /TAZOBACTAM 4.5 G in IV D5W 50 ML IV SCH ×5 (00:08→23:02)
--- NOTE | 2020-09-22 01:00 | NUR ---
ICU/BLOWER ROOM ATTENDANT PT HAS HAD LARGE LOSE GREEN STOOL. WILL CONTINUE TO MONITOR HIS PT. Addendum: 09/22/20 at 0154 by BAKARI LOU LVN MANY LOSE GREEN STOOL SINCE THE START OF THE SHIFT.
--- NOTE | 2020-09-22 03:45 | NUR ---
ICU/OVEN UNLOADER WHEN PT HAS BOUTS OF COUGHING , PT HAS PANIC ATTACK, NOTIFIED CHARGE NURSE WHO THEN GAVE PRN ATIVAN. WILL CONTINUE TO MONITOR THIS PT.
[2020-09-22] MEDS: LORAZEPAM INJ 2 MG/ML VIAL IV PRN ×2 (04:02→10:20)
[2020-09-22] MEDS: GUAIFENESIN/CODEINE 10 ML UDC PO PRN ×3 (04:03→20:51)
--- NOTE | 2020-09-22 04:30 | NUR ---
ICU/WATER TEAM LEADER PT HAS A BOUT OF COUGHING UNCONTROLLED, GAVE ROBITUSSIN FOR THE COUGH. WILL CONTINUE TO MONITOR THE PT AND HIS COUGHING ALONG WITH SATURATION.
[2020-09-22] MEDS: VALPROATE 125 MG in IV D5W 100 ML IV SCH (04:42)
[2020-09-22 04:43] LABS: BASOPHILS % (AUTO) 0.2 % (0.0-2.0); EOSINOPHILS % (AUTO) 4.3 % (0.0-6.0); HEMATOCRIT 31 % (39-51); HEMOGLOBIN 10.2 g/dL (13.5-17.5); LYMPHOCYTES # (AUTO) 2.3 /CMM (0.8-4.8); LYMPHOCYTES % (AUTO) 18.6 % (20.0-44.0); MEAN CORPUSCULAR HGB CONC 33 g/dl (31.0-36.0); MEAN CORPUSCULAR VOLUME 94 fL (80-96); MONOCYTES # (AUTO) 1.4 /CMM (0.1-1.30); MONOCYTES % (AUTO) 11.6 % (2.0-12.0); NEUTROPHILS % (AUTO) 65.3 % (43.0-81.0); PLATELET COUNT (AUTO) 189 /CMM (150-450); RED BLOOD CELL COUNT(AUTO) 3.27 MIL/uL (4.5-6.0); WHITE BLOOD COUNT (AUTO) 12.3 K/uL (4.3-11.0)
[2020-09-22 05:07] LABS: CALCIUM, SERUM 7.3 mg/dL (8.5-10.1); CREATININE 1.2 mg/dL (0.6-1.3); MAGNESIUM 2.1 mg/dL (1.8-2.4); PHOSPHORUS 2.9 mg/dL (2.5-4.9); POTASSIUM 3.2 mmol/L (3.5-5.1)
--- NOTE | 2020-09-22 06:19 | NUR ---
ICU/SHORTHAND REPORTER PT HAS CONTINUED TO HAVE MANY LARGE LOSE GREEN STOOLS. WILL CONTINUE TO MONITOR HIS PT.
[2020-09-22] MEDS: MISOPROSTOL 100 MCG TABLET PO SCH ×4 (08:06→21:19)
[2020-09-22] MEDS: CLARITHROMYCIN 500 MG TABLET PO SCH ×2 (08:06→21:19)
[2020-09-22] MEDS: ZINC SULFATE 220 MG CAPSULE PO SCH (08:06)
[2020-09-22] MEDS: THIAMINE HCL 100 MG TABLET PO SCH (08:06)
[2020-09-22] MEDS: ASCORBIC ACID 500 MG TABLET PO SCH (08:06)
[2020-09-22] MEDS: CHOLECALCIFEROL 1,000 UNIT TABLET (VIT D3) PO SCH (08:07)
[2020-09-22] MEDS: OLANZAPINE ZYDIS 5 MG TAB.RAPDIS SL SCH ×2 (08:07→21:20)
[2020-09-22] MEDS: ACETAMINOPHEN 325 MG TABLET PO PRN ×3 (08:11→22:28)
[2020-09-22] MEDS: POTASSIUM CHLORIDE 20 MEQ TAB.PRT.SR PO SCH ×3 (08:39→11:19)
[2020-09-22] MEDS ORDERED: FUROSEMIDE 20 MG/2 ML VIAL IV ONE (09:00)
--- NOTE | 2020-09-22 11:13 | NUR ---
09:10 - WILLIAN COOLEY FOUND THE PATIENT ON THE FLOOR, NURSES CAME AND ASSESS THE PATIENT, NO SIGNS OF BLEEDING AND NO COMPLAIN OF PAIN. CHECKED V/S WNL. PATIENT TRANSPORTED BACK TO THE BED WITH SAFETY PRECAUTION. PATIENT WAS CLEANED, BED IN LOWEST LOCKED POSITION WITH SIDE RAILS UPX3, CALL LIGHT WITHIN REACH. 1:1 NEEDED , PATIENT IS VERY CONFUSED. MD, CHARGE NURSE AND LEAN ENGINEER MADE AWARE. AWAITING FOR CALL BACK FROM MD. FAMILY MADE AWARE. WILL CONTINUE TO MONITOR.
[2020-09-22] MEDS: DIVALPROEX SODIUM 125 MG CAP.SPRINK PO SCH ×2 (12:06→21:20)
[2020-09-22 13:17] LABS: HEMOGLOBIN 10.9 g/dL (13.5-17.5)
--- NOTE | 2020-09-22 15:00 | NUR ---
RN NOTES SEEN AND EXAMINED BY RUTH WEINSTEINO ORDERS AT THIS TIME.
[2020-09-22 17:47] LABS: ABG BASE EXCESS -1.5 mmol/L; ABG OXYGEN SATURATION 98.2 % (92.0-98.5); ABG PCO2 28.7 mmHg (35.0-45.0); ABG PH 7.484 (7.350-7.450); ABG PO2 152.8 mmHg (75.0-100.0); AaDO2 387.5 mmHg; COHb 0.2 % (0.5-1.5); MetHb 0.5 % (0.0-1.5); O2Hb 97.5 % (94.0-97.0); SITE, ABG Right Radial; VENT MODE, BG NRB MASK
--- NOTE | 2020-09-22 19:00 | NUR ---
RN NOTES ENDORSE TO EMERGENCY DEPARTMENT PHYSICIAN NURSE, A/O X1. NO SIGNS OF DISTRESS NOTED AT THIS TIME, NO COMPLAIN OF PAIN. ON NON REBREATHER MASK 15L. SAFETY MEASURES IN PLACE, BED IN LOWEST LOCKED POSITION WITH SIDE RAILS UP X2. CALL LIGHT WITHIN EASY REACH, SITTER AT BEDSIDE.
[2020-09-22 20:05] LABS: HEMOGLOBIN 10.8 g/dL (13.5-17.5)
--- NOTE | 2020-09-22 21:00 | NUR ---
INTERMEDIATE CARD TENDER NOTES PATIENT CONFUSED/DELUSIONAL, REAPEATEDLY PULLING OFF NRM, NOTING TO DESAT TO 80s WHEN MASK IS OFF, REFUSING MEDS. PATIENT WITH PERSISTENT COUGH. PATIENT SEEN AND EXAMINED BY ALFRED BO DNP. WITH GILBERT SIMON AT [facility], ABLE TO ADMINISTER PO MEDICATION INCLUDING COUGH SYRUP, ZYPREXA, DEPAKOTE, BIAXIN, CYTOTEC WITH COACHING. PER ALFRED HUNT, KEEP PATIENT CALM, AND CONTINUEO2 VIA NRM. NNO RECEIVED AT THIS TIME. WILL MONITOR
[2020-09-23] VITALS (30 sets, daily range): BP systolic 76–179; BP diastolic 35–99
[2020-09-23] MEDS: PANTOPRAZOLE 40 MG in IV NS 0.9% 100 ML IV SCH ×5 (00:16→20:38)
[2020-09-23] MEDS: GUAIFENESIN/CODEINE 10 ML UDC PO PRN ×5 (00:16→21:01)
--- NOTE | 2020-09-23 00:30 | NUR ---
VINER OPERATOR NOTES COUGH SYRUP ADMINISTERED ORDERED, PATIENT WITH DRY COUGH
--- NOTE | 2020-09-23 02:00 | NUR ---
MONOTYPIST NOTES NOTED WITH YELLOW/GREEN LOOSE STOOL. PARTIAL BEDBATH RENDERED, SHEETS CHANGED, PATIENT REPOSITIONED FOR COMFORT. REMAINS ON HIGH FLOW NASAL CANNULA @ 15LPM
--- NOTE | 2020-09-23 03:19 | NUR ---
LEAD SECURITY OFFICER NOTES PATIENT DESATTING WHILE ON NRM @ 15LPM. ALFRED BO NOTIFIED, WITH ORDER FOR STAT ABG AND TO PLACE PATIENT ON HIGH FLOW NASAL CANNULA. RT CALLED TO BEDSIDE FOR STAT ABG DRAW AND INITIATION OF HIGH FLOW NASAL CANNULA Addendum: 09/23/20 at 0435 by SREEKANTH ATKINSON RN PATIENT PLACED ON HIGH FLOW NC @60LPM, FIO2 100%, WITH NRM @ 15LPM
[2020-09-23 03:25] LABS: ABG BASE EXCESS -2.7 mmol/L; ABG OXYGEN SATURATION 86.5 % (92.0-98.5); ABG PCO2 34.7 mmHg (35.0-45.0); ABG PH 7.409 (7.350-7.450); ABG PO2 52.8 mmHg (75.0-100.0); AaDO2 481.2 mmHg; COHb 0.6 % (0.5-1.5); MetHb 0.4 % (0.0-1.5); O2Hb 85.6 % (94.0-97.0); SITE, ABG Right Radial; VENT MODE, BG 25L NRB
--- NOTE | 2020-09-23 03:30 | NUR ---
CONSTRUCTION IRONWORKER HELPER NOTES SPARERIBS TRIMMER ALFRED BO CALLED TO BEDSIDE TO SPEAK TO PATIENT. PATIENT BEING NONCOMPLIANT TOWARD NURSING STAFF DIRECTIONS, REPEATEDLY PULLING OFF NRM
[2020-09-23] MEDS: LORAZEPAM INJ 2 MG/ML VIAL IV PRN ×4 (03:48→22:13)
--- NOTE | 2020-09-23 04:01 | NUR ---
CHART CHANGER NOTES ALFRED HUNT AT BEDSIDE. PER ALFRED, STAT COVID ANTIGEN TEST, STAT PCR. DNP WILL PERSONALLY SWAB THE PATIENT. ORDERS PLACED, LAB CALLED REGARDING STAT ORDERS. Addendum: 09/23/20 at 0434 by SREEKANTH ATKINSON RN PATIENT ALERT AND ORIENTED X2-3 AT THIS TIME, MORE ALERT NOW COMPARED TO PREVIOUS BASELINE. REMAINS ON HIGH FLOW NASAL CANNULA @ 60LPM, FIO2 100%, WITH NRM @ 15LPM
[2020-09-23 04:57] LABS: BASOPHILS # (AUTO) 0.1 /CMM (0.0-0.2); BASOPHILS % (AUTO) 0.5 % (0.0-2.0); EOSINOPHILS % (AUTO) 1.3 % (0.0-6.0); HEMATOCRIT 29 % (39-51); HEMOGLOBIN 9.6 g/dL (13.5-17.5); LYMPHOCYTES # (AUTO) 1.1 /CMM (0.8-4.8); LYMPHOCYTES % (AUTO) 8.3 % (20.0-44.0); MEAN CORPUSCULAR HGB CONC 34 g/dl (31.0-36.0); MEAN CORPUSCULAR VOLUME 94 fL (80-96); MONOCYTES # (AUTO) 1.3 /CMM (0.1-1.30); MONOCYTES % (AUTO) 10.2 % (2.0-12.0); NEUTROPHILS # (AUTO) 10.3 /CMM (1.8-8.9); NEUTROPHILS % (AUTO) 79.7 % (43.0-81.0); PLATELET COUNT (AUTO) 244 /CMM (150-450); RED BLOOD CELL COUNT(AUTO) 3.06 MIL/uL (4.5-6.0)
[2020-09-23 05:10] LABS: CALCIUM, SERUM 7.8 mg/dL (8.5-10.1); CREATININE 1.1 mg/dL (0.6-1.3); PHOSPHORUS 3.1 mg/dL (2.5-4.9); POTASSIUM 2.9 mmol/L (3.5-5.1)
[2020-09-23] MEDS: ACETAMINOPHEN 325 MG TABLET PO PRN ×3 (05:14→21:01)
[2020-09-23] MEDS: DIVALPROEX SODIUM 125 MG CAP.SPRINK PO SCH ×3 (05:15→20:55)
[2020-09-23] MEDS: PIPERACILLIN /TAZOBACTAM 4.5 G in IV D5W 50 ML IV SCH ×3 (05:18→17:09)
--- NOTE | 2020-09-23 07:15 | NUR ---
RN INITIAL NOTES RECEIVED PT AWAKE, A/0X2 WITH PERIODS OF CONFUSION. ON HIGH FLOW 02. HOB ELEVATED. NO SIGNS OF PAIN NOTED. SERINA PICC IN PLACE. ON PROTONIC DRIP. ARREGUIN IN PLACE. BLE ELEVATED. WILL MONITOR
--- NOTE | 2020-09-23 08:00 | NUR ---
PATIENT REFUSED US THIS MORNING, WANTS TO BE DONE TOMORROW MORNING, MD DOMINGUEZ AND RN AWARE
[2020-09-23] MEDS: OLANZAPINE ZYDIS 5 MG TAB.RAPDIS SL SCH ×2 (08:22→21:01)
[2020-09-23] MEDS: CLARITHROMYCIN 500 MG TABLET PO SCH (08:22)
[2020-09-23] MEDS: ASCORBIC ACID 500 MG TABLET PO SCH (08:22)
[2020-09-23] MEDS: MISOPROSTOL 100 MCG TABLET PO SCH ×4 (08:22→20:55)
[2020-09-23] MEDS: THIAMINE HCL 100 MG TABLET PO SCH (08:22)
[2020-09-23] MEDS: CHOLECALCIFEROL 1,000 UNIT TABLET (VIT D3) PO SCH (08:22)
[2020-09-23] MEDS: ZINC SULFATE 220 MG CAPSULE PO SCH (08:22)
[2020-09-23] MEDS: POTASSIUM CHLORIDE 20 MEQ TAB.PRT.SR PO SCH ×5 (09:59→14:03)
[2020-09-23] MEDS ORDERED: HEPARIN SODIUM, PORCINE 5000 UNITS/1 ML VIAL SQ SCH (13:30)
--- NOTE | 2020-09-23 18:28 | NUR ---
RN CLOSING NOTES PT ON HIGH FLOW AND NON-REBREATHER. KEPT HOB ELEVATED. KEPT COMFORTABLE. ALL NEEDS ATTENDED AND MET. KEPT COMFORTABLE. WILL ENDORSE FOR CONTINUITY OF CARE.
[2020-09-23] MEDS ORDERED: MEROPENEM 500 MG in IV NS 0.9% 50 ML IV SCH (21:00)
[2020-09-23] MEDS: MICAFUNGIN SODIUM 100 MG in IV NS 0.9% 100 ML IV SCH (22:13)
[2020-09-23] MEDS: VANCOMYCIN 1 GM in IV D5W 250 ML IV SCH (22:14)
[2020-09-23] MEDS: MEROPENEM 1 G in IV NS 0.9% 100 ML IV SCH (22:14)
[2020-09-23] MEDS ORDERED: METOPROLOL TARTRATE 25 MG TABLET PO SCH (23:30)
--- NOTE | 2020-09-23 23:30 | NUR ---
Yunier at bedside evaluating patient and ordered an ABG. Per Yunier patient is lethargic and tachypnic with o2 saturation at 85% on non rebreather and high flow. Yunier called ER MD to intubate patient. 2348- Patient successfully intubated and started on diprivan for sedation. will continue to monitor.
[2020-09-23 23:43] LABS: ABG BASE EXCESS -1.2 mmol/L; ABG OXYGEN SATURATION 87.7 % (92.0-98.5); ABG PCO2 40.4 mmHg (35.0-45.0); ABG PH 7.387 (7.350-7.450); ABG PO2 53.6 mmHg (75.0-100.0); COHb 0.9 % (0.5-1.5); MetHb 0.2 % (0.0-1.5); O2Hb 86.7 % (94.0-97.0); SITE, ABG Right Radial; VENT MODE, BG HFNC+NRB 60L 100%
[2020-09-24] VITALS (71 sets, daily range): BP systolic 70–156; BP diastolic 34–93
[2020-09-24] MEDS ORDERED: PROPOFOL 100 ML IV PRN
--- NOTE | 2020-09-24 | NUR ---
checked temp in the auxilary and found to have temp of 102.6. rechecked twice in both auxilary areas and received same temp. Started cooling measures with ice packs and tylenol. 629- rechecked temp via auxilary and found temp to be 98.8. will continue to monitor.
--- NOTE | 2020-09-24 00:21 | NUR ---
pt intubated by er physician due to increased wob, increased rr, sob, decreased spo2 and aloc. 7.5 ett@25cm at this time. vent settings ac 26 450 100% +10. pt sedated at this time with a small amount of thick bloody morris secretions. pt has increased hr and increased pip at this time Addendum: 09/24/20 at 0024 by JASMIN HINOJOSA RT Amended: Links added.
[2020-09-24] MEDS ORDERED: MORPHINE SULFATE INJ 4 MG/ML DISP.SYRIN IV PRN ×2 (00:30→09:00)
--- NOTE | 2020-09-24 01:07 | NUR ---
aviation technician aircraft notified RN that patients that are rule out covid (suspected) or covid (+) will not get test per Dr. Berry. will endorse to AM RN to verify with Dr. Berry if patient needs ultrasound of bilateral extremities for rule out DVT.
[2020-09-24] MEDS: PANTOPRAZOLE 40 MG in IV NS 0.9% 100 ML IV SCH ×5 (02:10→21:12)
[2020-09-24 02:21] LABS: ABG BASE EXCESS 1.6 mmol/L; ABG OXYGEN SATURATION 93.8 % (92.0-98.5); ABG PCO2 38.1 mmHg (35.0-45.0); ABG PH 7.446 (7.350-7.450); ABG PO2 64.9 mmHg (75.0-100.0); COHb 0.9 % (0.5-1.5); MetHb 0.4 % (0.0-1.5); O2Hb 92.6 % (94.0-97.0); PEEP,BG 10 cm H2O; SITE, ABG Right Radial; VENT MODE, BG ac 26 450 100 +10; VT, ABG 450 mL
[2020-09-24] MEDS: PROPOFOL 100 ML IV PRN ×9 (03:41→22:54)
[2020-09-24] MEDS: ACETAMINOPHEN 325 MG TABLET PO PRN ×2 (04:15→10:00)
[2020-09-24 04:25] LABS: BASOPHILS # (AUTO) 0.1 /CMM (0.0-0.2); BASOPHILS % (AUTO) 0.8 % (0.0-2.0); EOSINOPHILS % (AUTO) 1.7 % (0.0-6.0); HEMATOCRIT 26 % (39-51); HEMOGLOBIN 8.7 g/dL (13.5-17.5); LYMPHOCYTES # (AUTO) 0.9 /CMM (0.8-4.8); LYMPHOCYTES % (AUTO) 7.9 % (20.0-44.0); MEAN CORPUSCULAR HGB CONC 33 g/dl (31.0-36.0); MEAN CORPUSCULAR VOLUME 94 fL (80-96); MONOCYTES # (AUTO) 0.9 /CMM (0.1-1.30); MONOCYTES % (AUTO) 7.6 % (2.0-12.0); NEUTROPHILS # (AUTO) 9.6 /CMM (1.8-8.9); PLATELET COUNT (AUTO) 246 /CMM (150-450); RED BLOOD CELL COUNT(AUTO) 2.79 MIL/uL (4.5-6.0); WHITE BLOOD COUNT (AUTO) 11.7 K/uL (4.3-11.0)
[2020-09-24 04:48] LABS: CALCIUM, SERUM 7.4 mg/dL (8.5-10.1); CREATININE 1.1 mg/dL (0.6-1.3); MAGNESIUM 2.1 mg/dL (1.8-2.4); PHOSPHORUS 1.8 mg/dL (2.5-4.9)
[2020-09-24] MEDS: MEROPENEM 1 G in IV NS 0.9% 100 ML IV SCH ×3 (05:51→20:39)
[2020-09-24] MEDS: DIVALPROEX SODIUM 125 MG CAP.SPRINK PO SCH ×3 (05:51→20:56)
[2020-09-24] MEDS: VANCOMYCIN 1 GM in IV D5W 250 ML IV SCH ×2 (05:51→22:02)
--- NOTE | 2020-09-24 07:53 | NUR ---
RT Pt received orally intubated on mechanical ventilation with noted settings. Pt is currently sedated at this time. Vent alarms are set and audible with BVM by bedside. Vent is plugged into red outlet. No SOB or respiratory distress noted at this time. Addendum: 09/24/20 at 1440 by OMA YADAV RT Amended: Links added.
[2020-09-24 08:04] LABS: ABG BASE EXCESS 1.5 mmol/L; ABG OXYGEN SATURATION 87.7 % (92.0-98.5); ABG PH 7.422 (7.350-7.450); ABG PO2 50.5 mmHg (75.0-100.0); AaDO2 621.5 mmHg; COHb 0.5 % (0.5-1.5); MetHb 0.2 % (0.0-1.5); O2Hb 87.1 % (94.0-97.0); PEEP,BG 10 cm H2O; SITE, ABG Right Radial; VT, ABG 450 mL
[2020-09-24] MEDS: LORAZEPAM INJ 2 MG/ML VIAL IV PRN (08:11)
[2020-09-24] MEDS ORDERED: POTASSIUM PHOSPHATE MM 15 MMOL in IV NS 0.9% 250 ML IV SCH (09:30)
[2020-09-24] MEDS: OLANZAPINE ZYDIS 5 MG TAB.RAPDIS SL SCH ×2 (09:51→21:08)
[2020-09-24] MEDS: MISOPROSTOL 100 MCG TABLET PO SCH ×4 (09:51→20:39)
[2020-09-24] MEDS: THIAMINE HCL 100 MG TABLET PO SCH (09:51)
[2020-09-24] MEDS: CHOLECALCIFEROL 1,000 UNIT TABLET (VIT D3) PO SCH (09:51)
[2020-09-24] MEDS: ASCORBIC ACID 500 MG TABLET PO SCH (09:51)
[2020-09-24] MEDS: HYDROCORTISONE SOD SUCCINATE 100 MG/2 ML VIAL IV SCH ×3 (09:51→20:56)
[2020-09-24] MEDS: POTASSIUM CL. PREMIX PERIPHER. 50 ML IV SCH ×5 (09:52→16:27)
[2020-09-24] MEDS: ZINC SULFATE 220 MG CAPSULE PO SCH (09:52)
--- NOTE | 2020-09-24 10:26 | NUR ---
per RN, pt is still unstable and unable to do CT scan today
[2020-09-24] MEDS: PHENYLEPHRINE 50 MG in IV NS 0.9% 245 ML IV PRN ×2 (10:30→22:17)
[2020-09-24] MEDS ORDERED: ETOMIDATE 2 MG/ML VIAL ONE (10:55)
[2020-09-24] MEDS ORDERED: SUCCINYLCHOLINE CHLORIDE 20 MG/ML VIAL ONE (10:55)
[2020-09-24] MEDS: FENTANYL CITRAT IV 2,500 MCG in IV NS 0.9% 200 ML IV PRN (14:07)
[2020-09-24] MEDS: MICAFUNGIN SODIUM 100 MG in IV NS 0.9% 100 ML IV SCH (20:24)
[2020-09-24] MEDS ORDERED: VANCOMYCIN 1 GM in IV D5W 250 ML IV SCH (21:00)
[2020-09-24] MEDS ORDERED: PHENYLEPHRINE 10 MG/ML VIAL ONE (22:06)
--- NOTE | 2020-09-24 23:10 | NUR ---
RN NOTES FIO2 CHANGED TO 60% PER RT. SATURATION BETWEEN 95-98% TOLERATED. WILL CONTINUE TO MONITOR.
[2020-09-25] VITALS (94 sets, daily range): BP systolic 88–147; BP diastolic 55–104
--- NOTE | 2020-09-25 00:15 | NUR ---
RN NOTES RECEIVED A CALL FROM LAB SPOKE TO AUGUST THAT PATIENT PCR IS NEGATIVE.
[2020-09-25] MEDS: PANTOPRAZOLE 40 MG in IV NS 0.9% 100 ML IV SCH ×5 (02:24→23:33)
[2020-09-25 05:15] LABS: ABG BASE EXCESS -1.7 mmol/L; ABG OXYGEN SATURATION 92.3 % (92.0-98.5); ABG PCO2 37.7 mmHg (35.0-45.0); ABG PO2 64.2 mmHg (75.0-100.0); AaDO2 322.1 mmHg; COHb 0.5 % (0.5-1.5); MetHb 0.1 % (0.0-1.5); O2Hb 91.7 % (94.0-97.0); PEEP,BG 10 cm H2O; SITE, ABG Right Radial; VENT MODE, BG AC 26 450 60% +10; VT, ABG 450 mL
[2020-09-25] MEDS: MEROPENEM 1 G in IV NS 0.9% 100 ML IV SCH ×3 (05:36→21:13)
[2020-09-25] MEDS: HYDROCORTISONE SOD SUCCINATE 100 MG/2 ML VIAL IV SCH ×3 (05:36→20:45)
[2020-09-25] MEDS: DIVALPROEX SODIUM 125 MG CAP.SPRINK PO SCH ×3 (05:37→20:45)
[2020-09-25] MEDS: PROPOFOL 100 ML IV PRN ×3 (06:55→17:57)
--- NOTE | 2020-09-25 07:30 | NUR ---
RN NOTES PATIENT IS ORALLY INTUBATED WITH ETT 7.5 AND 24 CM AT LIP LINE WITH VENT SETTING AC 26 TV 450 FIO2 60% PEEP 10 TOLERATED WELL. SATURATION BETWEEN 94-96%. AFEBRILE THROUGHOUT THE SHIFT. SR/ ST ON TELE MONITOR. SEDATED WITH DIPRIVAN AND FENTANYL TITRATED PROTOCOL ORDERED. IV SITE ON SERINA WITH NEOSYNEPRINE TITRATED ORDERED. PROTONIX DRIP. AND CVP LEBELED AND CALIBRATED. REMAINED NPO NGT KEPT INTACT AND PATENTCY ALWAYS CHECKED. MEDICINE ADMINISTERED ORDERED AND TOLERATED WELL WITH HOB ELEVATED. ARREGUIN CATH DRAINED VIA GRAVITY WITH GOOD URINE OUTPUT. KEPT PT CLEAN AND DRY. ENDORSED CONTINUITY OF CARE.
[2020-09-25] MEDS: LORAZEPAM INJ 2 MG/ML VIAL IV PRN (08:38)
[2020-09-25] MEDS: OLANZAPINE ZYDIS 5 MG TAB.RAPDIS SL SCH ×2 (09:41→21:13)
[2020-09-25] MEDS: THIAMINE HCL 100 MG TABLET PO SCH (09:41)
[2020-09-25] MEDS: MISOPROSTOL 100 MCG TABLET PO SCH ×4 (09:41→20:37)
[2020-09-25] MEDS: CHOLECALCIFEROL 1,000 UNIT TABLET (VIT D3) PO SCH (09:41)
[2020-09-25] MEDS: ASCORBIC ACID 500 MG TABLET PO SCH (09:41)
[2020-09-25] MEDS: ZINC SULFATE 220 MG CAPSULE PO SCH (10:32)
[2020-09-25] MEDS: VANCOMYCIN 1 GM in IV D5W 250 ML IV SCH ×2 (10:53→21:00)
[2020-09-25] MEDS: JEVITY 1.2 CAL 1,000 ML BOTTLE GT PRN (13:10)
[2020-09-25] MEDS: FENTANYL CITRAT IV 2,500 MCG in IV NS 0.9% 200 ML IV PRN (14:32)
[2020-09-25] MEDS: PROSOURCE / PROSTAT (PYXIS) 30 ML UDC GT SCH (16:42)
[2020-09-25] MEDS ORDERED: POTASSIUM CHLORIDE 20 MEQ POWDER PACKET PEG ONE (17:00)
[2020-09-25] MEDS: MICAFUNGIN SODIUM 100 MG in IV NS 0.9% 100 ML IV SCH (20:37)
[2020-09-25] MEDS ORDERED: IV NS 0.9% 500 ML IV ONE (23:30)
[2020-09-26] VITALS (50 sets, daily range): BP systolic 87–127; BP diastolic 52–86
[2020-09-26] MEDS: FENTANYL CITRAT IV 2,500 MCG in IV NS 0.9% 200 ML IV PRN ×3 (00:08→23:03)
[2020-09-26 04:28] LABS: BASOPHILS % (AUTO) 0.1 % (0.0-2.0); EOSINOPHILS % (AUTO) 0.1 % (0.0-6.0); HEMATOCRIT 27 % (39-51); LYMPHOCYTES # (AUTO) 0.9 /CMM (0.8-4.8); LYMPHOCYTES % (AUTO) 8.5 % (20.0-44.0); MEAN CORPUSCULAR HGB CONC 33 g/dl (31.0-36.0); MEAN CORPUSCULAR VOLUME 94 fL (80-96); MONOCYTES # (AUTO) 0.6 /CMM (0.1-1.30); MONOCYTES % (AUTO) 5.6 % (2.0-12.0); NEUTROPHILS # (AUTO) 9.2 /CMM (1.8-8.9); NEUTROPHILS % (AUTO) 85.7 % (43.0-81.0); PLATELET COUNT (AUTO) 361 /CMM (150-450); RED BLOOD CELL COUNT(AUTO) 2.91 MIL/uL (4.5-6.0); WHITE BLOOD COUNT (AUTO) 10.8 K/uL (4.3-11.0)
[2020-09-26] MEDS: PROPOFOL 100 ML IV PRN ×2 (04:37→08:14)
[2020-09-26] MEDS: PANTOPRAZOLE 40 MG in IV NS 0.9% 100 ML IV SCH ×4 (04:38→20:16)
[2020-09-26] MEDS: MEROPENEM 1 G in IV NS 0.9% 100 ML IV SCH ×3 (04:39→20:16)
[2020-09-26] MEDS: DIVALPROEX SODIUM 125 MG CAP.SPRINK PO SCH ×3 (04:41→21:05)
[2020-09-26] MEDS: HYDROCORTISONE SOD SUCCINATE 100 MG/2 ML VIAL IV SCH ×3 (04:41→21:04)
[2020-09-26 05:06] LABS: CALCIUM, SERUM 7.3 mg/dL (8.5-10.1); CREATININE 1.2 mg/dL (0.6-1.3); MAGNESIUM 2.5 mg/dL (1.8-2.4); POTASSIUM 3.8 mmol/L (3.5-5.1)
[2020-09-26] MEDS: IV NS 0.9% 250 ML IV PRN (05:18)
[2020-09-26] MEDS: IV NS 0.9% 500 ML IV PRN (05:19)
--- NOTE | 2020-09-26 07:05 | NUR ---
RN NOTES RECEIVED PT ON BED, ORALLY INTUBATED WITH ETT 7.5 AND 24 CM AT LIP LINE WITH VENT SETTING AC 26 TV 450 FIO2 60% PEEP 10 TOLERATED WELL. SATURATION WNL, SR/ ST ON TELE MONITOR. SEDATED WITH DIPRIVAN AND FENTANYL TITRATED PROTOCOL ORDERED. PROTONIX DRIP. AND CVP LEBELED AND CALIBRATED. NGT FEEDING AT 10CC/HR RUNNING , TOLERATING WELL, HOB ELEVATED. ARREGUIN CATH DRAINED VIA GRAVITY WITH GOOD URINE OUTPUT. KEPT PT CLEAN AND DRY. [facility]
--- NOTE | 2020-09-26 07:30 | NUR ---
RN NOTES PATIENT REMAINED ORALLY INTUBATED WITH ETT 7.5 AND 24 CM AT LIP LINE WITH VENT SETTING AC 26 TV 450 FIO2 60% PEEP 10 TOLERATED WELL. PATIENT IS RESPONSIVE TO TACTILE AND VERBAL STIMULI FREQ. REMINDER NEEDED. SATURATION WELL. NO ACUTE RESPIRATORY DISTRESS. AFEBRILE THROUGHOUT THE SHIFT. SR/ ST ON TELE MONITOR. SEDATED WITH DIPRIVAN AND FENTANYL TITRATED PROTOCOL ORDERED. IV SITE ON SERINA WITH PROTONIX DRIP. AND CVP LEBELLED AND CALIBRATED. NGT INTACT KEPT INTACT AND PATENTCY ALWAYS CHECKED. MEDICINE ADMINISTERED ORDERED AND TOLERATED WELL WITH HOB ELEVATED. PATIENT ALSO HAVE ARREGUIN CATH DRAINED VIA GRAVITY WITH GOOD URINE OUTPUT. KEPT PT CLEAN AND DRY. ENDORSED CONTINUITY OF CARE TO AM NURSE.
[2020-09-26 07:56] LABS: ABG BASE EXCESS -1.4 mmol/L; ABG PCO2 38.7 mmHg (35.0-45.0); ABG PH 7.397 (7.350-7.450); ABG PO2 104.8 mmHg (75.0-100.0); AaDO2 280.4 mmHg; COHb 0.9 % (0.5-1.5); MetHb 0.3 % (0.0-1.5); O2Hb 96.8 % (94.0-97.0); PEEP,BG 10 cm H2O; SITE, ABG Right Radial; VT, ABG 450 mL
[2020-09-26] MEDS: NEUTRA PHOS 1 POWD.PACKET PO SCH ×2 (08:29→16:40)
[2020-09-26] MEDS: OLANZAPINE ZYDIS 5 MG TAB.RAPDIS SL SCH ×2 (08:32→21:07)
[2020-09-26] MEDS: ZINC SULFATE 220 MG CAPSULE PO SCH (08:32)
[2020-09-26] MEDS: THIAMINE HCL 100 MG TABLET PO SCH (08:32)
[2020-09-26] MEDS: CHOLECALCIFEROL 1,000 UNIT TABLET (VIT D3) PO SCH (08:32)
[2020-09-26] MEDS: ASCORBIC ACID 500 MG TABLET PO SCH (08:32)
[2020-09-26] MEDS: PROSOURCE / PROSTAT (PYXIS) 30 ML UDC GT SCH ×2 (08:37→16:41)
[2020-09-26] MEDS: MISOPROSTOL 100 MCG TABLET PO SCH ×4 (08:37→21:04)
--- NOTE | 2020-09-26 09:21 | NUR ---
RN NOTES DR FRIEDMAN NOTIFIED REGARDING HIGH TRIGLYCERIDE , ORDER RECEIVED TO CHANGE DIPRIVAN TO VERSED .
[2020-09-26] MEDS: MIDAZOLAM HCL 100 MG in IV NS 0.9% 80 ML IV PRN ×2 (10:39→23:09)
[2020-09-26] MEDS: JEVITY 1.2 CAL 1,000 ML BOTTLE GT PRN (17:58)
--- NOTE | 2020-09-26 18:00 | NUR ---
RN NOTES PT REMANINS INTUBATED AND SEDATED , ON FENTANYL AND VERSED FOR SEDATION , VSS STABLE, WILL ENDORSE TO TOLL OPERATOR NURSE FOR CONTINITUY OF CARE
[2020-09-26] MEDS: MICAFUNGIN SODIUM 100 MG in IV NS 0.9% 100 ML IV SCH (21:04)
[2020-09-26] MEDS: VANCOMYCIN 0.75 GM in IV D5W 250 ML IV SCH (21:30)
[2020-09-27] VITALS (48 sets, daily range): BP systolic 106–147; BP diastolic 60–98
[2020-09-27] MEDS: PANTOPRAZOLE 40 MG in IV NS 0.9% 100 ML IV SCH ×5 (00:35→19:45)
[2020-09-27] MEDS: IV NS 0.9% 250 ML IV PRN (03:57)
[2020-09-27] MEDS: IV NS 0.9% 500 ML IV PRN (03:58)
[2020-09-27] MEDS: MEROPENEM 1 G in IV NS 0.9% 100 ML IV SCH ×3 (05:12→19:45)
[2020-09-27] MEDS: DIVALPROEX SODIUM 125 MG CAP.SPRINK PO SCH ×3 (05:14→20:22)
[2020-09-27] MEDS: HYDROCORTISONE SOD SUCCINATE 100 MG/2 ML VIAL IV SCH ×3 (05:14→21:44)
[2020-09-27 05:19] LABS: BASOPHILS % (AUTO) 0.1 % (0.0-2.0); EOSINOPHILS % (AUTO) 0.1 % (0.0-6.0); HEMATOCRIT 25 % (39-51); HEMOGLOBIN 8.3 g/dL (13.5-17.5); LYMPHOCYTES # (AUTO) 0.7 /CMM (0.8-4.8); LYMPHOCYTES % (AUTO) 9.6 % (20.0-44.0); MEAN CORPUSCULAR HGB CONC 33 g/dl (31.0-36.0); MEAN CORPUSCULAR VOLUME 94 fL (80-96); MONOCYTES # (AUTO) 0.8 /CMM (0.1-1.30); MONOCYTES % (AUTO) 9.7 % (2.0-12.0); NEUTROPHILS # (AUTO) 6.2 /CMM (1.8-8.9); NEUTROPHILS % (AUTO) 80.5 % (43.0-81.0); PLATELET COUNT (AUTO) 425 /CMM (150-450); WHITE BLOOD COUNT (AUTO) 7.7 K/uL (4.3-11.0)
[2020-09-27 05:50] LABS: CALCIUM, SERUM 7.2 mg/dL (8.5-10.1); CREATININE 1.2 mg/dL (0.6-1.3); MAGNESIUM 2.5 mg/dL (1.8-2.4); PHOSPHORUS 2.7 mg/dL (2.5-4.9); POTASSIUM 3.9 mmol/L (3.5-5.1)
[2020-09-27] MEDS: JEVITY 1.2 CAL 1,000 ML BOTTLE GT PRN (06:29)
--- NOTE | 2020-09-27 07:00 | NUR ---
RN NOTES ORALLY INTUBATED WITH ETT 7.5 AND 24 CM AT LIP LINE WITH VENT SETTING AC 24 TV 450 FIO2 60% PEEP 8 TOLERATED WELL. PATIENT IS RESPONSIVE TO TACTILE AND VERBAL STIMULI. SATURATION WELL. AGITATION PRESENT AND TRIED TO PULL OUT ETT. AFEBRILE THROUGHOUT THE SHIFT. SR/ ST ON TELE MONITOR. SEDATED WITH FENTANYL AND VERSED TITRATED PROTOCOL ORDERED. IV SITE ON SERINA WITH PROTONIX DRIP. AND CVP LEBELLED AND CALIBRATED. IV ATB ADMINSITERED ORDERED . NO ASE NOTED. ARREGUIN CATH DRAINED VIA GRAVITY WITH GOOD URINE OUTPUT. KEPT PT CLEAN AND DRY.
[2020-09-27] MEDS: CHOLECALCIFEROL 1,000 UNIT TABLET (VIT D3) PO SCH (09:00)
[2020-09-27] MEDS: OLANZAPINE ZYDIS 5 MG TAB.RAPDIS SL SCH ×2 (09:00→20:22)
[2020-09-27] MEDS: ZINC SULFATE 220 MG CAPSULE PO SCH (09:00)
[2020-09-27] MEDS: MISOPROSTOL 100 MCG TABLET PO SCH ×4 (09:00→21:45)
[2020-09-27] MEDS: ASCORBIC ACID 500 MG TABLET PO SCH (09:00)
[2020-09-27] MEDS: VANCOMYCIN 0.75 GM in IV D5W 250 ML IV SCH ×2 (09:01→21:44)
[2020-09-27] MEDS: THIAMINE HCL 100 MG TABLET PO SCH (09:01)
[2020-09-27] MEDS: PROSOURCE / PROSTAT (PYXIS) 30 ML UDC GT SCH ×2 (09:01→17:08)
[2020-09-27] MEDS: LORAZEPAM INJ 2 MG/ML VIAL IV PRN (10:20)
[2020-09-27] MEDS: FENTANYL CITRAT IV 2,500 MCG in IV NS 0.9% 200 ML IV PRN (11:48)
[2020-09-27 13:29] LABS: ABG BASE EXCESS -0.6 mmol/L; ABG OXYGEN SATURATION 98.2 % (92.0-98.5); ABG PCO2 45.8 mmHg (35.0-45.0); ABG PH 7.355 (7.350-7.450); ABG PO2 125.8 mmHg (75.0-100.0); AaDO2 324.1 mmHg; COHb 0.3 % (0.5-1.5); MetHb 0.4 % (0.0-1.5); O2Hb 97.5 % (94.0-97.0); PEEP,BG 8 cm H2O; SITE, ABG Left Radial; VENT MODE, BG AC 70%; VT, ABG 450 mL
[2020-09-27] MEDS: MIDAZOLAM HCL 100 MG in IV NS 0.9% 80 ML IV PRN (13:49)
--- NOTE | 2020-09-27 18:40 | NUR ---
RN NOTE Received patient in am with mild agitation. With ETT to vent, 70% +8. With left NGT intact. TF tolerated, kept HOB elevated. With Lagunas cath intact, noted with praveen colored urine with sediments. ST 120's. SERINA PICC intact, on Fentanyl 3mcg and Versed 4mcg. Titrated Versed up for noted with 160's HR and severe agitation. At 0830 Dr. Velazquez in the unit made aware, abort weaning trial and may increase Versed up to 10mcg per MD. On Protonix drip for episode of GIB, ongoing. Dr. Cruz visited in the afternoon, updated re: patient's condition and about the weaning trial unable to render. S/E by JOSE Cerno, made aware re: Dr. Cruz's request for dentist/managing consultant re: patient braces, said she will try to ask the dentist visiting the facility. Noted with soft brown BM around 1500, no evidence of active bleeding. Cleaned patient and rendered bed bath. At 1830 remained comfortable on Versed 8 and Fentanyl 3. Now on SR 90's. Kept clean, warm and dry.
--- NOTE | 2020-09-27 20:22 | NUR ---
ICU/SOLAR INSTALLER THERE IS AN ORDER TO HOLD DEPAKOTE AND ZYPREXA WHILE ON SEDATION. THESE WERE HELD FOR THIS SHIFT.
[2020-09-27] MEDS: MICAFUNGIN SODIUM 100 MG in IV NS 0.9% 100 ML IV SCH (20:33)
[2020-09-27] MEDS: ACETAMINOPHEN 325 MG TABLET PO PRN (22:11)
--- NOTE | 2020-09-27 23:00 | NUR ---
ICU/BOBBIN DISKER TYLENOL WAS GIVEN, PT HAD TEMP 100.5, COOLING MEASURES WERE DONE. WILL MONITOR THIS PT.
[2020-09-28] VITALS (47 sets, daily range): BP systolic 122–177; BP diastolic 79–119
--- NOTE | 2020-09-28 00:30 | NUR ---
ICU/PRESS SET UP STOOL SENT FOR C-DIFF, PT HAS HAD 3X WATERY STOOLS. THIS WAS SENT TO LAB FOR C-DIFF.
[2020-09-28] MEDS: FENTANYL CITRAT IV 2,500 MCG in IV NS 0.9% 200 ML IV PRN ×2 (00:44→12:45)
[2020-09-28] MEDS: MIDAZOLAM HCL 100 MG in IV NS 0.9% 80 ML IV PRN ×3 (00:46→20:28)
[2020-09-28] MEDS: PANTOPRAZOLE 40 MG in IV NS 0.9% 100 ML IV SCH ×3 (00:47→10:47)
[2020-09-28] MEDS: LORAZEPAM INJ 2 MG/ML VIAL IV PRN ×2 (00:59→20:33)
--- NOTE | 2020-09-28 01:30 | NUR ---
ICU/HAND STAPLER ATIVAN WAS GIVEN FOR AGITATION BY CHARGE NURSE. WILL MONITOR THIS PT.
--- NOTE | 2020-09-28 04:00 | NUR ---
ICU/CAFE ATTENDANT PT WAS AGITATED. NOTIFED CHARGE NURSE WHO THEN INCREASED THE VERSED TO 10 FROM 8. WILL MONITOR THIS PT AND HIS AGITATION.
[2020-09-28] MEDS: JEVITY 1.2 CAL 1,000 ML BOTTLE GT PRN (04:34)
[2020-09-28] MEDS: DIVALPROEX SODIUM 125 MG CAP.SPRINK PO SCH ×3 (04:38→19:50)
[2020-09-28] MEDS: MEROPENEM 1 G in IV NS 0.9% 100 ML IV SCH ×3 (04:43→21:19)
[2020-09-28] MEDS: HYDROCORTISONE SOD SUCCINATE 100 MG/2 ML VIAL IV SCH ×3 (04:43→21:11)
[2020-09-28 08:58] LABS: BASOPHILS % (AUTO) 0.1 % (0.0-2.0); EOSINOPHILS % (AUTO) 0.1 % (0.0-6.0); HEMATOCRIT 27 % (39-51); HEMOGLOBIN 8.7 g/dL (13.5-17.5); LYMPHOCYTES # (AUTO) 0.8 /CMM (0.8-4.8); LYMPHOCYTES % (AUTO) 8.1 % (20.0-44.0); MEAN CORPUSCULAR HGB CONC 32 g/dl (31.0-36.0); MEAN CORPUSCULAR VOLUME 95 fL (80-96); MONOCYTES # (AUTO) 0.9 /CMM (0.1-1.30); MONOCYTES % (AUTO) 9.9 % (2.0-12.0); NEUTROPHILS # (AUTO) 7.7 /CMM (1.8-8.9); NEUTROPHILS % (AUTO) 81.8 % (43.0-81.0); PLATELET COUNT (AUTO) 454 /CMM (150-450); RED BLOOD CELL COUNT(AUTO) 2.84 MIL/uL (4.5-6.0); WHITE BLOOD COUNT (AUTO) 9.4 K/uL (4.3-11.0)
[2020-09-28] MEDS: OLANZAPINE ZYDIS 5 MG TAB.RAPDIS SL SCH ×2 (09:00→19:50)
[2020-09-28] MEDS: ASCORBIC ACID 500 MG TABLET PO SCH (09:26)
[2020-09-28] MEDS: CHOLECALCIFEROL 1,000 UNIT TABLET (VIT D3) PO SCH (09:26)
[2020-09-28] MEDS: ZINC SULFATE 220 MG CAPSULE PO SCH (09:26)
[2020-09-28] MEDS: MISOPROSTOL 100 MCG TABLET PO SCH ×4 (09:26→21:11)
[2020-09-28] MEDS: THIAMINE HCL 100 MG TABLET PO SCH (09:26)
[2020-09-28] MEDS ORDERED: LORAZEPAM INJ 2 MG/ML VIAL IV PRN (09:30)
[2020-09-28] MEDS: VANCOMYCIN 0.75 GM in IV D5W 250 ML IV SCH ×2 (09:30→22:41)
[2020-09-28] MEDS: FUROSEMIDE 40 MG/4 ML VIAL IV SCH ×2 (09:32→12:50)
[2020-09-28] MEDS: PROSOURCE / PROSTAT (PYXIS) 30 ML UDC GT SCH ×2 (09:32→17:29)
[2020-09-28 12:15] LABS: POTASSIUM 4.2 mmol/L (3.5-5.1)
[2020-09-28 14:15] LABS: LYMPHOCYTES % (MANUAL) 9 % (16-48); MONOCYTES % (MANUAL) 7 % (0-11.0); MYELOCYTES % 4 % (0-0); NEUTROPHILS % (MANUAL) 80 (42-76)
[2020-09-28 14:30] LABS: CALCIUM, SERUM 7.8 mg/dL (8.5-10.1); CREATININE 1.1 mg/dL (0.6-1.3)
--- NOTE | 2020-09-28 19:04 | NUR ---
RN NOTE Noted with episode of agitation in am, woke up in max dose Versed 10 and Fentanyl 3, HR 130's, Dr. Velazquez in the unit with order to give Ativan 1mg now. Eventually Dr. Velazquez changed order to Ativan 2mg q1 PRN for agitation. Noted with 1 loose BM in am, no more in afternoon, no any significant changes noted in the afternoon. Kept clean, warm and dry. Remained on vent with settings as ff: AC 26, 450, 55, +8.
[2020-09-28] MEDS: MICAFUNGIN SODIUM 100 MG in IV NS 0.9% 100 ML IV SCH (20:33)
[2020-09-28] MEDS: PANTOPRAZOLE 40 MG VIAL IV SCH (21:11)
[2020-09-28] MEDS: ACETAMINOPHEN 325 MG TABLET PO PRN (21:12)
--- NOTE | 2020-09-28 21:49 | NUR ---
ICU/SALT MAKER TEMP IS 101.6 TEMPORAL, NOTIFIED CHARGE NURSE WHO THEN PLACED ORDER FOR BLOOD CULTURE, URINE CULTURE, AND SPUTUM CULTURE. WILL GIVE TYLENOL, AND ICE BATH TO HELP REDUCE FEVER.
[2020-09-29] VITALS (29 sets, daily range): BP systolic 110–168; BP diastolic 66–112
--- NOTE | 2020-09-29 | NUR ---
ICU/MARINE FIREMAN TYLENOL, COOLING MEASURES ALONG WITH COOLING BLANKET APPLIED TO PT. ALSO LAB COLLECTED THE BLOOD CULTURES, SPUTUM CULTURE COLLECTED BY RT, AND THE URINE CULTURE COLLECTED FROM ARREGUIN. WILL MONITOR THIS PT.
[2020-09-29] MEDS: FENTANYL CITRAT IV 2,500 MCG in IV NS 0.9% 200 ML IV PRN ×2 (00:16→13:17)
[2020-09-29] MEDS: MEROPENEM 1 G in IV NS 0.9% 100 ML IV SCH ×3 (03:43→20:59)
[2020-09-29] MEDS: IV NS 0.9% 250 ML IV PRN (03:44)
[2020-09-29] MEDS: HYDROCORTISONE SOD SUCCINATE 100 MG/2 ML VIAL IV SCH ×3 (03:44→21:34)
[2020-09-29] MEDS: DIVALPROEX SODIUM 125 MG CAP.SPRINK PO SCH ×3 (03:44→21:00)
[2020-09-29] MEDS: JEVITY 1.2 CAL 1,000 ML BOTTLE GT PRN (03:45)
[2020-09-29] MEDS: ACETAMINOPHEN 325 MG TABLET PO PRN (04:20)
--- NOTE | 2020-09-29 06:00 | NUR ---
ICU/RADIOLOGICAL EQUIPMENT SPECIALIST COOLING MEASURES ALONG WITH TYLENOL GIVEN TO PT WILL MONITOR THIS PT.
[2020-09-29 06:13] LABS: ABG BASE EXCESS 8.7 mmol/L; ABG OXYGEN SATURATION 95.3 % (92.0-98.5); ABG PH 7.476 (7.350-7.450); ABG PO2 72.8 mmHg (75.0-100.0); AaDO2 268.2 mmHg; COHb 0.3 % (0.5-1.5); MetHb 0.3 % (0.0-1.5); O2Hb 94.7 % (94.0-97.0); PEEP,BG 8 cm H2O; SITE, ABG Right Radial; VENT MODE, BG ac 26 450 55%+8; VT, ABG 450 mL
[2020-09-29 06:17] LABS: BASOPHILS % (AUTO) 0.3 % (0.0-2.0); EOSINOPHILS % (AUTO) 1.3 % (0.0-6.0); HEMATOCRIT 28 % (39-51); HEMOGLOBIN 8.9 g/dL (13.5-17.5); LYMPHOCYTES # (AUTO) 2.4 /CMM (0.8-4.8); LYMPHOCYTES % (AUTO) 18.1 % (20.0-44.0); MEAN CORPUSCULAR HGB CONC 32 g/dl (31.0-36.0); MEAN CORPUSCULAR VOLUME 95 fL (80-96); MONOCYTES # (AUTO) 1.5 /CMM (0.1-1.30); MONOCYTES % (AUTO) 11.3 % (2.0-12.0); NEUTROPHILS # (AUTO) 9.4 /CMM (1.8-8.9); PLATELET COUNT (AUTO) 525 /CMM (150-450); RED BLOOD CELL COUNT(AUTO) 2.89 MIL/uL (4.5-6.0); WHITE BLOOD COUNT (AUTO) 13.6 K/uL (4.3-11.0)
[2020-09-29 06:37] LABS: CALCIUM, SERUM 7.9 mg/dL (8.5-10.1); CREATININE 1.1 mg/dL (0.6-1.3); MAGNESIUM 2.4 mg/dL (1.8-2.4); PHOSPHORUS 2.6 mg/dL (2.5-4.9); POTASSIUM 3.4 mmol/L (3.5-5.1)
[2020-09-29] MEDS: MIDAZOLAM HCL 100 MG in IV NS 0.9% 80 ML IV PRN ×2 (06:50→16:49)
[2020-09-29] MEDS: LORAZEPAM INJ 2 MG/ML VIAL IV PRN (07:40)
[2020-09-29] MEDS ORDERED: POTASSIUM CHLORIDE 20 MEQ POWDER PACKET GT SCH (08:30)
[2020-09-29] MEDS: OLANZAPINE ZYDIS 5 MG TAB.RAPDIS SL SCH ×2 (09:00→21:35)
[2020-09-29] MEDS: CHOLECALCIFEROL 1,000 UNIT TABLET (VIT D3) PO SCH (09:57)
[2020-09-29] MEDS: FUROSEMIDE 40 MG/4 ML VIAL IV SCH ×3 (09:57→17:59)
[2020-09-29] MEDS: MISOPROSTOL 100 MCG TABLET PO SCH ×4 (09:58→21:34)
[2020-09-29] MEDS: THIAMINE HCL 100 MG TABLET PO SCH (09:58)
[2020-09-29] MEDS: ASCORBIC ACID 500 MG TABLET PO SCH (09:58)
[2020-09-29] MEDS: PANTOPRAZOLE 40 MG VIAL IV SCH ×2 (09:58→21:34)
[2020-09-29] MEDS: ZINC SULFATE 220 MG CAPSULE PO SCH (09:58)
[2020-09-29] MEDS: NITROGLYCERIN 30 GM TUBE TP SCH ×2 (09:59→21:37)
[2020-09-29] MEDS ORDERED: POTASSIUM CHLORIDE 20 MEQ POWDER PACKET GT ONE (10:00)
[2020-09-29] MEDS: VANCOMYCIN 0.75 GM in IV D5W 250 ML IV SCH ×2 (10:01→22:03)
[2020-09-29] MEDS: PROSOURCE / PROSTAT (PYXIS) 30 ML UDC GT SCH ×2 (10:02→17:59)
[2020-09-29 12:28] LABS: BAND % (MANUAL) 1 % (0.0-5.0); LYMPHOCYTES % (MANUAL) 10 % (16-48); MONOCYTES % (MANUAL) 12 % (0-11.0); MYELOCYTES % 8 % (0-0); NEUTROPHILS % (MANUAL) 69 (42-76)
[2020-09-29] MEDS: HEPARIN SODIUM, PORCINE 5000 UNITS/1 ML VIAL SQ SCH ×2 (13:53→21:34)
[2020-09-29] MEDS: VANCOMYCIN HCL 125 MG/2.5 ML ORAL.SUSP PO SCH (18:00)
[2020-09-29] MEDS: MICAFUNGIN SODIUM 100 MG in IV NS 0.9% 100 ML IV SCH (21:34)
[2020-09-30] VITALS (49 sets, daily range): BP systolic 116–172; BP diastolic 63–108
[2020-09-30] MEDS: VANCOMYCIN HCL 125 MG/2.5 ML ORAL.SUSP PO SCH ×4 (00:09→17:19)
[2020-09-30] MEDS: FENTANYL CITRAT IV 2,500 MCG in IV NS 0.9% 200 ML IV PRN ×3 (00:23→22:42)
[2020-09-30] MEDS: MIDAZOLAM HCL 100 MG in IV NS 0.9% 80 ML IV PRN ×3 (00:24→17:20)
--- NOTE | 2020-09-30 00:30 | NUR ---
RN NOTES INFORMED DR. GARAY REGARDING PATIENT HR WENT DOWN TO 48, BUT THE BP IS HIGH ON 160 TO 170'S AND PATIENT IS DRAINING A LOT OF URINE OUTPUT. FROM ARREGUIN WITH NEW ORDER TO RECHECKED POTASSIUM AND MAGNESIUM NOTED AND CARRIED OUT ORDERS
[2020-09-30 01:37] LABS: MAGNESIUM 2.4 mg/dL (1.8-2.4); POTASSIUM 3.8 mmol/L (3.5-5.1)
[2020-09-30] MEDS: LORAZEPAM INJ 2 MG/ML VIAL IV PRN ×2 (04:24→06:53)
[2020-09-30] MEDS: MEROPENEM 1 G in IV NS 0.9% 100 ML IV SCH ×2 (04:24→12:19)
[2020-09-30] MEDS: HYDROCORTISONE SOD SUCCINATE 100 MG/2 ML VIAL IV SCH ×3 (04:24→20:34)
[2020-09-30] MEDS: DIVALPROEX SODIUM 125 MG CAP.SPRINK PO SCH ×3 (04:24→21:00)
[2020-09-30 04:27] LABS: BASOPHILS % (AUTO) 0.2 % (0.0-2.0); HEMATOCRIT 28 % (39-51); HEMOGLOBIN 9.1 g/dL (13.5-17.5); LYMPHOCYTES # (AUTO) 1.1 /CMM (0.8-4.8); LYMPHOCYTES % (AUTO) 9.1 % (20.0-44.0); MEAN CORPUSCULAR HGB CONC 32 g/dl (31.0-36.0); MEAN CORPUSCULAR VOLUME 95 fL (80-96); MONOCYTES % (AUTO) 8.8 % (2.0-12.0); NEUTROPHILS # (AUTO) 9.5 /CMM (1.8-8.9); NEUTROPHILS % (AUTO) 81.9 % (43.0-81.0); PLATELET COUNT (AUTO) 538 /CMM (150-450); RED BLOOD CELL COUNT(AUTO) 2.96 MIL/uL (4.5-6.0); WHITE BLOOD COUNT (AUTO) 11.6 K/uL (4.3-11.0)
[2020-09-30 04:48] LABS: MAGNESIUM 2.5 mg/dL (1.8-2.4); PHOSPHORUS 3.4 mg/dL (2.5-4.9); POTASSIUM 3.7 mmol/L (3.5-5.1)
[2020-09-30] MEDS: IV NS 0.9% 250 ML IV PRN (05:42)
[2020-09-30] MEDS: IV NS 0.9% 500 ML IV PRN (05:42)
[2020-09-30] MEDS: JEVITY 1.2 CAL 1,000 ML BOTTLE GT PRN (05:42)
[2020-09-30 06:02] LABS: ABG BASE EXCESS 14.4 mmol/L; ABG OXYGEN SATURATION 98.2 % (92.0-98.5); ABG PCO2 52.2 mmHg (35.0-45.0); ABG PH 7.496 (7.350-7.450); ABG PO2 109.7 mmHg (75.0-100.0); AaDO2 224.4 mmHg; COHb 0.2 % (0.5-1.5); MetHb 0.3 % (0.0-1.5); O2Hb 97.7 % (94.0-97.0); PEEP,BG 8 cm H2O; SITE, ABG Left Radial; VENT MODE, BG AC 26 450 55% +8; VT, ABG 450 mL
--- NOTE | 2020-09-30 07:34 | NUR ---
RN NOTES ORALLY INTUBATED WITH ETT 7.5 AND 24 CM AT LIP LINE WITH VENT SETTING AC 24 TV 450 FIO2 55% PEEP 8 TOLERATED WELL. PATIENT IS RESPONSIVE TO TACTILE AND VERBAL STIMULI. SR/ ST ON TELE MONITOR. REMAINED SEDATED WITH FENTANYL AND VERSED TITRATED PROTOCOL ORDERED. ATIVAN GIVEN NEEDED. IV SITE ON SERINA WITH CVP LEBELLED AND CALIBRATED. CONTINUE WITH IV ATB. NO ASE NOTED. ARREGUIN CATH DRAINED VIA GRAVITY WITH GOOD URINE OUTPUT. KEPT PT CLEAN AND DRY. ORAL CARE PROVIDED Q2H WELL TURN AND REPOSITION. KEPT PT COMFORTABLE ON BED.
--- NOTE | 2020-09-30 07:53 | NUR ---
RN NOTES RECEIVED PT ON BED, ORALLY INTUBATED , SEDATED ON FENTANYL AND VERSED, FOLLOWS SIMPLE COMMAND, ON TELE SR- ST, IV SITE ON SERINA CLEAN, DRY AND INTACT, TF AT 50CC/HR RUNNING , NO RESIDUAL NOTED, ARREGUIN CATH DRAINED VIA GRAVITY WITH GOOD URINE OUTPUT. KEPT PT CLEAN AND DRY. SR UP x3, CALL LIGHT WITHIN EASY REACH, WILL CONTINUE TO MONITOR .
[2020-09-30] MEDS: THIAMINE HCL 100 MG TABLET PO SCH (08:24)
[2020-09-30] MEDS: CHOLECALCIFEROL 1,000 UNIT TABLET (VIT D3) PO SCH (08:24)
[2020-09-30] MEDS: ASCORBIC ACID 500 MG TABLET PO SCH (08:24)
[2020-09-30] MEDS: ZINC SULFATE 220 MG CAPSULE PO SCH (08:24)
[2020-09-30] MEDS: PANTOPRAZOLE 40 MG VIAL IV SCH ×2 (08:25→20:34)
[2020-09-30] MEDS: HEPARIN SODIUM, PORCINE 5000 UNITS/1 ML VIAL SQ SCH ×2 (08:26→20:35)
[2020-09-30] MEDS: OLANZAPINE ZYDIS 5 MG TAB.RAPDIS SL SCH ×2 (08:26→21:05)
[2020-09-30] MEDS: MISOPROSTOL 100 MCG TABLET PO SCH ×4 (08:27→20:34)
[2020-09-30] MEDS: PROSOURCE / PROSTAT (PYXIS) 30 ML UDC GT SCH ×2 (08:28→16:30)
[2020-09-30] MEDS: NITROGLYCERIN 30 GM TUBE TP SCH ×2 (08:29→21:04)
[2020-09-30] MEDS: VANCOMYCIN 0.75 GM in IV D5W 250 ML IV SCH (09:34)
--- NOTE | 2020-09-30 18:00 | NUR ---
RN NOTES PT REMANINS INTUBATED , ON VERSED AND FENTANYL FOR SEDATION, TOLERAING FIO2 50 % AND PEEP OF 5 WELL, VSS STABLE, NO SIGNIFICANT CHANGES NOTED ON THIS SHIFT, WILL ENDOSE TO PODIATRY DOCTOR NURSE FOR CONTINUITY OF CARE.
[2020-10-01] VITALS (26 sets, daily range): BP systolic 138–172; BP diastolic 74–108
[2020-10-01] MEDS: MIDAZOLAM HCL 100 MG in IV NS 0.9% 80 ML IV PRN (00:13)
[2020-10-01] MEDS: VANCOMYCIN HCL 125 MG/2.5 ML ORAL.SUSP PO SCH ×5 (00:16→23:33)
[2020-10-01] MEDS: IV NS 0.9% 500 ML IV PRN (02:47)
[2020-10-01] MEDS: JEVITY 1.2 CAL 1,000 ML BOTTLE GT PRN (02:47)
[2020-10-01] MEDS: IV NS 0.9% 250 ML IV PRN (02:47)
[2020-10-01 03:17] LABS: BASOPHILS % (AUTO) 0.2 % (0.0-2.0); HEMATOCRIT 27 % (39-51); HEMOGLOBIN 8.8 g/dL (13.5-17.5); LYMPHOCYTES # (AUTO) 1.3 /CMM (0.8-4.8); LYMPHOCYTES % (AUTO) 13.3 % (20.0-44.0); MEAN CORPUSCULAR HGB CONC 33 g/dl (31.0-36.0); MEAN CORPUSCULAR VOLUME 95 fL (80-96); NEUTROPHILS # (AUTO) 7.6 /CMM (1.8-8.9); NEUTROPHILS % (AUTO) 76.5 % (43.0-81.0); PLATELET COUNT (AUTO) 456 /CMM (150-450); RED BLOOD CELL COUNT(AUTO) 2.84 MIL/uL (4.5-6.0); WHITE BLOOD COUNT (AUTO) 9.9 K/uL (4.3-11.0)
[2020-10-01 03:29] LABS: MAGNESIUM 2.5 mg/dL (1.8-2.4); PHOSPHORUS 3.2 mg/dL (2.5-4.9); POTASSIUM 3.7 mmol/L (3.5-5.1)
[2020-10-01] MEDS: LORAZEPAM INJ 2 MG/ML VIAL IV PRN ×2 (04:47→23:37)
[2020-10-01] MEDS: DIVALPROEX SODIUM 125 MG CAP.SPRINK PO SCH ×3 (05:00→20:59)
[2020-10-01] MEDS: HYDROCORTISONE SOD SUCCINATE 100 MG/2 ML VIAL IV SCH ×3 (05:15→20:54)
--- NOTE | 2020-10-01 07:00 | NUR ---
RN NOTES PATIENT ORALLY INTUBATED ETT AND VENT SETTING OF AC 26 TV450 FIO2 50% AND PEEP5 TOLERATED WELL SATURATION REMAINED >95%. AFEBRILE TMAX 99.4 DEG FHARENHEIGHT. PATIENT REMAINED CALM AND COOPERATIVE WITH MAX OF FENTANYL@ 3 AND VERSED @ 15. NGTF TOLERATED WELL WITH HOB ELEVATED AND FLUSHED ORDERED. KEPT PT CLEAN AND DRY. ORAL CARE PROVIDED, TURNED AND REPOSITIONED Q2H PRN AND PT COMFORTABLE.
[2020-10-01 09:38] LABS: ABG BASE EXCESS 13.8 mmol/L; ABG OXYGEN SATURATION 95.9 % (92.0-98.5); ABG PH 7.504 (7.350-7.450); ABG PO2 79.2 mmHg (75.0-100.0); AaDO2 221.1 mmHg; COHb 0.3 % (0.5-1.5); MetHb 0.1 % (0.0-1.5); O2Hb 95.5 % (94.0-97.0); SITE, ABG Left Radial; VENT MODE, BG simv 4 ps 15 +5 50%
[2020-10-01] MEDS: OLANZAPINE ZYDIS 5 MG TAB.RAPDIS SL SCH ×2 (10:59→21:01)
[2020-10-01] MEDS: PANTOPRAZOLE 40 MG VIAL IV SCH ×2 (11:02→20:54)
[2020-10-01] MEDS: ZINC SULFATE 220 MG CAPSULE PO SCH (11:02)
[2020-10-01] MEDS: CHOLECALCIFEROL 1,000 UNIT TABLET (VIT D3) PO SCH (11:02)
[2020-10-01] MEDS: THIAMINE HCL 100 MG TABLET PO SCH (11:03)
[2020-10-01] MEDS: MISOPROSTOL 100 MCG TABLET PO SCH ×4 (11:03→20:59)
[2020-10-01] MEDS: ASCORBIC ACID 500 MG TABLET PO SCH (11:03)
[2020-10-01] MEDS: NITROGLYCERIN 30 GM TUBE TP SCH ×2 (11:05→21:05)
[2020-10-01] MEDS: PROSOURCE / PROSTAT (PYXIS) 30 ML UDC GT SCH ×2 (11:07→17:44)
[2020-10-01] MEDS: HEPARIN SODIUM, PORCINE 5000 UNITS/1 ML VIAL SQ SCH ×2 (11:08→20:54)
[2020-10-01] MEDS ORDERED: FENTANYL PF 100MCG/2ML AMPUL IV PRN (12:30)
--- NOTE | 2020-10-01 23:44 | NUR ---
RN NOTES PATIENT IS CONFUSED, TRY TO PULL OUT TUBES. AGITATED, KICKING SITTER AND THE NURSE, ATNOMI PRN ADMINSITERED ORDERED. REORIENTATION PROVIDED. TURN AND REPOSITION.
[2020-10-02] VITALS (25 sets, daily range): BP systolic 131–170; BP diastolic 25–109
[2020-10-02] MEDS: LORAZEPAM INJ 2 MG/ML VIAL IV PRN (03:48)
[2020-10-02] MEDS: IV NS 0.9% 250 ML IV PRN (04:03)
[2020-10-02] MEDS: IV NS 0.9% 500 ML IV PRN (04:03)
[2020-10-02 04:46] LABS: BASOPHILS % (AUTO) 0.1 % (0.0-2.0); HEMATOCRIT 28 % (39-51); HEMOGLOBIN 9.1 g/dL (13.5-17.5); LYMPHOCYTES # (AUTO) 1.5 /CMM (0.8-4.8); LYMPHOCYTES % (AUTO) 10.9 % (20.0-44.0); MEAN CORPUSCULAR HGB CONC 32 g/dl (31.0-36.0); MEAN CORPUSCULAR VOLUME 94 fL (80-96); MONOCYTES # (AUTO) 1.4 /CMM (0.1-1.30); MONOCYTES % (AUTO) 10.3 % (2.0-12.0); NEUTROPHILS # (AUTO) 10.7 /CMM (1.8-8.9); NEUTROPHILS % (AUTO) 78.7 % (43.0-81.0); PLATELET COUNT (AUTO) 491 /CMM (150-450); RED BLOOD CELL COUNT(AUTO) 3.01 MIL/uL (4.5-6.0); WHITE BLOOD COUNT (AUTO) 13.6 K/uL (4.3-11.0)
[2020-10-02 04:58] LABS: CALCIUM, SERUM 8.6 mg/dL (8.5-10.1); CREATININE 0.9 mg/dL (0.6-1.3); MAGNESIUM 2.2 mg/dL (1.8-2.4); PHOSPHORUS 3.2 mg/dL (2.5-4.9); POTASSIUM 2.9 mmol/L (3.5-5.1)
[2020-10-02] MEDS: DIVALPROEX SODIUM 125 MG CAP.SPRINK PO SCH ×2 (05:48→12:07)
[2020-10-02] MEDS: HYDROCORTISONE SOD SUCCINATE 100 MG/2 ML VIAL IV SCH ×3 (05:48→21:48)
[2020-10-02] MEDS: VANCOMYCIN HCL 125 MG/2.5 ML ORAL.SUSP PO SCH ×4 (05:52→23:59)
--- NOTE | 2020-10-02 07:40 | NUR ---
RN NOTES PATIENT IS MORE CALM AND COOPERATIVE AT THIS TIME. ECONFUSION STILL NOTED. REORIENTATION FREQUENTLY PROVIDED. CONTINUE ON HIFLOW O2 TITRATED ORDERED. EPISODE OF DESATURATION NOTED WHEN ANXIOUS AND VERY RESTLESS. 1:1 SITTER PROVIDED. AFEBRILE. NGT KEPT INTACT , PATENCY CHECKED. HOB KEPT ELEVATED ON BED. ORA; CARE PROVIDED. TURN AND REPOSITION PATIENT COMFORTABLE. INCONTINENT CARE PROVIDED. ARREGUIN CATH, FLEXISEAL ARE INTACT AND PATENT.
[2020-10-02] MEDS: POTASSIUM CHLORIDE 20 MEQ POWDER PACKET NG SCH ×2 (07:51→08:15)
--- NOTE | 2020-10-02 08:00 | NUR ---
RN NOTES MO TF RESIDUAL NOTED. PT VOMITTED MODERATED AMOUNT OF ORANGE COLOR GASTRIC CONTENT DURING SWALLOWING EVAL , AND AFTER POTASSIUM GIVEN , DR Zaid ÁLVAREZ, NEW ORDER RECEIVED FOR POTASSIUM REPLACEMENT. Addendum: 10/02/20 at 1835 by NOMI KONG RN CORRECTION NO TF RESIDUAL NOTED
[2020-10-02] MEDS: CHOLECALCIFEROL 1,000 UNIT TABLET (VIT D3) PO SCH (08:17)
[2020-10-02] MEDS: OLANZAPINE ZYDIS 5 MG TAB.RAPDIS SL SCH (08:17)
[2020-10-02] MEDS: ASCORBIC ACID 500 MG TABLET PO SCH (08:17)
[2020-10-02] MEDS: THIAMINE HCL 100 MG TABLET PO SCH (08:17)
[2020-10-02] MEDS: ZINC SULFATE 220 MG CAPSULE PO SCH (08:17)
[2020-10-02] MEDS: PANTOPRAZOLE 40 MG VIAL IV SCH ×2 (08:18→21:48)
[2020-10-02] MEDS: NITROGLYCERIN 30 GM TUBE TP SCH (08:19)
[2020-10-02] MEDS: PROSOURCE / PROSTAT (PYXIS) 30 ML UDC GT SCH ×2 (08:23→16:05)
[2020-10-02] MEDS: MISOPROSTOL 100 MCG TABLET PO SCH ×4 (08:23→23:59)
[2020-10-02] MEDS: POTASSIUM CL. PREMIX PERIPHER. 50 ML IV SCH ×4 (09:44→13:22)
[2020-10-02] MEDS: CLOTRIMAZOLE 1% 15 GM TUBE TP SCH (17:00)
[2020-10-02] MEDS: ACETAMINOPHEN 325 MG TABLET PO PRN (17:25)
--- NOTE | 2020-10-02 18:35 | NUR ---
RN NOTES PATIENT REMANINS ON HIGH FLOW O2 , CONFUSED ,ANXIOUS AND VERY RESTLESS. 1:1 SITTER PROVIDED. HR IN 130'S, NO TF RESIDUAL NOTED, TOLERATING TF AT 50 CC/HR, HOB ELEVATED, TURN AND REPOSITION , INCONTINENT CARE PROVIDED. ARREGUIN CATH, FLEXISEAL ARE INTACT , SR UP x3, CALL LIGHT WITHIN EASY REACH, BED LOCKED AND IN LOWEST POSITION, WILL ENDORSE TO UTILITIES ESTIMATOR AND DRAFTER NURSE FOR CONTINUITY OF CARE .
[2020-10-03] VITALS (28 sets, daily range): BP systolic 140–182; BP diastolic 85–113
[2020-10-03] MEDS: GUAIFENESIN/CODEINE 10 ML UDC PO PRN (01:32)
[2020-10-03] MEDS: ENALAPRILAT INJ (1.25 MG/ML) 1.25 MG/ML VIAL IV PRN (02:44)
[2020-10-03 03:49] LABS: BASOPHILS # (AUTO) 0.1 /CMM (0.0-0.2); BASOPHILS % (AUTO) 0.4 % (0.0-2.0); EOSINOPHILS % (AUTO) 0.5 % (0.0-6.0); HEMATOCRIT 28 % (39-51); HEMOGLOBIN 9.1 g/dL (13.5-17.5); LYMPHOCYTES # (AUTO) 1.1 /CMM (0.8-4.8); LYMPHOCYTES % (AUTO) 5.5 % (20.0-44.0); MEAN CORPUSCULAR HGB CONC 33 g/dl (31.0-36.0); MEAN CORPUSCULAR VOLUME 94 fL (80-96); MONOCYTES # (AUTO) 1.6 /CMM (0.1-1.30); MONOCYTES % (AUTO) 7.8 % (2.0-12.0); NEUTROPHILS # (AUTO) 17.7 /CMM (1.8-8.9); NEUTROPHILS % (AUTO) 85.8 % (43.0-81.0); PLATELET COUNT (AUTO) 396 /CMM (150-450); RED BLOOD CELL COUNT(AUTO) 2.97 MIL/uL (4.5-6.0); WHITE BLOOD COUNT (AUTO) 20.6 K/uL (4.3-11.0)
[2020-10-03 04:09] LABS: CALCIUM, SERUM 8.6 mg/dL (8.5-10.1); CREATININE 1.1 mg/dL (0.6-1.3); MAGNESIUM 2.2 mg/dL (1.8-2.4); PHOSPHORUS 3.8 mg/dL (2.5-4.9); POTASSIUM 3.5 mmol/L (3.5-5.1)
[2020-10-03] MEDS: HYDROCORTISONE SOD SUCCINATE 100 MG/2 ML VIAL IV SCH ×2 (04:40→17:28)
[2020-10-03] MEDS: VANCOMYCIN HCL 125 MG/2.5 ML ORAL.SUSP PO SCH ×4 (06:08→23:03)
[2020-10-03] MEDS: ACETAMINOPHEN 325 MG TABLET PO PRN (07:57)
[2020-10-03] MEDS: PANTOPRAZOLE 40 MG VIAL IV SCH ×2 (08:40→22:38)
[2020-10-03] MEDS: ZINC SULFATE 220 MG CAPSULE PO SCH (08:40)
[2020-10-03] MEDS: THIAMINE HCL 100 MG TABLET PO SCH (08:40)
[2020-10-03] MEDS: ASCORBIC ACID 500 MG TABLET PO SCH (08:40)
[2020-10-03] MEDS: CHOLECALCIFEROL 1,000 UNIT TABLET (VIT D3) PO SCH (08:40)
[2020-10-03] MEDS: JEVITY 1.2 CAL 1,000 ML BOTTLE GT PRN (08:42)
[2020-10-03] MEDS: PROSOURCE / PROSTAT (PYXIS) 30 ML UDC GT SCH ×2 (08:42→17:29)
[2020-10-03] MEDS: MISOPROSTOL 100 MCG TABLET PO SCH ×4 (08:44→22:41)
[2020-10-03] MEDS: NITROGLYCERIN 30 GM TUBE TP SCH ×3 (08:46→22:42)
[2020-10-03] MEDS: CLOTRIMAZOLE 1% 15 GM TUBE TP SCH ×2 (08:50→17:29)
[2020-10-03 11:36] LABS: ABG BASE EXCESS 9.8 mmol/L; ABG OXYGEN SATURATION 94.9 % (92.0-98.5); ABG PCO2 43.9 mmHg (35.0-45.0); ABG PH 7.506 (7.350-7.450); ABG PO2 72.5 mmHg (75.0-100.0); AaDO2 524.2 mmHg; COHb 0.7 % (0.5-1.5); MetHb 0.1 % (0.0-1.5); O2Hb 94.1 % (94.0-97.0); SITE, ABG Right Radial; VENT MODE, BG HFNC 40 L / 90% FIO2
--- NOTE | 2020-10-03 11:55 | NUR ---
fio2 decreased from 90% to 80% per dr. paredes Addendum: 10/03/20 at 1156 by LALO CASTILLO RT Amended: Links added.
--- NOTE | 2020-10-03 18:00 | NUR ---
RN NOTES PATIENT REMANINS ON HIGH FLOW O2 , CONFUSED AND ANXIOUS AT TIMES, TACHYCARDIC, , TF AT 50CC/HR RUNNING , NO RESIDUAL NOTED, HOB ELEVATED, TURN AND REPOSITION , INCONTINENT CARE PROVIDED. ARREGUIN CATH, FLEXISEAL ARE INTACT , PT HAS 1:1 SITTER FOR SAFETY, SR UP x3, CALL LIGHT WITHIN EASY REACH, BED LOCKED AND IN LOWEST POSITION, WILL ENDORSE TO SENIOR DESIGN ENGINEER NURSE FOR CONTINUITY OF CARE .
--- NOTE | 2020-10-03 19:35 | NUR ---
ICU/OPERATIONS PROCESSOR RECIEVED REPORT FROM DAY SHIFT NURSE, SEE FLOWSHEET FOR ASSESSMENT. PT PULLED UP IN BED AND REPOSITIONED. WILL CLOSELY MONITOR THIS PT. FIO2 IS AT 90, SATURATION IS 93%.
--- NOTE | 2020-10-03 20:10 | NUR ---
ICU/SAGGER PREPARER PT WAS TURNED AND REPOSTIONED FOR COMFORT AND CARE,AFTER ORAL CARE WAS GIVEN. PT TOLERATED THIS WELL.
[2020-10-03] MEDS ORDERED: MICAFUNGIN SODIUM 100 MG in IV NS 0.9% 100 ML IV SCH (21:00)
--- NOTE | 2020-10-03 21:00 | NUR ---
ICU/MULTISENSOR INTELLIGENCE OFFICER LAB CAME ED LABS FOR BLOOD CULTURE AND OTHER TEST, PER BRUCE INFECTIOUS DISEASE BASIN CLEANER.
--- NOTE | 2020-10-03 21:50 | NUR ---
ICU/DESKTOP OPERATOR PT'S SATURATION IS 99% ON FIO2 AT 90. RT DROPPED IT DOWN TO 80 FIO2. WILL MONITOR THIS PT'S SATURATION.
[2020-10-03] MEDS: VORICONAZOLE 200 MG TABLET PO SCH (22:41)
--- NOTE | 2020-10-03 22:56 | NUR ---
ICU/FACILITY SUPERVISOR PT'S SATURATION IS 100% ON FIO2 AT 80. RT DROPPED IT DOWN TO FIO2 DOWN TO 70. WILL CONTINUE TO MONITOR THIS PT'S AND HIS SATURATION.
[2020-10-04] VITALS (27 sets, daily range): BP systolic 128–163; BP diastolic 95–114
--- NOTE | 2020-10-04 | NUR ---
ICU/PE ELECTRICAL ENGINEER PT'S MIDNIGHT TEMP WAS 100.1, TYLENOL VIA G/TUBE WWAS GIVEN. WILL CONTINUE TO MONITOR THIS PT AND HIS TEMP.
[2020-10-04] MEDS: ACETAMINOPHEN 325 MG TABLET PO PRN ×3 (00:26→21:43)
--- NOTE | 2020-10-04 00:28 | NUR ---
ICU/MANUFACTURED BUILDINGS REPAIRER PT'S SATURATION IS 99-100% ON FIO2 AT 70. FIO2 WAS DROPPED DOWN TO 60. WILL CONTINUE TO MONITOR THIS PT'S AND HIS SATURATION.
--- NOTE | 2020-10-04 01:02 | NUR ---
ICU/ASSOCIATE PROFESSOR OF THEATRE PLACED HIGH FLOW BACK TO 65 FROM 60, SATURATION IS 93-94%. WILL MONITOR THIS PT'S SATURATION.
[2020-10-04 03:44] LABS: BASOPHILS % (AUTO) 0.2 % (0.0-2.0); EOSINOPHILS % (AUTO) 0.3 % (0.0-6.0); HEMATOCRIT 28 % (39-51); HEMOGLOBIN 9.2 g/dL (13.5-17.5); LYMPHOCYTES # (AUTO) 1.7 /CMM (0.8-4.8); LYMPHOCYTES % (AUTO) 8.5 % (20.0-44.0); MEAN CORPUSCULAR HGB CONC 32 g/dl (31.0-36.0); MEAN CORPUSCULAR VOLUME 95 fL (80-96); MONOCYTES # (AUTO) 1.6 /CMM (0.1-1.30); MONOCYTES % (AUTO) 7.9 % (2.0-12.0); NEUTROPHILS # (AUTO) 16.6 /CMM (1.8-8.9); NEUTROPHILS % (AUTO) 83.1 % (43.0-81.0); PLATELET COUNT (AUTO) 394 /CMM (150-450); RED BLOOD CELL COUNT(AUTO) 2.97 MIL/uL (4.5-6.0)
[2020-10-04 04:08] LABS: ALBUMIN 2.5 g/dL (3.4-5.0); BILIRUBIN,DIRECT 0.5 mg/dL (0.0-0.2); CALCIUM, SERUM 8.6 mg/dL (8.5-10.1); CREATININE 1.1 mg/dL (0.6-1.3); MAGNESIUM 2.3 mg/dL (1.8-2.4); PHOSPHORUS 3.6 mg/dL (2.5-4.9); TOTAL PROTEIN, SERUM 6.7 g/dL (6.4-8.2)
[2020-10-04 04:21] LABS: POTASSIUM 2.8 mmol/L (3.5-5.1)
[2020-10-04 06:03] LABS: ABG BASE EXCESS 7.2 mmol/L; ABG PCO2 38.2 mmHg (35.0-45.0); ABG PO2 63.7 mmHg (75.0-100.0); AaDO2 322.1 mmHg; O2Hb 92.1 % (94.0-97.0); SITE, ABG Right Radial
[2020-10-04] MEDS: VANCOMYCIN HCL 125 MG/2.5 ML ORAL.SUSP PO SCH ×3 (06:10→17:24)
--- NOTE | 2020-10-04 07:03 | NUR ---
ICU/DIRECTOR OF ATHLETICS OK TO D/C CVP MONITORING, PER DR LOPEZ. THIS ORDERS WERE CARRIED OUT.
--- NOTE | 2020-10-04 07:15 | NUR ---
MONITORING ENGINEER NOTES RECEIVED PATIENT AOX2 , CONFUSE , RE ORIENTED TO PLACE , DATE AND TIME , NOT IN ACUTE DISTRESS , DENIES SOB AND DISCOMFORT , ON HIGH FLOW NASAL CANNULA @ 60 % FIO2 40LPM SPO2 OF 92% , ST 115 ON BEDSIDE MONITOR , FLEXISEAL IN PLACE DRIANING VIA GRAVITY , FC DRAINING VIA GRAVITY , L NARE NGT PATENT AND INTACT IN PLACE , WITH JEVITY @ 50ML/HR TOLERATING WELL WITH 5ML RESIDUALS NOTED , 1:1 SITTER AT BEDSIDE , SERINA PICC LINE WITH NS @ TKO , ALL NEEDS ATTENDED , WILL CONTINUE TO MONITOR .
[2020-10-04] MEDS: CHOLECALCIFEROL 1,000 UNIT TABLET (VIT D3) PO SCH (08:26)
[2020-10-04] MEDS: VORICONAZOLE 200 MG TABLET PO SCH ×2 (08:26→21:42)
[2020-10-04] MEDS: ASCORBIC ACID 500 MG TABLET PO SCH (08:27)
[2020-10-04] MEDS: PANTOPRAZOLE 40 MG VIAL IV SCH ×2 (08:27→20:37)
[2020-10-04] MEDS: ZINC SULFATE 220 MG CAPSULE PO SCH (08:27)
[2020-10-04] MEDS: MISOPROSTOL 100 MCG TABLET PO SCH ×4 (08:27→21:42)
[2020-10-04] MEDS: PROSOURCE / PROSTAT (PYXIS) 30 ML UDC GT SCH ×2 (08:27→16:07)
[2020-10-04] MEDS: HYDROCORTISONE SOD SUCCINATE 100 MG/2 ML VIAL IV SCH ×2 (08:27→16:07)
[2020-10-04] MEDS: THIAMINE HCL 100 MG TABLET PO SCH (08:27)
[2020-10-04] MEDS: CLOTRIMAZOLE 1% 15 GM TUBE TP SCH ×2 (08:27→16:07)
[2020-10-04] MEDS: NITROGLYCERIN 30 GM TUBE TP SCH ×2 (08:28→21:42)
[2020-10-04] MEDS: POTASSIUM CHLORIDE 20 MEQ POWDER PACKET NG SCH ×3 (10:21→12:04)
--- NOTE | 2020-10-04 10:40 | NUR ---
EVENTS AND PROMOTIONS ASSISTANT NOTES PT PULLED OUT HIS PULSE OXYMETER X2 , SITTER AT BEDSIDE , FREQUENT RE ORIENTATION TO PLACE DATE AND TIME , PT CALM , COOPERATIVE , WILL CONTINUE TO MONITOR .
[2020-10-04] MEDS: ENALAPRILAT INJ (1.25 MG/ML) 1.25 MG/ML VIAL IV PRN ×2 (12:25→18:48)
--- NOTE | 2020-10-04 20:30 | NUR ---
ICU/MARINE FARMER PT WAS GIVEN TYLENOL VIA N/G TUBE, PT C/O OF PAIN RATED 5/10. WILL MONITOR THIS.
[2020-10-05] VITALS (37 sets, daily range): BP systolic 144–198; BP diastolic 88–148
[2020-10-05] MEDS: VANCOMYCIN HCL 125 MG/2.5 ML ORAL.SUSP PO SCH ×4 (00:11→17:20)
--- NOTE | 2020-10-05 00:20 | NUR ---
ICU/BARREL RIFLER BUTTON PT HAD FEVER AT MIDNIGHT 100.6, ICE BATH GIVEN FOR THIS. WILL MONITOR THIS TEMP.
--- NOTE | 2020-10-05 02:50 | NUR ---
ICU/HADOOP DEVELOPER WHILE CHANGING OUT THE WATER FOR THE HIGH FLOW, PT SATURATION LOWERED DOWN RAPIDLY. HAD TO BE PLACED BACK UP TO 100% FIO2 FROM 55. ALONG WITH 15 LITERS NRB MASK. WILL MONITOR.
[2020-10-05 05:07] LABS: BASOPHILS % (AUTO) 0.2 % (0.0-2.0); EOSINOPHILS % (AUTO) 0.3 % (0.0-6.0); HEMATOCRIT 28 % (39-51); HEMOGLOBIN 9.2 g/dL (13.5-17.5); LYMPHOCYTES # (AUTO) 1.9 /CMM (0.8-4.8); LYMPHOCYTES % (AUTO) 9.7 % (20.0-44.0); MEAN CORPUSCULAR HGB CONC 33 g/dl (31.0-36.0); MEAN CORPUSCULAR VOLUME 95 fL (80-96); MONOCYTES # (AUTO) 1.7 /CMM (0.1-1.30); MONOCYTES % (AUTO) 8.5 % (2.0-12.0); NEUTROPHILS % (AUTO) 81.3 % (43.0-81.0); PLATELET COUNT (AUTO) 347 /CMM (150-450); RED BLOOD CELL COUNT(AUTO) 2.99 MIL/uL (4.5-6.0); WHITE BLOOD COUNT (AUTO) 19.7 K/uL (4.3-11.0)
[2020-10-05 05:18] LABS: CALCIUM, SERUM 8.5 mg/dL (8.5-10.1); CREATININE 1.2 mg/dL (0.6-1.3); MAGNESIUM 2.3 mg/dL (1.8-2.4); PHOSPHORUS 3.9 mg/dL (2.5-4.9); POTASSIUM 3.1 mmol/L (3.5-5.1)
--- NOTE | 2020-10-05 06:30 | NUR ---
ICU/BAGGAGE CHECKER WAS ABLE TO TITRATE DOWN THE FIO2 TO 70% AND THE NRB MASK WAS TAKEN OFF. SATURATION IS AT 95%. WILL CONTINUE TO MONITOR.
[2020-10-05] MEDS: JEVITY 1.2 CAL 1,000 ML BOTTLE GT PRN (06:32)
--- NOTE | 2020-10-05 07:15 | NUR ---
AUTOMOTIVE PROFESSIONAL NOTES RECEIVED PATIENT AOX2 , CONFUSED , RE ORIENTED TO PLACE , DATE AND TIME , NOT IN ACUTE DISTRESS , DENIES SOB AND DISCOMFORT , ON HIGH FLOW NASAL CANNULA @ 60 % FIO2 40LPM SPO2 OF 95% , ST 118 ON BEDSIDE MONITOR , FLEXISEAL IN PLACE DRIANING VIA GRAVITY , FC DRAINING VIA GRAVITY , L NARE NGT PATENT AND INTACT IN PLACE , WITH JEVITY @ 50ML/HR TOLERATING WELL WITH NO RESIDUALS NOTED , 1:1 SITTER AT BEDSIDE , SERINA PICC LINE WITH NS @ TKO , ALL NEEDS ATTENDED , WILL CONTINUE TO MONITOR .
[2020-10-05] MEDS: CHOLECALCIFEROL 1,000 UNIT TABLET (VIT D3) PO SCH (08:50)
[2020-10-05] MEDS: ZINC SULFATE 220 MG CAPSULE PO SCH (08:50)
[2020-10-05] MEDS: MISOPROSTOL 100 MCG TABLET PO SCH ×4 (08:50→21:16)
[2020-10-05] MEDS: THIAMINE HCL 100 MG TABLET PO SCH (08:50)
[2020-10-05] MEDS: ASCORBIC ACID 500 MG TABLET PO SCH (08:50)
[2020-10-05] MEDS: HYDROCORTISONE SOD SUCCINATE 100 MG/2 ML VIAL IV SCH ×2 (08:50→10:47)
[2020-10-05] MEDS: PANTOPRAZOLE 40 MG VIAL IV SCH ×2 (08:50→21:13)
[2020-10-05] MEDS: VORICONAZOLE 200 MG TABLET PO SCH ×2 (08:50→21:16)
[2020-10-05] MEDS: CLOTRIMAZOLE 1% 15 GM TUBE TP SCH ×2 (08:51→17:21)
[2020-10-05] MEDS: PROSOURCE / PROSTAT (PYXIS) 30 ML UDC GT SCH ×2 (08:51→17:20)
[2020-10-05 08:52] LABS: ABG BASE EXCESS 7.7 mmol/L; ABG OXYGEN SATURATION 92.6 % (92.0-98.5); ABG PCO2 42.8 mmHg (35.0-45.0); ABG PH 7.489 (7.350-7.450); ABG PO2 62.7 mmHg (75.0-100.0); COHb 1.1 % (0.5-1.5); MetHb 0.3 % (0.0-1.5); O2Hb 91.3 % (94.0-97.0); SITE, ABG Right Radial; VENT MODE, BG HFNC %60 FIO2
[2020-10-05] MEDS: NITROGLYCERIN 30 GM TUBE TP SCH ×2 (08:52→21:16)
[2020-10-05] MEDS ORDERED: POTASSIUM CHLORIDE 20 MEQ TAB.PRT.SR PO SCH (09:00)
[2020-10-05] MEDS: GUAIFENESIN/CODEINE 10 ML UDC PO PRN (09:57)
[2020-10-05] MEDS: ENALAPRILAT INJ (1.25 MG/ML) 1.25 MG/ML VIAL IV PRN ×2 (09:57→21:14)
[2020-10-05] MEDS: POTASSIUM CHLORIDE 20 MEQ POWDER PACKET NG SCH ×2 (09:57→11:11)
--- NOTE | 2020-10-05 10:48 | NUR ---
PROPERTY COORDINATOR NOTES SOLU CORTEF DOSE DAILY @ 1100 HELD , VERIFIED WITH MD GREER TO HOLD PT RECEIVED A DOSE TODAY
--- NOTE | 2020-10-05 14:57 | NUR ---
SECOND GRADE TEACHER NOTES NOTIFIED DR DOMINGUEZ REGARDING HIGH BP OF THE PT , CURRENT BP IS 153/111 , VASOTEC GIVEN @ 1200 BP STILL HIGH , NO SIGNS OF DISTRESS AT THIS TIME ,, NO ROUTINE NG/PO MEDS ASIDE FROM NITROPASTE BID , NOTIFIED BUN CREATININE OF THE PT , PER MD START PT ON LISINOPRIL 10MG BID VIA NGT ORDER CARRIED OUT
[2020-10-05] MEDS ORDERED: LISINOPRIL (10MG) 10 MG TABLET NG SCH (15:00)
[2020-10-05] MEDS: LISINOPRIL (10MG) 10 MG TABLET NG SCH ×2 (15:08→17:21)
[2020-10-05] MEDS: ACETAMINOPHEN 325 MG TABLET PO PRN (15:14)
--- NOTE | 2020-10-05 18:56 | NUR ---
STORAGE GARAGE ATTENDANT NOTES WHILE GIVING SELMA BATH PT NOTED TO DESATURATE @ LOW 60% SPO2 ON 35 LPM 60% FIO2 , HR 140 ST , PLACED PT ON 15LPM NON RE BREATHER MASK , NOTED PT WITH DISTRESS , RR 30-35CPM , COUGHING , SUCTION PT NOTED WITH MINIMAL BLOODY SECRETIONS , PAGED MARTHA MINOR , RT CHANGE HIGH FLOW NC TO 100% , DR MARTHA MINOR UPDATED REGRADING EVENT , CURRENT SPO2 OF 91% ON MAX HIGH FLOW NC , WITH NON REBEATHER MASK , COUGHING , SUCTIONED NOTED WITH MINIMAL AMOUNT OF BLOODY SECRETIONS , HR 140 'S BP 148/112 , APO12 OF 90% , AWARE , OK TO CANCEL ABG , NO NEW ORDERS RECEIVED ,.
--- NOTE | 2020-10-05 20:00 | NUR ---
ICU/LEAD OPERATOR PT'S SATURATION IS STABLE AT 60 LITERS WITH FIO2 80. WILL CONTINUE TO MONITOR THIS PT AND HIS SATURATION.
[2020-10-05] MEDS ORDERED: SIMETHICONE SUSP 40 MG/0.6 ML BOTTLE PO PRN (20:30)
--- NOTE | 2020-10-05 20:33 | NUR ---
ICU/MATERIALS HANDLING EQUIPMENT OPERATOR PT COMPLAINED ABOUT GAS PAIN, GOT ORDER FOR SIMETHICONE. ABDOMEN IS SLIGHTLY DISTENDED. WILL MONITOR. Addendum: 10/06/20 at 0146 by BAKARI LOU LVN THIS WAS GIVEN AT 0130
[2020-10-05] MEDS ORDERED: SIMETHICONE 80 MG TAB.CHEW PO PRN (21:30)
--- NOTE | 2020-10-05 21:30 | NUR ---
ICU/FAMILY AND CONSUMER SCIENCE PROFESSOR PT WAS GIVEN VASOTEC BY CHARGE NURSE FOR BP 170'S. WILL CONTINUE TO MONITOR THIS PT AND HIS BLOOD PRESSURE.
--- NOTE | 2020-10-05 23:30 | NUR ---
ICU/INVESTIGATOR FRAUD PT REFUSED TO DO PASSIVE ROM, TRIED TO EXPLAINED THAT'S IT NEEDED. PT APPEARS TO BE MORE ALERT. WILL TRY AGAIN LATER.
[2020-10-06] VITALS (46 sets, daily range): BP systolic 123–160; BP diastolic 53–114
--- NOTE | 2020-10-06 00:10 | NUR ---
ICU/SLAG MIXER PT IS SATURATING 99%, RT LOWERED DOWN THE FIO2 TO 70 FROM 80. PT AT THIS TIME WAS REPOSITIONED AND THEN GIVEN ORAL CARE. WILL MONITOR THIS PT AND HIS SATURATION.
[2020-10-06] MEDS: VANCOMYCIN HCL 125 MG/2.5 ML ORAL.SUSP PO SCH ×4 (00:16→17:00)
[2020-10-06] MEDS: GUAIFENESIN/CODEINE 10 ML UDC PO PRN (00:22)
--- NOTE | 2020-10-06 00:45 | NUR ---
ICU/SALESPERSON HOSIERY PT WAS COUGHING, PRN COUGH MEDICATION GIVEN WILL MONITOR THIS PT.
--- NOTE | 2020-10-06 02:00 | NUR ---
ICU/COATER FIO2 WAS INCREASED TO 80 FROM 70 AT PT'S REQUEST. PT SAID HE WAS SHORTNESS OF BREATH. WILL MONITOR THIS PT AND HIS SATURATION.
[2020-10-06 05:13] LABS: BASOPHILS # (AUTO) 0.1 /CMM (0.0-0.2); BASOPHILS % (AUTO) 0.3 % (0.0-2.0); EOSINOPHILS % (AUTO) 0.8 % (0.0-6.0); HEMATOCRIT 28 % (39-51); HEMOGLOBIN 8.9 g/dL (13.5-17.5); LYMPHOCYTES # (AUTO) 1.7 /CMM (0.8-4.8); LYMPHOCYTES % (AUTO) 7.8 % (20.0-44.0); MEAN CORPUSCULAR HGB CONC 32 g/dl (31.0-36.0); MEAN CORPUSCULAR VOLUME 96 fL (80-96); MONOCYTES # (AUTO) 1.6 /CMM (0.1-1.30); MONOCYTES % (AUTO) 7.3 % (2.0-12.0); NEUTROPHILS # (AUTO) 18.5 /CMM (1.8-8.9); NEUTROPHILS % (AUTO) 83.8 % (43.0-81.0); PLATELET COUNT (AUTO) 301 /CMM (150-450); RED BLOOD CELL COUNT(AUTO) 2.94 MIL/uL (4.5-6.0); WHITE BLOOD COUNT (AUTO) 22.1 K/uL (4.3-11.0)
[2020-10-06 05:41] LABS: CALCIUM, SERUM 8.4 mg/dL (8.5-10.1); CREATININE 1.1 mg/dL (0.6-1.3); MAGNESIUM 2.2 mg/dL (1.8-2.4); PHOSPHORUS 3.5 mg/dL (2.5-4.9); POTASSIUM 3.3 mmol/L (3.5-5.1)
[2020-10-06 07:34] LABS: ABG BASE EXCESS 6.2 mmol/L; ABG OXYGEN SATURATION 97.6 % (92.0-98.5); ABG PCO2 41.4 mmHg (35.0-45.0); ABG PH 7.481 (7.350-7.450); ABG PO2 100.2 mmHg (75.0-100.0); AaDO2 426.7 mmHg; COHb 0.4 % (0.5-1.5); MetHb 0.2 % (0.0-1.5); SITE, ABG Right Femoral; VENT MODE, BG HFNC 60L 80%
[2020-10-06] MEDS: ZINC SULFATE 220 MG CAPSULE PO SCH (08:33)
[2020-10-06] MEDS: VORICONAZOLE 200 MG TABLET PO SCH ×2 (08:33→20:03)
[2020-10-06] MEDS: LISINOPRIL (10MG) 10 MG TABLET NG SCH ×3 (08:34→16:54)
[2020-10-06] MEDS: PANTOPRAZOLE 40 MG VIAL IV SCH ×2 (08:34→20:03)
[2020-10-06] MEDS: CHOLECALCIFEROL 1,000 UNIT TABLET (VIT D3) PO SCH (08:34)
[2020-10-06] MEDS: THIAMINE HCL 100 MG TABLET PO SCH (08:34)
[2020-10-06] MEDS: ASCORBIC ACID 500 MG TABLET PO SCH (08:34)
[2020-10-06] MEDS: HYDROCORTISONE SOD SUCCINATE 100 MG/2 ML VIAL IV SCH (08:34)
[2020-10-06] MEDS: PROSOURCE / PROSTAT (PYXIS) 30 ML UDC GT SCH ×2 (08:35→17:02)
[2020-10-06] MEDS: CLOTRIMAZOLE 1% 15 GM TUBE TP SCH ×2 (08:36→16:58)
[2020-10-06] MEDS: MISOPROSTOL 100 MCG TABLET PO SCH ×4 (08:37→20:03)
[2020-10-06] MEDS: NITROGLYCERIN 30 GM TUBE TP SCH ×2 (08:38→20:40)
--- NOTE | 2020-10-06 09:00 | NUR ---
RN NOTES TF RESTARTED AT 20C/HR PER DR FRIEDMAN ORDER . CONTINUE TO MONITOR .
[2020-10-06] MEDS: POTASSIUM CHLORIDE 20 MEQ POWDER PACKET GT SCH ×3 (09:16→11:12)
[2020-10-06] MEDS: JEVITY 1.2 CAL 1,000 ML BOTTLE GT PRN (12:01)
--- NOTE | 2020-10-06 18:00 | NUR ---
RN NOTES VSS STABLE, PT REMAINS ON HIGH FLOW O2 , TOLERATING TF AT 20CC/HR WELL, NO SIGNIFICANT CHANGES NOTED ON THIS SHIFT, WILL ENDORSE TO SUPERVISING EDITOR NEWS REEL NURSE FOR CONTINUITY OF CARE .
--- NOTE | 2020-10-06 19:30 | NUR ---
RN NOTES RECEIVED REPORT FROM DAY SHIFT, SEE FLOW SHEET FOR ASSESSMENT. CONTINUES ON HIGH FLOW O2, 40L, FIO2 55%. SATING 95%. BREATHING NORMAL NO SOB NOTED. NO S/S OF ACUTE DISTRESS NOTED. SERINA IV INTACT NO S/S OF BLEEDING NO SWELLING NOTED. FLEXI SEAL AND F/C INTACT DARNING WELL VIA GRAVITY. SAFETY MEASURES IN PLACE, CALL LIGHT WITHIN REACH, SIDE RAILS UP. SITTER AT BED SIDE. WILL CONT TO MONITOR FOR COMFORT.
[2020-10-06] MEDS ORDERED: NITROGLYCERIN PACKET 1 GM PACKET ONE (20:20)
--- NOTE | 2020-10-06 23:07 | NUR ---
PATIENT SATING 86-88%, RT NOTIFIED, AT BED SIDE
--- NOTE | 2020-10-06 23:08 | NUR ---
RT Flow and FiO2 increased to 50L and 70% due to SpO2 of 86-88% on previous settings. No SOB or respiratory distress noted. Addendum: 10/06/20 at 2309 by OMA YADAV RT Amended: Links added.
[2020-10-07] VITALS (41 sets, daily range): BP systolic 107–170; BP diastolic 72–115
[2020-10-07] MEDS: VANCOMYCIN HCL 125 MG/2.5 ML ORAL.SUSP PO SCH ×4 (00:57→17:10)
--- NOTE | 2020-10-07 03:50 | NUR ---
FLEXI SEAL DISLODGED, PATIENT IS A0X2 PATIENT REFUSED TO HAVE FLEXI SEAL REINSERT, WITNESS BY ANOTHER RN. WILL CONT TO MONITOR.
[2020-10-07 04:59] LABS: BASOPHILS # (AUTO) 0.1 /CMM (0.0-0.2); BASOPHILS % (AUTO) 0.6 % (0.0-2.0); EOSINOPHILS % (AUTO) 2.4 % (0.0-6.0); HEMATOCRIT 28 % (39-51); HEMOGLOBIN 9.1 g/dL (13.5-17.5); LYMPHOCYTES # (AUTO) 1.8 /CMM (0.8-4.8); LYMPHOCYTES % (AUTO) 8.8 % (20.0-44.0); MEAN CORPUSCULAR HGB CONC 33 g/dl (31.0-36.0); MEAN CORPUSCULAR VOLUME 94 fL (80-96); MONOCYTES # (AUTO) 1.7 /CMM (0.1-1.30); MONOCYTES % (AUTO) 7.9 % (2.0-12.0); NEUTROPHILS # (AUTO) 16.8 /CMM (1.8-8.9); NEUTROPHILS % (AUTO) 80.3 % (43.0-81.0); PLATELET COUNT (AUTO) 285 /CMM (150-450); RED BLOOD CELL COUNT(AUTO) 2.95 MIL/uL (4.5-6.0)
[2020-10-07 05:29] LABS: CALCIUM, SERUM 8.6 mg/dL (8.5-10.1); CREATININE 1.2 mg/dL (0.6-1.3); MAGNESIUM 2.1 mg/dL (1.8-2.4); PHOSPHORUS 3.8 mg/dL (2.5-4.9); POTASSIUM 3.2 mmol/L (3.5-5.1)
--- NOTE | 2020-10-07 07:23 | NUR ---
RN NOTES CONTINUES ON HIGH FLOW SATING 96% AT THIS TIME. NO SOB NOTED, NO S/S OF ACUTE DISTRESS NOTED. PATIENT ENDORSE PATIENT TO AM NURSE FOR COMFORT,
[2020-10-07] MEDS: PROSOURCE / PROSTAT (PYXIS) 30 ML UDC GT SCH ×2 (08:51→16:51)
[2020-10-07] MEDS: CHOLECALCIFEROL 1,000 UNIT TABLET (VIT D3) PO SCH (08:52)
[2020-10-07] MEDS: LISINOPRIL (10MG) 10 MG TABLET NG SCH ×2 (08:52→16:51)
[2020-10-07] MEDS: VORICONAZOLE 200 MG TABLET PO SCH ×2 (08:52→20:34)
[2020-10-07] MEDS: THIAMINE HCL 100 MG TABLET PO SCH (08:52)
[2020-10-07] MEDS: ZINC SULFATE 220 MG CAPSULE PO SCH (08:52)
[2020-10-07] MEDS: ASCORBIC ACID 500 MG TABLET PO SCH (08:53)
[2020-10-07] MEDS: PANTOPRAZOLE 40 MG VIAL IV SCH ×2 (08:58→20:34)
[2020-10-07] MEDS: HYDROCORTISONE SOD SUCCINATE 100 MG/2 ML VIAL IV SCH (08:58)
[2020-10-07] MEDS: CLOTRIMAZOLE 1% 15 GM TUBE TP SCH ×2 (08:59→16:52)
[2020-10-07] MEDS: MISOPROSTOL 100 MCG TABLET PO SCH ×4 (08:59→20:34)
[2020-10-07] MEDS: NITROGLYCERIN 30 GM TUBE TP SCH ×2 (09:00→20:34)
[2020-10-07] MEDS ORDERED: FIDAXOMICIN 200 MG TABLET PO SCH (09:00)
[2020-10-07] MEDS: POTASSIUM CL. PREMIX PERIPHER. 50 ML IV SCH ×6 (09:41→15:44)
--- NOTE | 2020-10-07 11:00 | NUR ---
RN NOTES NGT D/KING PER MD ORDER , SWALLOWING EVAL DONE , PT IS ABLE TO TOLERATE PUREE DIET WILL , VSS STABLE, CONTINUE TO MONITOR .
--- NOTE | 2020-10-07 12:00 | NUR ---
RN NOTES PT UP IN A CHAIR , TOLERAING WELL, ON HIGH FLOW O2 , O2 SAT WNL, CONTINUE TO MONITOR .
--- NOTE | 2020-10-07 18:00 | NUR ---
RN NOTES O2 SAT WNL , PT STILL ON HIGH FLOW O2 , NO SIGNIFICANT CHANGES NOTED ON THIS SHIFT , WILL ENDORSE TO SIDE PIECE COVERER NURSE FOR CONTINUITY OF CARE .
--- NOTE | 2020-10-07 19:55 | NUR ---
PRINTED CIRCUIT BOARD PANELS TRIMMER NOTES RECEIVED ORDER FROM DR MARTHA MINOR TO MD GUAIFENESIN WITH CODEINE. NEW ORDER OBTAINED FOR GUAIFENESIN DM 5MG PO Q6H FOR COUGH. WILL CARRY OUT NEW ORDERS AND MONITOR CLOSELY
[2020-10-07] MEDS: GUAIFENESIN/D-METHORPHAN HB 5 ML UDC PO PRN (20:34)
[2020-10-08] VITALS (22 sets, daily range): BP systolic 128–156; BP diastolic 79–105
[2020-10-08] MEDS: VANCOMYCIN HCL 125 MG/2.5 ML ORAL.SUSP PO SCH ×4 (00:01→17:19)
--- NOTE | 2020-10-08 04:00 | NUR ---
PEDIATRICIAN NOTES ROBITUSSIN DM ADMINISTERED ORDERED FOR COUGH. WILL MONITOR CLOSELY
[2020-10-08 04:20] LABS: BASOPHILS # (AUTO) 0.1 /CMM (0.0-0.2); BASOPHILS % (AUTO) 0.6 % (0.0-2.0); EOSINOPHILS % (AUTO) 4.1 % (0.0-6.0); HEMATOCRIT 26 % (39-51); HEMOGLOBIN 8.4 g/dL (13.5-17.5); LYMPHOCYTES # (AUTO) 1.4 /CMM (0.8-4.8); LYMPHOCYTES % (AUTO) 10.1 % (20.0-44.0); MEAN CORPUSCULAR HGB CONC 33 g/dl (31.0-36.0); MEAN CORPUSCULAR VOLUME 96 fL (80-96); MONOCYTES # (AUTO) 1.1 /CMM (0.1-1.30); NEUTROPHILS % (AUTO) 77.2 % (43.0-81.0); PLATELET COUNT (AUTO) 254 /CMM (150-450); RED BLOOD CELL COUNT(AUTO) 2.71 MIL/uL (4.5-6.0); WHITE BLOOD COUNT (AUTO) 14.2 K/uL (4.3-11.0)
[2020-10-08] MEDS: GUAIFENESIN/D-METHORPHAN HB 5 ML UDC PO PRN ×3 (04:22→20:30)
[2020-10-08 04:30] LABS: CALCIUM, SERUM 8.3 mg/dL (8.5-10.1); CREATININE 1.1 mg/dL (0.6-1.3); POTASSIUM 3.1 mmol/L (3.5-5.1)
--- NOTE | 2020-10-08 08:08 | NUR ---
received on 50% fio2, spo2 96%. no sob noted Addendum: 10/08/20 at 0808 by LALO CASTILLO RT Amended: Links added.
[2020-10-08] MEDS: VORICONAZOLE 200 MG TABLET PO SCH ×2 (08:25→20:30)
[2020-10-08] MEDS: ASCORBIC ACID 500 MG TABLET PO SCH (08:25)
[2020-10-08] MEDS: THIAMINE HCL 100 MG TABLET PO SCH (08:25)
[2020-10-08] MEDS: ZINC SULFATE 220 MG CAPSULE PO SCH (08:25)
[2020-10-08] MEDS: PANTOPRAZOLE 40 MG VIAL IV SCH ×2 (08:25→20:30)
[2020-10-08] MEDS: HYDROCORTISONE SOD SUCCINATE 100 MG/2 ML VIAL IV SCH (08:25)
[2020-10-08] MEDS: CHOLECALCIFEROL 1,000 UNIT TABLET (VIT D3) PO SCH (08:25)
[2020-10-08] MEDS: PROSOURCE / PROSTAT (PYXIS) 30 ML UDC GT SCH ×2 (08:26→17:20)
[2020-10-08] MEDS: LISINOPRIL (10MG) 10 MG TABLET NG SCH ×2 (08:26→17:20)
[2020-10-08] MEDS: CLOTRIMAZOLE 1% 15 GM TUBE TP SCH ×2 (08:30→17:20)
[2020-10-08] MEDS: MISOPROSTOL 100 MCG TABLET PO SCH ×4 (08:30→20:30)
[2020-10-08] MEDS: NITROGLYCERIN 30 GM TUBE TP SCH ×2 (08:31→20:30)
[2020-10-08] MEDS ORDERED: POTASSIUM CHLORIDE 20 MEQ POWDER PACKET PO ONE (10:00)
[2020-10-08] MEDS ORDERED: POTASSIUM CL. PREMIX PERIPHER. 50 ML IV SCH (10:00)
[2020-10-08] MEDS: FIDAXOMICIN 200 MG TABLET PO SCH ×2 (11:18→17:19)
[2020-10-08] MEDS: ACETAMINOPHEN 325 MG TABLET PO PRN (17:37)
--- NOTE | 2020-10-08 18:38 | NUR ---
RN CLOSING NOTES NO SIGNIFICANT CHANGE NOTED. REMAINS ON HIGH FLOW 02. DENIES ANY PAIN. TOLERATES PO MEAL WELL. KEPT CLEAN AND DRY. FC IN PLACE. KEPT COMFORTABLE. WILL ENDORSE FOR CONTINUITY OF CARE
[2020-10-09] VITALS (24 sets, daily range): BP systolic 101–150; BP diastolic 58–112
--- NOTE | 2020-10-09 | NUR ---
MEDICAL INSTRUCTOR NOTES HIGH FLOW NASAL CANNULA TITRATED BY RT CASTELLANOS, NOW @ 40LPM, FIO2 50%. PATIENT TOLERATING SETTINGS, NO RESPIRATORY DISTRESS, WILL MONITOR CLOSELY
--- NOTE | 2020-10-09 04:30 | NUR ---
IMPROVEMENT DIRECTOR NOTES HIGH FLOW NASAL CANNULA TITRATED BY RT CASTELLANOS, SETTINGS NOW 30LPM, FIO2 50%. PATIENT TOLERATING TITRATION WELL, NO SIGNS AND SYMPTOMS OF RESPIRATORY DISTRESS.
[2020-10-09 04:34] LABS: BASOPHILS # (AUTO) 0.1 /CMM (0.0-0.2); BASOPHILS % (AUTO) 0.6 % (0.0-2.0); EOSINOPHILS % (AUTO) 5.6 % (0.0-6.0); HEMATOCRIT 27 % (39-51); HEMOGLOBIN 8.9 g/dL (13.5-17.5); LYMPHOCYTES # (AUTO) 1.1 /CMM (0.8-4.8); LYMPHOCYTES % (AUTO) 11.9 % (20.0-44.0); MEAN CORPUSCULAR HGB CONC 33 g/dl (31.0-36.0); MEAN CORPUSCULAR VOLUME 96 fL (80-96); NEUTROPHILS # (AUTO) 6.9 /CMM (1.8-8.9); NEUTROPHILS % (AUTO) 71.9 % (43.0-81.0); PLATELET COUNT (AUTO) 263 /CMM (150-450); RED BLOOD CELL COUNT(AUTO) 2.83 MIL/uL (4.5-6.0); WHITE BLOOD COUNT (AUTO) 9.5 K/uL (4.3-11.0)
[2020-10-09 04:50] LABS: CALCIUM, SERUM 8.2 mg/dL (8.5-10.1); CREATININE 1.1 mg/dL (0.6-1.3); PHOSPHORUS 3.8 mg/dL (2.5-4.9)
[2020-10-09 05:31] LABS: ABG BASE EXCESS 3.5 mmol/L; ABG OXYGEN SATURATION 98.5 % (92.0-98.5); ABG PCO2 40.2 mmHg (35.0-45.0); ABG PH 7.456 (7.350-7.450); ABG PO2 117.5 mmHg (75.0-100.0); AaDO2 193.8 mmHg; COHb 0.7 % (0.5-1.5); MetHb 0.1 % (0.0-1.5); O2Hb 97.7 % (94.0-97.0); SITE, ABG Right Radial
[2020-10-09] MEDS: VANCOMYCIN HCL 125 MG/2.5 ML ORAL.SUSP PO SCH ×5 (06:41→23:20)
--- NOTE | 2020-10-09 06:45 | NUR ---
COMMERCIAL ROOFING ESTIMATOR CLOSING NOTES PATIENT RESTING IN BED, REMAINS WITH 1:1 SITTER AT BEDSIDE FOR SAFETY. PATIENT REMAINS ON HIGH FLOW NASAL CANNLA @ 30LPM, FIO2 50%. WILL ENDORSE THE PATIENT TO THE AM SHIFT NURSE FOR COMFORT
[2020-10-09] MEDS: THIAMINE HCL 100 MG TABLET PO SCH (08:33)
[2020-10-09] MEDS: FIDAXOMICIN 200 MG TABLET PO SCH ×2 (08:34→17:06)
[2020-10-09] MEDS: MISOPROSTOL 100 MCG TABLET PO SCH ×4 (08:34→20:24)
[2020-10-09] MEDS: PANTOPRAZOLE 40 MG VIAL IV SCH ×2 (08:34→20:24)
[2020-10-09] MEDS: PROSOURCE / PROSTAT (PYXIS) 30 ML UDC GT SCH ×2 (08:34→17:09)
[2020-10-09] MEDS: CHOLECALCIFEROL 1,000 UNIT TABLET (VIT D3) PO SCH (08:34)
[2020-10-09] MEDS: ASCORBIC ACID 500 MG TABLET PO SCH (08:34)
[2020-10-09] MEDS: CLOTRIMAZOLE 1% 15 GM TUBE TP SCH ×2 (08:34→17:09)
[2020-10-09] MEDS: ZINC SULFATE 220 MG CAPSULE PO SCH (08:34)
[2020-10-09] MEDS: HYDROCORTISONE SOD SUCCINATE 100 MG/2 ML VIAL IV SCH (08:34)
[2020-10-09] MEDS: VORICONAZOLE 200 MG TABLET PO SCH ×2 (08:34→20:24)
[2020-10-09] MEDS: LISINOPRIL (10MG) 10 MG TABLET NG SCH ×2 (08:35→17:07)
[2020-10-09] MEDS: NITROGLYCERIN 30 GM TUBE TP SCH ×2 (08:36→20:25)
[2020-10-09] MEDS: POTASSIUM CHLORIDE 20 MEQ TAB.PRT.SR PO SCH ×3 (08:53→12:20)
[2020-10-09] MEDS: ACETAMINOPHEN 325 MG TABLET PO PRN (08:56)
--- NOTE | 2020-10-09 18:54 | NUR ---
RN CLOSING NOTES NO SIGNIFICANT CHANGE NOTED. TOLERATING 02 VIA NC. KEPT HOB ELEVATED. DENIES ANY PAIN. TOLERATES PO MEAL WELL. SAT ON CHAIR FOR 1HR. KEPT CLEAN AND DRY. FC IN PLACE. KEPT COMFORTABLE. WILL ENDORSE FOR CONTINUITY OF CARE
[2020-10-09] MEDS: GUAIFENESIN/D-METHORPHAN HB 5 ML UDC PO PRN (20:25)
[2020-10-10] VITALS (21 sets, daily range): BP systolic 120–144; BP diastolic 60–103
--- NOTE | 2020-10-10 03:00 | NUR ---
COPY PREPARER NOTES PATIENT ABLE TO RECOGNIZE PRIMARY RN, STATING "IM STARTING TO REMEMBER THINGS." RN ENCOURAGED PATIENT TO RECALL PRIOR EVENTS ABLE.
[2020-10-10 04:33] LABS: BASOPHILS % (AUTO) 0.4 % (0.0-2.0); EOSINOPHILS % (AUTO) 3.3 % (0.0-6.0); HEMATOCRIT 28 % (39-51); HEMOGLOBIN 9.3 g/dL (13.5-17.5); LYMPHOCYTES # (AUTO) 1.3 /CMM (0.8-4.8); LYMPHOCYTES % (AUTO) 11.8 % (20.0-44.0); MEAN CORPUSCULAR HGB CONC 33 g/dl (31.0-36.0); MEAN CORPUSCULAR VOLUME 95 fL (80-96); MONOCYTES # (AUTO) 1.2 /CMM (0.1-1.30); NEUTROPHILS # (AUTO) 7.8 /CMM (1.8-8.9); NEUTROPHILS % (AUTO) 73.5 % (43.0-81.0); PLATELET COUNT (AUTO) 301 /CMM (150-450); RED BLOOD CELL COUNT(AUTO) 2.94 MIL/uL (4.5-6.0); WHITE BLOOD COUNT (AUTO) 10.7 K/uL (4.3-11.0)
[2020-10-10 04:51] LABS: CALCIUM, SERUM 8.2 mg/dL (8.5-10.1); CREATININE 1.1 mg/dL (0.6-1.3); MAGNESIUM 1.9 mg/dL (1.8-2.4)
[2020-10-10] MEDS: GUAIFENESIN/D-METHORPHAN HB 5 ML UDC PO PRN ×2 (04:53→20:00)
[2020-10-10] MEDS: VANCOMYCIN HCL 125 MG/2.5 ML ORAL.SUSP PO SCH ×3 (06:07→17:02)
--- NOTE | 2020-10-10 06:47 | NUR ---
FINISH REPAIR WORKER NOTES MENTAL STATUS IMPROVED, PATIENT MORE LUCID COMPARED TO PREVIOUS ASSESSMENT. PATIENT ALERT AND ORIENTED X3 AT THIS TIME. 1:1 SITTER REMAINS AT BEDSIDE FOR PATIENT SAFETY. WILL CONTINUE TO MONITOR Addendum: 10/10/20 at 0651 by SREEKANTH ATKINSON RN REMAINS ON O2 VIA NC @ 6LPM, TOLERATED WELL THROUGHOUT SHIFT, FREE FROM ANY EPISODES OR SIGNS AND SYMPTOMS OF RESPIRATORY DISTRESS. ROBITUSSIN ADMINISTERED X2 THROUGHOUT SHIFT, EFFECTIVE
[2020-10-10] MEDS: NITROGLYCERIN 30 GM TUBE TP SCH ×2 (09:00→23:31)
[2020-10-10] MEDS: POTASSIUM CHLORIDE 20 MEQ TAB.PRT.SR PO SCH ×3 (09:00→14:49)
[2020-10-10] MEDS: ZINC SULFATE 220 MG CAPSULE PO SCH (09:00)
[2020-10-10] MEDS: LISINOPRIL (10MG) 10 MG TABLET NG SCH ×2 (09:00→17:00)
[2020-10-10] MEDS: PANTOPRAZOLE 40 MG VIAL IV SCH ×2 (09:34→21:48)
[2020-10-10] MEDS: ASCORBIC ACID 500 MG TABLET PO SCH (09:35)
[2020-10-10] MEDS: HYDROCORTISONE SOD SUCCINATE 100 MG/2 ML VIAL IV SCH (09:35)
[2020-10-10] MEDS: VORICONAZOLE 200 MG TABLET PO SCH (09:36)
[2020-10-10] MEDS: CHOLECALCIFEROL 1,000 UNIT TABLET (VIT D3) PO SCH (09:36)
[2020-10-10] MEDS: MISOPROSTOL 100 MCG TABLET PO SCH ×4 (09:36→21:48)
[2020-10-10] MEDS: FIDAXOMICIN 200 MG TABLET PO SCH ×2 (09:36→17:01)
[2020-10-10] MEDS: THIAMINE HCL 100 MG TABLET PO SCH (09:36)
--- NOTE | 2020-10-10 10:46 | NUR ---
Ambulate with PT from bedside to short hallway about 100fr. O26L NC coughing non prod, tolerated well. Will leave up in chair. Able to understand instructions and plan of care. Sitter at bedside. Addendum: 10/10/20 at 1512 by LONDON BOUCHER RN Total KCL po 60meq given as ordered. Plan of care and treatment explained for the day. Nate understands well. PICC flushed and patent. O2 4L NC resting after 2nd PT at bedside. HR 130s, sats 95%. sitter at bedside.
[2020-10-10] MEDS: PROSOURCE / PROSTAT (PYXIS) 30 ML UDC GT SCH ×2 (12:07→17:00)
[2020-10-10] MEDS: CLOTRIMAZOLE 1% 15 GM TUBE TP SCH ×2 (12:08→17:02)
[2020-10-10] MEDS ORDERED: POTASSIUM CHLORIDE 20 MEQ TAB.PRT.SR PO ONE ×2 (14:47→14:48)
--- NOTE | 2020-10-10 16:00 | NUR ---
RN NOTES PT RECEIVED ON BED , A/Ox3-4, CONTINUE TO MONITOR .
--- NOTE | 2020-10-10 18:43 | NUR ---
RN NOTES PT STABLE, SITTER AT THE BEDSIDE, NO SIGNFICANT CHANGES NOTED , WILL ENDOSE TO REFUELING RAMP SUPERVISOR NURSE FOR CONTINUITY OF CARE .
--- NOTE | 2020-10-10 19:40 | NUR ---
auricular acupuncturist, initial assessment. received the pt rest on the bed. awake, alert. lethargic,oxygen 2l via nasal cannula. sat 98%. no acute distress noted. cardiac cath lab technologist showing nsr. will continue to monitor vitals.
[2020-10-10] MEDS: ACETAMINOPHEN 325 MG TABLET PO PRN (20:26)
[2020-10-11] VITALS (20 sets, daily range): BP systolic 102–155; BP diastolic 60–101
[2020-10-11] MEDS: VANCOMYCIN HCL 125 MG/2.5 ML ORAL.SUSP PO SCH ×5 (01:58→23:57)
[2020-10-11] MEDS: GUAIFENESIN/D-METHORPHAN HB 5 ML UDC PO PRN (01:58)
--- NOTE | 2020-10-11 02:00 | NUR ---
Received patient oriented x4 resting comfortably in bed.SR.VSS.Respiration even and unlabored.Tolerating O2 4LNC SPO2 99%.FC to gravity drainage.Denies pain or sob. Self turn in bed.Safety precaution maintained.1:1 SITTER at bedside at all times. Addendum: 10/12/20 at 0307 by BRENDAN ALANIS RN PLEASE DISREGARD CHARTED ON WRONG TIME FRAME.
--- NOTE | 2020-10-11 07:00 | NUR ---
RN NOTES RECEIVED PT ON BED, A/Ox3-4, ON 4 L O2 N/C, O2 SAT WNL, CONTINUE TO MONITOR .
--- NOTE | 2020-10-11 07:20 | NUR ---
agriculture research director. ct chest done.
--- NOTE | 2020-10-11 07:22 | NUR ---
agriculture internship. during shift no episode of desaturation noted. no confused.
--- NOTE | 2020-10-11 07:23 | NUR ---
agricultural produce commission agent. am care, given. oxygen 6l via nasal cannula tolerated well.
[2020-10-11 08:24] LABS: BASOPHILS # (AUTO) 0.1 /CMM (0.0-0.2); BASOPHILS % (AUTO) 0.6 % (0.0-2.0); EOSINOPHILS % (AUTO) 4.9 % (0.0-6.0); HEMATOCRIT 30 % (39-51); HEMOGLOBIN 9.8 g/dL (13.5-17.5); LYMPHOCYTES # (AUTO) 1.5 /CMM (0.8-4.8); LYMPHOCYTES % (AUTO) 15.1 % (20.0-44.0); MEAN CORPUSCULAR HGB CONC 33 g/dl (31.0-36.0); MEAN CORPUSCULAR VOLUME 95 fL (80-96); MONOCYTES % (AUTO) 9.8 % (2.0-12.0); NEUTROPHILS # (AUTO) 7.1 /CMM (1.8-8.9); NEUTROPHILS % (AUTO) 69.6 % (43.0-81.0); PLATELET COUNT (AUTO) 310 /CMM (150-450); RED BLOOD CELL COUNT(AUTO) 3.15 MIL/uL (4.5-6.0); WHITE BLOOD COUNT (AUTO) 10.2 K/uL (4.3-11.0)
[2020-10-11] MEDS: CHOLECALCIFEROL 1,000 UNIT TABLET (VIT D3) PO SCH (08:29)
[2020-10-11] MEDS: ASCORBIC ACID 500 MG TABLET PO SCH (08:30)
[2020-10-11] MEDS: THIAMINE HCL 100 MG TABLET PO SCH (08:30)
[2020-10-11] MEDS: LISINOPRIL (10MG) 10 MG TABLET NG SCH ×2 (08:30→16:36)
[2020-10-11] MEDS: PANTOPRAZOLE 40 MG VIAL IV SCH ×2 (08:31→21:35)
[2020-10-11] MEDS: HYDROCORTISONE SOD SUCCINATE 100 MG/2 ML VIAL IV SCH (08:31)
[2020-10-11] MEDS: ZINC SULFATE 220 MG CAPSULE PO SCH (08:31)
[2020-10-11] MEDS: MISOPROSTOL 100 MCG TABLET PO SCH ×4 (08:31→21:35)
[2020-10-11] MEDS: FIDAXOMICIN 200 MG TABLET PO SCH ×2 (08:32→16:36)
[2020-10-11] MEDS: NITROGLYCERIN 30 GM TUBE TP SCH ×2 (08:32→21:36)
[2020-10-11] MEDS: CLOTRIMAZOLE 1% 15 GM TUBE TP SCH ×2 (08:33→16:37)
[2020-10-11] MEDS: PROSOURCE / PROSTAT (PYXIS) 30 ML UDC GT SCH ×2 (08:34→16:37)
[2020-10-11 08:44] LABS: CALCIUM, SERUM 8.4 mg/dL (8.5-10.1)
[2020-10-11 08:59] LABS: POTASSIUM 2.8 mmol/L (3.5-5.1)
[2020-10-11] MEDS: POTASSIUM CHLORIDE 20 MEQ POWDER PACKET PO SCH ×3 (09:33→12:00)
--- NOTE | 2020-10-11 11:00 | NUR ---
RN NOTES PT REFUSED TO WORK WITH PT , PUMP RUNNER NOTIFED .
[2020-10-11] MEDS: BENZONATATE 100 MG CAPSULE PO PRN ×3 (11:18→21:36)
[2020-10-11] MEDS: ACETAMINOPHEN 325 MG TABLET PO PRN (15:55)
--- NOTE | 2020-10-11 18:00 | NUR ---
RN NOTES PT REMANINS ON 4L O2 N/C , 02 SAT WNL , REFUSED TO BE OUT OF THE BED TO CHAIR ON THIS SHIFT. NO SIGNIFICANT CHANGES NOTED , WILL ENDORSE TO NUTRITION INTERNSHIP NURSE FOR CONTINUITY OF CARE .
--- NOTE | 2020-10-11 20:00 | NUR ---
Received patient awake and oriented x4 resting comfortably in bed.SR.VSS.Respiration even and unlabored.Tolerating O2 2LNC SPO2 99%.FC to gravity drainage.Denies pain or sob. Self turn in bed.Safety precaution maintain with 1:1 sitter at bedside at all times.
--- NOTE | 2020-10-11 22:00 | NUR ---
Patient verbalized he is hungry.Diet served ate with good appetite.
[2020-10-12] VITALS (26 sets, daily range): BP systolic 102–147; BP diastolic 73–109
[2020-10-12] MEDS: LORAZEPAM INJ 2 MG/ML VIAL IV PRN ×2 (00:48→14:44)
--- NOTE | 2020-10-12 00:50 | NUR ---
Patient awake Temp 98.8 orally.Tachycardic HR 140'S verbalized I'm anxious.PRN Ativan administered as requested. Safety precaution maintained.1:1 SITTER at beside at all times.
[2020-10-12 05:37] LABS: CALCIUM, SERUM 8.7 mg/dL (8.5-10.1); CREATININE 1.1 mg/dL (0.6-1.3); POTASSIUM 3.5 mmol/L (3.5-5.1)
[2020-10-12] MEDS: VANCOMYCIN HCL 125 MG/2.5 ML ORAL.SUSP PO SCH ×3 (05:53→18:08)
--- NOTE | 2020-10-12 07:00 | NUR ---
Patient had several hours of sleep post Ativan.Bed bath rendered.Complete linens changed. No acute distress noted.VSS.ST.Due medications administered.Kept comfortable.
[2020-10-12] MEDS: HYDROCORTISONE SOD SUCCINATE 100 MG/2 ML VIAL IV SCH (08:20)
[2020-10-12] MEDS: PANTOPRAZOLE 40 MG VIAL IV SCH ×2 (08:20→21:30)
[2020-10-12] MEDS: MISOPROSTOL 100 MCG TABLET PO SCH ×4 (08:20→21:30)
[2020-10-12] MEDS: ASCORBIC ACID 500 MG TABLET PO SCH (08:20)
[2020-10-12] MEDS: ZINC SULFATE 220 MG CAPSULE PO SCH (08:20)
[2020-10-12] MEDS: CHOLECALCIFEROL 1,000 UNIT TABLET (VIT D3) PO SCH (08:20)
[2020-10-12] MEDS: THIAMINE HCL 100 MG TABLET PO SCH (08:20)
[2020-10-12] MEDS: LISINOPRIL (10MG) 10 MG TABLET NG SCH ×2 (08:22→16:49)
[2020-10-12] MEDS: FIDAXOMICIN 200 MG TABLET PO SCH ×2 (08:22→17:06)
[2020-10-12] MEDS: CLOTRIMAZOLE 1% 15 GM TUBE TP SCH ×2 (08:22→16:49)
[2020-10-12] MEDS: PROSOURCE / PROSTAT (PYXIS) 30 ML UDC GT SCH ×2 (08:24→16:49)
--- NOTE | 2020-10-12 09:00 | NUR ---
ICU/RN PT IS AWAKE,ALERT.V/S STABLE,AFEBRILE.HR -138 BPM.NO PAIN REPORTED AT THIS TIME.RIGHT UPPER ARM HAS PICC LINE.PT IS ON 4L N/C SAT O2-100%. F/C DRAINING WITH YELLOW URINE.PT EATS 100% FROM HIS BREAKFAST TRAY. DUE MEDS ARE GIVEN ORDERED.SITTER AT BEDSIDE.CONTINUE MONITORING.LABS REVIEW.
[2020-10-12] MEDS: NITROGLYCERIN 30 GM TUBE TP SCH ×2 (11:39→21:31)
[2020-10-12] MEDS: BENZONATATE 100 MG CAPSULE PO PRN (19:45)
--- NOTE | 2020-10-12 20:00 | NUR ---
Received patient a/ox4 but with periods of confusion.Safety measures maintained with 1:1 sitter at bedside at all times.Afebrile.ST 130's.Tachypneic RR 32.With O2 4LNC. SPO2 99%.With non productive cough PRN cough medication administered.FC to gravity. Denies pain.Continue monitoring.
--- NOTE | 2020-10-12 22:00 | NUR ---
Patient verbalized he is hungry.Diet served ate with appetite.
[2020-10-13] VITALS (18 sets, daily range): BP systolic 102–140; BP diastolic 63–100
[2020-10-13] MEDS: VANCOMYCIN HCL 125 MG/2.5 ML ORAL.SUSP PO SCH ×4 (00:26→17:47)
[2020-10-13] MEDS: LORAZEPAM INJ 2 MG/ML VIAL IV PRN (00:27)
--- NOTE | 2020-10-13 01:30 | NUR ---
Patient complains of insomnia.PRN Ativan administered as requested.Safety measures maintained.
--- NOTE | 2020-10-13 04:00 | NUR ---
Per patient get nervous when [employer] called next room.Became tachycardic 130's-14'0's. Emotional support rendered.
[2020-10-13] MEDS: GUAIFENESIN 300 MG/15 ML UDC PO PRN (04:06)
[2020-10-13 05:23] LABS: BASOPHILS # (AUTO) 0.1 /CMM (0.0-0.2); BASOPHILS % (AUTO) 0.5 % (0.0-2.0); EOSINOPHILS % (AUTO) 4.8 % (0.0-6.0); HEMATOCRIT 31 % (39-51); HEMOGLOBIN 10.2 g/dL (13.5-17.5); MEAN CORPUSCULAR HGB CONC 33 g/dl (31.0-36.0); MEAN CORPUSCULAR VOLUME 94 fL (80-96); MONOCYTES % (AUTO) 9.1 % (2.0-12.0); NEUTROPHILS # (AUTO) 7.4 /CMM (1.8-8.9); NEUTROPHILS % (AUTO) 67.6 % (43.0-81.0); PLATELET COUNT (AUTO) 337 /CMM (150-450); RED BLOOD CELL COUNT(AUTO) 3.27 MIL/uL (4.5-6.0)
[2020-10-13 05:33] LABS: CALCIUM, SERUM 8.6 mg/dL (8.5-10.1); CREATININE 1.2 mg/dL (0.6-1.3); POTASSIUM 2.9 mmol/L (3.5-5.1)
--- NOTE | 2020-10-13 07:15 | NUR ---
Patient awake vss.No distress noted.AM CARE done.Patient house hurt is with patient. Possible transfer to [facility] after the weekend per order.Report given to day shift for COMFORT.
[2020-10-13] MEDS: BENZONATATE 100 MG CAPSULE PO PRN ×2 (09:00→20:32)
[2020-10-13] MEDS: FIDAXOMICIN 200 MG TABLET PO SCH ×2 (09:05→17:48)
[2020-10-13] MEDS: THIAMINE HCL 100 MG TABLET PO SCH (09:05)
[2020-10-13] MEDS: ASCORBIC ACID 500 MG TABLET PO SCH (09:07)
[2020-10-13] MEDS: POTASSIUM CHLORIDE 20 MEQ TAB.PRT.SR PO SCH ×5 (09:07→15:11)
[2020-10-13] MEDS: MISOPROSTOL 100 MCG TABLET PO SCH ×4 (09:08→20:32)
[2020-10-13] MEDS: CHOLECALCIFEROL 1,000 UNIT TABLET (VIT D3) PO SCH (09:08)
[2020-10-13] MEDS: LISINOPRIL (10MG) 10 MG TABLET NG SCH ×2 (09:15→17:47)
[2020-10-13] MEDS: ZINC SULFATE 220 MG CAPSULE PO SCH (09:16)
[2020-10-13 09:21] LABS: MAGNESIUM 1.8 mg/dL (1.8-2.4); PHOSPHORUS 3.8 mg/dL (2.5-4.9)
[2020-10-13] MEDS: NITROGLYCERIN 30 GM TUBE TP SCH ×2 (09:25→20:33)
[2020-10-13] MEDS: PANTOPRAZOLE 40 MG VIAL IV SCH ×2 (09:26→20:32)
[2020-10-13] MEDS: PROSOURCE / PROSTAT (PYXIS) 30 ML UDC GT SCH ×2 (09:46→17:48)
[2020-10-13] MEDS: CLOTRIMAZOLE 1% 15 GM TUBE TP SCH ×2 (09:46→17:49)
[2020-10-13 09:55] LABS: THYROID STIMULATING HORMONE 0.735 uIU/mL (0.358-3.74)
[2020-10-13] MEDS: LORAZEPAM 0.5 MG TABLET PO PRN ×2 (12:30→20:32)
[2020-10-13] MEDS ORDERED: LORAZEPAM 0.5 MG TABLET PO ONE (18:30)
[2020-10-13] MEDS: ACETAMINOPHEN 325 MG TABLET PO PRN (20:33)
[2020-10-14] VITALS (11 sets, daily range): BP systolic 120–133; BP diastolic 80–107
[2020-10-14] MEDS: GUAIFENESIN 300 MG/15 ML UDC PO PRN (00:27)
[2020-10-14] MEDS: VANCOMYCIN HCL 125 MG/2.5 ML ORAL.SUSP PO SCH ×3 (00:27→12:04)
[2020-10-14] MEDS: LORAZEPAM 0.5 MG TABLET PO PRN (03:54)
[2020-10-14] MEDS: BENZONATATE 100 MG CAPSULE PO PRN (05:10)
[2020-10-14] MEDS: ACETAMINOPHEN 325 MG TABLET PO PRN (05:10)
--- NOTE | 2020-10-14 05:30 | NUR ---
INTERACTIVE WEB DEVELOPER NOTES PATIENT BECAME RESTLESS, ANXIOUS, STATING " IM READY TO LEAVE NOW, WHY CANT THEY PICK ME UP SOONER." PATIENT REQUESTING TO CALL AND SPEAK TO PAYMAN. AFTER PATIENT SPOKE TO PAYMEN VIA CELL PHONE, PATIENT NOW LESS ANXIOUS. EMOTIONAL SUPPORT RENDERED. WILL MONITOR
[2020-10-14 05:32] LABS: BASOPHILS # (AUTO) 0.1 /CMM (0.0-0.2); BASOPHILS % (AUTO) 0.7 % (0.0-2.0); EOSINOPHILS % (AUTO) 6.1 % (0.0-6.0); HEMATOCRIT 32 % (39-51); HEMOGLOBIN 10.5 g/dL (13.5-17.5); LYMPHOCYTES # (AUTO) 1.6 /CMM (0.8-4.8); LYMPHOCYTES % (AUTO) 15.6 % (20.0-44.0); MEAN CORPUSCULAR HGB CONC 33 g/dl (31.0-36.0); MEAN CORPUSCULAR VOLUME 95 fL (80-96); MONOCYTES # (AUTO) 0.8 /CMM (0.1-1.30); MONOCYTES % (AUTO) 7.5 % (2.0-12.0); NEUTROPHILS # (AUTO) 7.3 /CMM (1.8-8.9); NEUTROPHILS % (AUTO) 70.1 % (43.0-81.0); PLATELET COUNT (AUTO) 326 /CMM (150-450); RED BLOOD CELL COUNT(AUTO) 3.39 MIL/uL (4.5-6.0); WHITE BLOOD COUNT (AUTO) 10.4 K/uL (4.3-11.0)
[2020-10-14 05:55] LABS: ALBUMIN 3.1 g/dL (3.4-5.0); BILIRUBIN,TOTAL 0.4 mg/dL (0.2-1.0); CALCIUM, SERUM 8.9 mg/dL (8.5-10.1); CREATININE 1.3 mg/dL (0.6-1.3); MAGNESIUM 1.9 mg/dL (1.8-2.4); PHOSPHORUS 3.5 mg/dL (2.5-4.9); POTASSIUM 3.6 mmol/L (3.5-5.1); TOTAL PROTEIN, SERUM 7.1 g/dL (6.4-8.2)
--- NOTE | 2020-10-14 07:00 | NUR ---
ELECTRIC NEEDLE SPECIALIST NOTES PATIENT VERBALIZED BEING UPSET, STATING "I DONT UNDERSTAND WHY I CANT LEAVE SOONER. THIS WAS DISCUSSED SINCE LAST WEEK." EMOTIONAL SUPPORT RENDERED. EXPLAINED TO PATIENT THAT PER PAYMEN, THE CASE MANAGEMENT TEAM STILL NEEDS TO FINISH THE PAPERWORK REGARDING TRANSFER OVER TO [place] [facility]. PATIENT VERBALIZED UNDERSTANDING, BUT REMAINS UPSET, STATING "THIS NEEDS TO BE EXPEDITED, THEY KNOW WHO I AM." SAFETY MAINTAINED
--- NOTE | 2020-10-14 07:10 | NUR ---
RN NOTES Received patient A/O x4 but with periods of confusion. 1:1 sitter at bedside. Afebrile. on school bus monitor with current reading of ST 130's. On oxygen 4L/min via NC sating @100%. no complain of distress noted at this time. noted with FC intact and draining to gravity. Denies pain. Safety measures in place, bed in lowest locked position with side rails up x2. call light within reach. Will continue to monitor.
[2020-10-14] MEDS: CHOLECALCIFEROL 1,000 UNIT TABLET (VIT D3) PO SCH (08:14)
[2020-10-14] MEDS: ZINC SULFATE 220 MG CAPSULE PO SCH (08:14)
[2020-10-14] MEDS: PANTOPRAZOLE 40 MG VIAL IV SCH (08:14)
[2020-10-14] MEDS: ASCORBIC ACID 500 MG TABLET PO SCH (08:14)
[2020-10-14] MEDS: LISINOPRIL (10MG) 10 MG TABLET NG SCH (08:14)
[2020-10-14] MEDS: MISOPROSTOL 100 MCG TABLET PO SCH ×2 (08:15→12:04)
[2020-10-14] MEDS: THIAMINE HCL 100 MG TABLET PO SCH (08:15)
[2020-10-14] MEDS: FIDAXOMICIN 200 MG TABLET PO SCH (08:15)
[2020-10-14] MEDS: NITROGLYCERIN 30 GM TUBE TP SCH (08:16)
[2020-10-14] MEDS: CLOTRIMAZOLE 1% 15 GM TUBE TP SCH (08:17)
[2020-10-14] MEDS: PROSOURCE / PROSTAT (PYXIS) 30 ML UDC GT SCH (08:17)
[2020-10-14] MEDS ORDERED: LORAZEPAM INJ 2 MG/ML VIAL IV ONE (10:00)
--- NOTE | 2020-10-14 10:40 | NUR ---
RN NOTES PATIENT IS GOING FOR MRI OF BRAIN VIA [facility], ACCOMPANIED BY 2 NURSE. NO SIGNS OF DISTRESS, ON CONTINUES OXYGEN AND TELE MONITOR. SAFETY IN PLACE, MRI CHECKLIST DONE, WILL CONTINUE TO MONITOR.
--- NOTE | 2020-10-14 11:30 | NUR ---
RN NOTES CAMEBACK FROM MRI OF BRAIN, NO SIGNS OF DISTRESS, PATIENT REFUSED TO BE CONNECTED TO TELE MONITOR, REFUSED O2 MONITORING, REFUSED BP MONITOING, PER PATIENT " I JUST WANT TO LEAVE RIGHT NOW". DR. BO MADE AWARE. CALLED AND SPOKE TO CM, BORDER PATROL OFFICER TIME @13:45. WILL F/U.
--- NOTE | 2020-10-14 14:00 | NUR ---
RN NOTES PATIENT DISCHARGED IN STABLE CONDITION. A/O X4. ABLE TO MAKEE NEEDS KNOWN, V/S TAKEN, STABLE AND RECORDED. DC WITH ARREGUIN CATHETER INTACT AND SERINA PICC LINE DUE TO PATIENT'S REQUEST, DR. BO MADE AWARE. REFUSED SKIN ASSESSMENT/ PICTURES. NAME ARM BAND REMOVED. ALL BELONGINGS CHECKED AND SIGNED. HEALTH TEACHINGS/DISCHARGED INSTRUCTION GIVEN TO PATIENT AND VERBALIZED UNDERSTANDING, PATIENT LEFT UNIT VIA GURNEY WITH 2 AMBULANCE STAFF WITH NO SIGNS OF DISTRESS. PATIENT IS GOING TO [facility], REPORT GIVEN TO WILLIAN THOMAS. CHARGE NURSE AWARE OF DISCHARGED.
== END 2020-10-14 14:32 | DRG 870 ==
LOC: TELE1 20:57 → ICU 09-03 09:49
PROVIDERS: ADMIT Student in an Organized Health Care Education/Training Program; ATTEND Nurse Practitioner Acute Care
PROC: XW033E5 Introduction of Remdesivir Anti-infective into Peripheral Vein, Percutaneous Approach, New Technology Group 5 (ICD-10-PCS; principal; 2020-09-03)
PROC: 02HV33Z Insertion of Infusion Device into Superior Vena Cava, Percutaneous Approach (ICD-10-PCS; 2020-09-03)
PROC: B548ZZA Ultrasonography of Superior Vena Cava, Guidance (ICD-10-PCS; 2020-09-03)
PROC: 5A1955Z Respiratory Ventilation, Greater than 96 Consecutive Hours (ICD-10-PCS; 2020-09-05)
PROC: 0BH18EZ Insertion of Endotracheal Airway into Trachea, Via Natural or Artificial Opening Endoscopic (ICD-10-PCS; 2020-09-05)
PROC: XW13325 Transfusion of Convalescent Plasma (Nonautologous) into Peripheral Vein, Percutaneous Approach, New Technology Group 5 (ICD-10-PCS; 2020-09-05)
PROC: XW033H5 Introduction of Tocilizumab into Peripheral Vein, Percutaneous Approach, New Technology Group 5 (ICD-10-PCS; 2020-09-05)
PROC: 0DB68ZX Excision of Stomach, Via Natural or Artificial Opening Endoscopic, Diagnostic (ICD-10-PCS; 2020-09-10)
PROC: 30233K1 Transfusion of Nonautologous Frozen Plasma into Peripheral Vein, Percutaneous Approach (ICD-10-PCS; 2020-09-10)
PROC: 30233N1 Transfusion of Nonautologous Red Blood Cells into Peripheral Vein, Percutaneous Approach (ICD-10-PCS; 2020-09-10)
PROC: 0DB68ZX Excision of Stomach, Via Natural or Artificial Opening Endoscopic, Diagnostic (ICD-10-PCS; 2020-09-20)
PROC: 5A1955Z Respiratory Ventilation, Greater than 96 Consecutive Hours (ICD-10-PCS; 2020-09-24)
PROC: 0BH18EZ Insertion of Endotracheal Airway into Trachea, Via Natural or Artificial Opening Endoscopic (ICD-10-PCS; 2020-09-24)
DX: A41.89 Other specified sepsis (principal); U07.1 COVID-19; G93.41 Metabolic encephalopathy; J96.01 Acute respiratory failure with hypoxia; K25.4 Chronic or unspecified gastric ulcer with hemorrhage; J12.82 Pneumonia due to coronavirus disease 2019; J15.9 Unspecified bacterial pneumonia; J69.0 Pneumonitis due to inhalation of food and vomit; N17.0 Acute kidney failure with tubular necrosis; R65.21 Severe sepsis with septic shock; E44.0 Moderate protein-calorie malnutrition; A04.72 Enterocolitis due to Clostridium difficile, not specified as recurrent; D68.69 Other thrombophilia; E87.3 Alkalosis; E27.40 Unspecified adrenocortical insufficiency; D62 Acute posthemorrhagic anemia; G72.81 Critical illness myopathy; I10 Essential (primary) hypertension; E87.6 Hypokalemia; F41.9 Anxiety disorder, unspecified; Z68.22 Body mass index [BMI] 22.0-22.9, adult; R74.01 Elevation of levels of liver transaminase levels; E78.1 Pure hyperglyceridemia; B96.81 Helicobacter pylori [H. pylori] as the cause of diseases classified elsewhere; K76.0 Fatty (change of) liver, not elsewhere classified; F29 Unspecified psychosis not due to a substance or known physiological condition; F39 Unspecified mood [affective] disorder; G62.9 Polyneuropathy, unspecified; K12.1 Other forms of stomatitis; K29.70 Gastritis, unspecified, without bleeding; K64.4 Residual hemorrhoidal skin tags; T38.0X5A Adverse effect of glucocorticoids and synthetic analogues, initial encounter; Y92.89 Other specified places as the place of occurrence of the external cause
CPT/HCPCS: 31720; 36415; 36569; 36600; 70551-TC; 71045-TC; 71250-TC; 76700-TC; 80048-TC; 80053-TC; 80061-TC; 80076-TC; 80202-TC; 82140-TC; 82272-TC; 82533; 82550-TC; 82728-TC; 82803-TC; 82962-TC; 83540-TC; 83605-TC; 83615-TC; 83735-TC; 84100-TC; 84132-TC; 84439-TC; 84443-TC; 84478-TC; 84484-TC; 85025-TC; 85027-TC; 85378-TC; 85385-TC; 85610-TC; 85730-TC; 86140; 86140-TC; 86480; 86850-TC; 87040-TC; 87070-TC; 87081-TC; 87086-TC; 87186-TC; 87806; 87899; 88305-TC; 88313-TC; 88342; 92521; 92526; 92611-TC; 93307-TC; 93970-TC; 94002-TC; 94003-TC; 94640-TC; 94760-TC; 94762-TC; 94799-TC; 97110-TC; 97112-TC; 97530-TC; A4216; A4217; A4349; A6253; A6403; C9113; G0378; J0171; J0290; J0330; J0456; J0692; J0696; J1100; J1200; J1644; J1650; J1720; J1940; J1956; J2060; J2185; J2248; J2250; J2270; J2370; J2543; J2704; J3010; J3262; J3370; J3475; J3480; J3490; J7030; J7040; J7042; J7050; J7060; P9016-BL; P9017-BL; Q0161; U0003